=== PATIENT | female | born 1975 | race Caucasian/White ===

== ENCOUNTER 2021-04-03 16:03 | Inpatient (IN) | payer SELFPAY ==
[~2021-04-03] VITALS: Ht 170.2 cm; Wt 95.0 kg
[2021-04-03] MEDS ORDERED: ONDANSETRON PF 4 MG/2 ML VIAL. IVP ONE (16:30)
[2021-04-03] MEDS ORDERED: IV NORMAL SALINE 1000ML BAG 1,000 ML IV ONE ×2 (16:30→17:30)
[2021-04-03 16:41] LABS: BILIRUBIN,URINE NEGATIVE (NEG); CLARITY,URINE CLOUDY; COLOR,URINE YELLOW; NITRITE,URINE NEGATIVE (NEG); PH,URINE 5.5 (<5.0-8.0); PROTEIN,URINE >=300 mg/dL (NEG-TRACE); UROBILINOGEN,URINE 0.2 mg/dL (0.2 mg/dL)
[2021-04-03 16:46] LABS: BARBITURATES NEG (NEG); BENZODIAZEPINES NEG (NEG); CANNABINOIDS POS (NEG); COCAINE NEG (NEG); METHADONE NEG (NEG); OPIATES NEG (NEG); PHENCYCLIDINE NEG (NEG)
[2021-04-03 16:48] LABS: AMPHETAMINE/METHAMPHETAMINE NEG (NEG)
[2021-04-03 16:50] LABS: HYALINE CASTS, URINE MODERATE /HPF; RBC,URINE TNTC /HPF (0-2); WBC,URINE 20-40 /HPF (0-4)
[2021-04-03 16:51] LABS: BACTERIA,URINE MODERATE /HPF (0-FEW)
[2021-04-03 17:01] LABS: BASO # 0.3 x10^3/uL (0.0-0.2); BASO % 1 % (0-3); EOS % 0 % (0-3); HEMATOCRIT 48.4 % (36.0-47.0); HEMOGLOBIN 15.7 g/dL (12.0-15.5); LYMPH # 1.4 x10^3/uL (1.0-4.8); LYMPH % 5 % (24-48); MEAN CORPUSCULAR HEMOGLOBIN 30 pg (25-35); MEAN CORPUSCULAR HGB CONC 33 g/dL (31-37); MEAN CORPUSCULAR VOLUME 93 fL (79-100); MONO # 2.7 x10^3/uL (0.0-1.1); MONO % 10 % (0-9); NEUT # 22.9 x10^3/uL (1.8-7.7); NEUT % 84 % (31-73); PLATELET COUNT 456 x10^3/uL (140-400); RED BLOOD COUNT 5.22 x10^6/uL (3.50-5.40); RED CELL DISTRIBUTION WIDTH 13.2 % (11.5-14.5); WHITE BLOOD COUNT 27.3 x10^3/uL (4.0-11.0)
[2021-04-03] MEDS: MORPHINE SULFATE 4 MG/ML INJ. IV/SQ PRN ×2 (17:01→19:22)
[2021-04-03 17:17] LABS: ALBUMIN 3.6 g/dL (3.4-5.0); ALBUMIN/GLOBULIN RATIO 0.7 (1.0-1.7); CALCIUM 9.9 mg/dL (8.5-10.1); CREATININE 1.5 mg/dL (0.6-1.0); GFR 37.6; POTASSIUM 5.2 mmol/L (3.5-5.1); TOTAL BILIRUBIN 0.4 mg/dL (0.2-1.0); TOTAL PROTEIN 8.8 g/dL (6.4-8.2)
--- NOTE | 2021-04-03 17:42 | RAD ---
INDICATION: Reason: flank pain hx of kidney stones / Spl. Instructions: / History: . COMPARISON: None. TECHNIQUE: Axial CT images obtained through the abdomen and pelvis without contrast. One or more of the following individualized dose reduction techniques were utilized for this examinat ion: 1. Automated exposure control; 2. Adjustment of the mA and/or kV according to patient size; 3 . Use of iterative reconstruction technique. FINDINGS: Mild prominence of the wall the distal esophagus which is not very distended. Abdominal aorta is not aneurysmal. Suspected small fat-containing inguinal hernia. Low-density within the liver at the falciform ligament commonly from focal fat. No peripancreatic fluid collection. The gallbladder is distended at time of exam. Splenic calcified granuloma. Left-sided moderate hydronephrosis and hydroureter with perinephric edema. There is a suspected 3 mm high density focus within the urinary bladder. Urinary bladder is decompressed with prominence the wall and some haziness of the adjacent fat. Nonobstructive right renal stone without right-sided hydronephrosis. No periappendiceal inflammatory changes. No dilated loops of bowel to suggest obstruction. Tiny fat-containing umbilical hernia. Degenerative changes the spine. Sclerosis at sacroiliac joints which can be seen with chronic sacroiliitis or degenerative changes. There is a similar appearance at the pubic symphysis. IMPRESSION: * Left-sided perinephric and periureteral edema with hydronephrosis and hydroureter. This could be e ither from a recently passed ureter stone or infectious in nature from urinary tract infection. * Wall thickening of the urinary bladder with adjacent edema to the fat. Causes such as cystitis are within the differential. * Nonobstructive right renal stone. * Mild prominence the wall the distal esophagus which could be from lack of distention but would cor relate with symptoms given that a pathologic cause such as esophagitis is not excluded. Esophageal ma ss would be less likely in a patient of this age unless they have risk factors. Electronically signed by: Elder Dias MD (04/03/2021 5:40 PM) [id number]
[2021-04-03 18:17] LABS: % LYMPHS 7 % (24-48); % SEGS 78 % (35-66)
[2021-04-03 18:18] LABS: % BANDS 9 % (0-9); % MONOS 6 % (0-10); PLT ESTIMATE INCREASED (ADEQUATE)
[2021-04-03] MEDS ORDERED: INSULIN REGULAR VIAL 100 UNIT in IV NORMAL SALINE 100ML 100 ML IV PRN (19:00)
[2021-04-03] MEDS ORDERED: IV 1/2 NORMAL SALINE 1,000 ML IV SCH (19:00)
[2021-04-03] MEDS ORDERED: POTASSIUM CHLORIDE 10MEQ 100 ML IV PRN ×3 (19:00)
--- NOTE | 2021-04-03 19:12 | PDOC1 ---
History and Physical Date of Admission Date of Admission DATE: 04/03/21 TIME: 18:58 Identification/Chief Complaint Chief Complaint Abdominal pain Source Source: Caregiver, Chart review, Patient History of Present Illness History of Present Illness Ms Bryan is a 45yo female with PMHx DM2, nephrolithiasis, neuropathy who presents to the ED today complaining of dysuria for 1 week and severe bilateral flank pain, symptoms began 3 days ago. She is also complaining of nausea, vomiting which began today, 04/03/2021. Denies any fever, but does have chills. Significant other bedside notes that she has had episodic confusion prior to moving from [place] and has been to neurology initially though very early onset dementia. Of note her hemoglobin A1c has never been less than 14. Since we will continue this for years ago she was treated with nausea and vomiting that started 1 month woman as well as Trulicity. Struggled with follow-up and was going to the "[facility]" clinic and stopped since the COVID-19 pandemic and has not seen a physician in the past year and half. She has never been hospitalized previously but has had outpatient treatment for nephrolithiasis with ESWL. WBC 27.3, Hb 15.7, platelets 156, NA 130, K4.3, chloride 94 HCO3 5 BUN 31, CR 1.5, BUN 13, glucose 467, magnesium 1.9, calcium 9.9, lactic acid 2.7, AST 9, bilirubin 0.4, ALT 10, alkaline phos is 140, albumin 3.6. UDS positive for cannabinoids. UA with large protein large glucose positive ketones positive blood positive leukocyte esterase moderate bacteria negative urine hCG. CT abdomen pelvis with left-sided perinephric and periureteral edema with hydronephrosis and hydroureter, wall thickening of the urinary bladder with adjacent edema to the fat and nonobstructive right renal stone. Given IVF, IV levofloxacin, IV insulin and admitted for further care Past Medical History Cardiovascular: HTN CENTRAL NERVOUS SYSTEM: Periperal neuropathy Renal/: Other (Nephrolithiasis) Endocrine: Diabetes Past Surgical History Past Surgical History: Other (D&C, ESWL) Family History Family History: Diabetes, High Cholestrol, Hypertension Social History Smoke: No ALCOHOL: none Drugs: Marijuana Current Medications Current Medications Current Medications Sodium Chloride 1,000 ml @ 1,000 mls/hr 1X ONCE IV Last administered on 04/03/21at 17:01; Start 04/03/21 at 16:30; Stop 04/03/21 at 17:29; Status DC Morphine Sulfate (Morphine Sulfate) 4 mg PRN Q15MIN PRN IV/SQ PAIN GREATER THAN 3/10 Last administered on 04/03/21at 17:01; Start 04/03/21 at 16:30; Stop 04/04/21 at 16:29 Ondansetron HCl (Zofran) 4 mg 1X ONCE IVP Last administered on 04/03/21at 17:00; Start 04/03/21 at 16:30; Stop 04/03/21 at 16:37; Status DC Sodium Chloride 1,000 ml @ 1,000 mls/hr 1X ONCE IV ; Start 04/03/21 at 17:30; Stop 04/03/21 at 18:29; Status DC Levofloxacin/ Dextrose 100 ml @ 100 mls/hr 1X ONCE IV ; Start 04/03/21 at 18:00; Stop 04/03/21 at 18:59 Allergies Allergies: Coded Allergies: naproxen (Verified Allergy, Intermediate, 04/03/21) GIB Penicillins (Verified Allergy, Unknown, 04/03/21) ROS General: YES: Chills, Night Sweats, Fatigue, Malaise; No: Appetite, Other PSYCHOLOGICAL ROS: YES: Anxiety, Disorientation, Irritablity, Memory difficulties, Mood Swings, Obsessive thoughts; No: Behavioral Disorder, Concentration difficultie, Decreased libido, Depression, Hallucinations, Hostility, Physical abuse, Sexual abuse, Sleep disturbances, Suicidal ideation, Other Eyes: Yes Blurry vision; No Decreased vision, No Double vision, No Dry eyes, No Excessive tearing, No Eye Pain, No Itchy Eyes, No Loss of vision, No Photophobia, No Scotomata, No Uses contacts, No Uses glasses, No Other HEENT: No: Heacaches, Visual Changes, Hearing change, Nasal congestion, Nasal discharge, Oral lesions, Sinus pain, Sore Throat, Epistaxis, Sneezing, Snoring, Tinnitus, Vertigo, Vocal changes, Other ALLERGY AND IMMUNOLOGY: No: Hives, Insect Bite Sensitivity, Itchy/Watery Eyes, Nasal Congestion, Post Nasal Drip, Seasonal Allergies, Other Hematological and Lymphatic: No: Bleeding Problems, Blood Clots, Blood Transfusions, Brusing, Night Sweats, Pallor, Swollen Lymph Nodes, Other ENDOCRINE: No: Breast Changes, Galactorrhea, Hair Pattern Changes, Hot Flashes, Malaise/lethargy, Mood Swings, Palpitations, Polydipsia/polyuria, Skin Changes, Temperature Intolerance, Unexpected Weight Changes, Other Breast: No New/Changing Breast Lumps, No Nipple changes, No Nipple discharge, No Other Respiratory: No: Cough, Hemoptysis, Orthopnea, Pleuritic Pain, Shortness of breath, SOB with excertion, Sputum Changes, Stridor, Tachypnea, Wheezing, Other Cardiovascular: No Chest Pain, No Palpitations, No Orthopnea, No Paroxysmal Noc. Dyspnea, No Edema, No Lt Headedness, No Other Gastrointestinal: Yes Nausea, Yes Abdominal Pain; No Vomiting, No Diarrhea, No Constipation, No Melena, No Hematochezia, No Other Genitourinary: YES Dysuria, YES Frequency, YES Retention, YES Urgency, YES Pain , YES Flank Pain; No Incontinence, No Hematuria, No Discharge, No Other, No , No , No , No , No , No , No Musculoskeletal: No Gait Disturbance, No Joint Pain, No Joint Stiffness, No Joint Swelling, No Muscle Pain, No Muscular Weakness, No Pain In:, No Swelling In:, No Other Neurological: Yes Memory Loss, Yes Numbness/Tingling; No Behavorial Changes, No Bowel/Bladder ControlChng, No Confusion, No Dizziness, No Gait Disturbance, No Headaches, No Impaired Coord/balance, No Seizures, No Speech Problems, No Tremors, No Visual Changes, No Weakness, No Other Skin: No Dry Skin, No Eczema, No Hair Changes, No Lumps, No Mole Changes, No Mottling, No Nail Changes, No Pruritus, No Rash, No Skin Lesion Changes, No Other, No Acne Vitals Vitals Vital Signs Date Time Temp Pulse Resp B/P (MAP) Pulse Ox O2 Delivery O2 Flow Rate FiO2 04/03/21 17:01 24 100 Room Air 04/03/21 16:35 97.9 110 144/82 97.9 Labs Labs Laboratory Tests Test 04/03/21 16:15 04/03/21 16:27 04/03/21 16:54 Urine Collection Type Unknown Urine Color Yellow Urine Clarity Cloudy Urine pH 5.5 (<5.0-8.0) Urine Specific [place] 1.025 (1.000-1.030) Urine Protein >=300 mg/dL (NEG-TRACE) Urine Glucose (UA) >=1000 mg/dL (NEG) Urine Ketones (Stick) >=80 mg/dL (NEG) Urine Blood Large (NEG) Urine Nitrite Negative (NEG) Urine Bilirubin Negative (NEG) Urine Urobilinogen Dipstick 0.2 mg/dL (0.2 mg/dL) Urine Leukocyte Esterase Small (NEG) Urine RBC Tntc /HPF (0-2) Urine WBC 20-40 /HPF (0-4) Urine Squamous Epithelial Cells Mod /LPF Urine Bacteria Moderate /HPF (0-FEW) Urine Hyaline Casts Moderate /HPF Urine Mucus Mod /LPF Urine Opiates Screen Neg (NEG) Urine Methadone Screen Neg (NEG) Urine Barbiturates Neg (NEG) Urine Phencyclidine Screen Neg (NEG) Urine Amphetamine/Methamphetamine Neg (NEG) Urine Benzodiazepines Screen Neg (NEG) Urine Cocaine Screen Neg (NEG) Urine Cannabinoids Screen Pos (NEG) Urine Ethyl Alcohol Neg (NEG) Bedside Urine HCG, Qualitative Hcg negative (Negative) White Blood Count 27.3 x10^3/uL (4.0-11.0) Red Blood Count 5.22 x10^6/uL (3.50-5.40) Hemoglobin 15.7 g/dL (12.0-15.5) Hematocrit 48.4 % (36.0-47.0) Mean Corpuscular Volume 93 fL (79-100) Mean Corpuscular Hemoglobin 30 pg (25-35) Mean Corpuscular Hemoglobin Concent 33 g/dL (31-37) Red Cell Distribution Width 13.2 % (11.5-14.5) Platelet Count 456 x10^3/uL (140-400) Neutrophils (%) (Auto) 84 % (31-73) Lymphocytes (%) (Auto) 5 % (24-48) Monocytes (%) (Auto) 10 % (0-9) Eosinophils (%) (Auto) 0 % (0-3) Basophils (%) (Auto) 1 % (0-3) Neutrophils # (Auto) 22.9 x10^3/uL (1.8-7.7) Lymphocytes # (Auto) 1.4 x10^3/uL (1.0-4.8) Monocytes # (Auto) 2.7 x10^3/uL (0.0-1.1) Eosinophils # (Auto) 0.0 x10^3/uL (0.0-0.7) Basophils # (Auto) 0.3 x10^3/uL (0.0-0.2) Segmented Neutrophils % 78 % (35-66) Band Neutrophils % 9 % (0-9) Lymphocytes % 7 % (24-48) Monocytes % 6 % (0-10) Platelet Estimate Increased (ADEQUATE) Sodium Level 130 mmol/L (136-145) Potassium Level 5.2 mmol/L (3.5-5.1) Chloride Level 94 mmol/L (98-107) Carbon Dioxide Level 5 mmol/L (21-32) Anion Gap 31 (6-14) Blood Urea Nitrogen 13 mg/dL (7-20) Creatinine 1.5 mg/dL (0.6-1.0) Estimated GFR (Cockcroft-Gault) 37.6 BUN/Creatinine Ratio 9 (6-20) Glucose Level 467 mg/dL (70-99) Calcium Level 9.9 mg/dL (8.5-10.1) Total Bilirubin 0.4 mg/dL (0.2-1.0) Aspartate Amino Transf (AST/SGOT) 9 U/L (15-37) Alanine Aminotransferase (ALT/SGPT) 10 U/L (14-59) Alkaline Phosphatase 140 U/L (46-116) Total Protein 8.8 g/dL (6.4-8.2) Albumin 3.6 g/dL (3.4-5.0) Albumin/Globulin Ratio 0.7 (1.0-1.7) Lipase 64 U/L (73-393) Ethyl Alcohol Level < 10 mg/dL (0-10) Laboratory Tests Test 04/03/21 16:15 04/03/21 16:27 04/03/21 16:54 Urine Collection Type Unknown Urine Color Yellow Urine Clarity Cloudy Urine pH 5.5 (<5.0-8.0) Urine Specific [place] 1.025 (1.000-1.030) Urine Protein >=300 mg/dL (NEG-TRACE) Urine Glucose (UA) >=1000 mg/dL (NEG) Urine Ketones (Stick) >=80 mg/dL (NEG) Urine Blood Large (NEG) Urine Nitrite Negative (NEG) Urine Bilirubin Negative (NEG) Urine Urobilinogen Dipstick 0.2 mg/dL (0.2 mg/dL) Urine Leukocyte Esterase Small (NEG) Urine RBC Tntc /HPF (0-2) Urine WBC 20-40 /HPF (0-4) Urine Squamous Epithelial Cells Mod /LPF Urine Bacteria Moderate /HPF (0-FEW) Urine Hyaline Casts Moderate /HPF Urine Mucus Mod /LPF Urine Opiates Screen Neg (NEG) Urine Methadone Screen Neg (NEG) Urine Barbiturates Neg (NEG) Urine Phencyclidine Screen Neg (NEG) Urine Amphetamine/Methamphetamine Neg (NEG) Urine Benzodiazepines Screen Neg (NEG) Urine Cocaine Screen Neg (NEG) Urine Cannabinoids Screen Pos (NEG) Urine Ethyl Alcohol Neg (NEG) Bedside Urine HCG, Qualitative Hcg negative (Negative) White Blood Count 27.3 x10^3/uL (4.0-11.0) Red Blood Count 5.22 x10^6/uL (3.50-5.40) Hemoglobin 15.7 g/dL (12.0-15.5) Hematocrit 48.4 % (36.0-47.0) Mean Corpuscular Volume 93 fL (79-100) Mean Corpuscular Hemoglobin 30 pg (25-35) Mean Corpuscular Hemoglobin Concent 33 g/dL (31-37) Red Cell Distribution Width 13.2 % (11.5-14.5) Platelet Count 456 x10^3/uL (140-400) Neutrophils (%) (Auto) 84 % (31-73) Lymphocytes (%) (Auto) 5 % (24-48) Monocytes (%) (Auto) 10 % (0-9) Eosinophils (%) (Auto) 0 % (0-3) Basophils (%) (Auto) 1 % (0-3) Neutrophils # (Auto) 22.9 x10^3/uL (1.8-7.7) Lymphocytes # (Auto) 1.4 x10^3/uL (1.0-4.8) Monocytes # (Auto) 2.7 x10^3/uL (0.0-1.1) Eosinophils # (Auto) 0.0 x10^3/uL (0.0-0.7) Basophils # (Auto) 0.3 x10^3/uL (0.0-0.2) Segmented Neutrophils % 78 % (35-66) Band Neutrophils % 9 % (0-9) Lymphocytes % 7 % (24-48) Monocytes % 6 % (0-10) Platelet Estimate Increased (ADEQUATE) Sodium Level 130 mmol/L (136-145) Potassium Level 5.2 mmol/L (3.5-5.1) Chloride Level 94 mmol/L (98-107) Carbon Dioxide Level 5 mmol/L (21-32) Anion Gap 31 (6-14) Blood Urea Nitrogen 13 mg/dL (7-20) Creatinine 1.5 mg/dL (0.6-1.0) Estimated GFR (Cockcroft-Gault) 37.6 BUN/Creatinine Ratio 9 (6-20) Glucose Level 467 mg/dL (70-99) Calcium Level 9.9 mg/dL (8.5-10.1) Total Bilirubin 0.4 mg/dL (0.2-1.0) Aspartate Amino Transf (AST/SGOT) 9 U/L (15-37) Alanine Aminotransferase (ALT/SGPT) 10 U/L (14-59) Alkaline Phosphatase 140 U/L (46-116) Total Protein 8.8 g/dL (6.4-8.2) Albumin 3.6 g/dL (3.4-5.0) Albumin/Globulin Ratio 0.7 (1.0-1.7) Lipase 64 U/L (73-393) Ethyl Alcohol Level < 10 mg/dL (0-10) Images Images CT ABDOMEN PELVIS WO CONTRAST Mild prominence of the wall the distal esophagus which is not very distended. Abdominal aorta is not aneurysmal. Suspected small fat-containing inguinal hernia. Low-density within the liver at the falciform ligament commonly from focal fat. No peripancreatic fluid collection. The gallbladder is distended at time of exam. Splenic calcified granuloma. Left-sided moderate hydronephrosis and hydroureter with perinephric edema. There is a suspected 3 mm high density focus within the urinary bladder. Urinary bladder is decompressed with prominence the wall and some haziness of the adjacent fat. Nonobstructive right renal stone without right-sided hydronephrosis. No periappendiceal inflammatory changes. No dilated loops of bowel to suggest obstruction. Tiny fat-containing umbilical hernia. Degenerative changes the spine. Sclerosis at sacroiliac joints which can be seen with chronic sacroiliitis or degenerative changes. There is a similar appearance at the pubic symphysis. IMPRESSION: * Left-sided perinephric and periureteral edema with hydronephrosis and hydroureter. This could be either from a recently passed ureter stone or infectious in nature from urinary tract infection. * Wall thickening of the urinary bladder with adjacent edema to the fat. Causes such as cystitis are within the differential. * Nonobstructive right renal stone. * Mild prominence the wall the distal esophagus which could be from lack of distention but would correlate with symptoms given that a pathologic cause such as esophagitis is not excluded. Esophageal mass would be less likely in a patient of this age unless they have risk factors. VTE Prophylaxis Ordered VTE Prophylaxis Devices: No VTE Pharmacological Prophylaxi: Yes Assessment/Plan Assessment/Plan A/P: Left pyelonephritis - likely due to passed kidney stone. IV levaquin given PCN allergy with little likelihood of cephalosporin cross allergy will change to rocephin. IVF as well Sepsis - given empiric IVF, f/u urine and blood cultures, empiric levaquin for pyelo DKA - IVF insulin and fluids, npo except for water, nausea control. Can take PO and lantus when gap closes ALISHA - multifactorial, vasomotor nephropathy from dehydration 2/2 DKA and possibly some mild obstruction cleared on left Neuropathy - likely diabetic in nature given history of extremely poor control Cannabinoid positive - counseled on the safety and legality Hyponatremia - nutritional and DKA related, will monitor FEN - NPO PPX - heparin FULL CODE Dispo - inpatient Justifications for Admission Other Justification LAZARA AVINA MD Apr 03, 2021 19:12
[2021-04-03] MEDS ORDERED: INSULIN,REGULAR 100 UNIT DRIP 100 ML IV ONE (20:15)
[2021-04-03] MEDS ORDERED: ONDANSETRON PF 4 MG/2 ML VIAL. IVP PRN (21:30)
--- NOTE | 2021-04-03 21:34 | PHYS DOC ---
Past Medical History Past Medical History: Diabetes-Type II Past Surgical History: Other Additional Past Surgical Histo: MULTIPLE D AND C'S Smoking Status: Former Smoker Alcohol Use: Rarely General Adult EDM: Chief Complaint: FLANK PAIN HPI: HPI: Patient is a 45 year old female with a history of diabetes type 2, kidney stones who presents to the ED today complaining of dysuria for 1 week and mo derate bilateral flank pain, symptoms began 3 days ago. She is also complaining of nausea, vomiting, symptoms began today. Denies any fever. Review of Systems: Review of Systems: Constitutional: Denies fever or chills. [] Eyes: Denies change in visual acuity. [] HENT: Denies nasal congestion or sore throat. [] Respiratory: Denies cough or shortness of breath. [] Cardiovascular: Denies chest pain or edema. [] GI: Reports nausea and vomiting. Denies abdominal pain, nausea, diarrhea. [] : Reports dysuria, bilateral flank pain Musculoskeletal: Denies back pain or joint pain. [] Integument: Denies rash. [] Neurologic: Denies headache, focal weakness or sensory changes. [] Psychiatric: Denies depression or anxiety. [] Heart Score: C/O Chest Pain: N/A Risk Factors: Risk Factors: DM, Current or recent (<one month) smoker, HTN, HLP, family history of CAD, obesity. Risk Scores: Score 0 - 3: 2.5% MACE over next 6 weeks - Discharge Home Score 4 - 6: 20.3% MACE over next 6 weeks - Admit for Clinical Observation Score 7 - 10: 72.7% MACE over next 6 weeks - Early Invasive Strategies Current Medications: Current Medications Medications (Trade) Dose Ordered Sig/Yajaira Start Time Stop Time Status Last Admin Dose Admin Insulin Human Regular 100 ml @ 9.77 mls/hr 1X ONCE 04/03/21 20:15 04/03/21 20:16 DC 04/03/21 21:11 7.5 MLS/HR Insulin Human Regular 100 unit/ Sodium Chloride 101 ml @ 0 mls/hr CONT PRN PRN 04/03/21 19:00 Levofloxacin/ Dextrose 100 ml @ 100 mls/hr 1X ONCE 04/03/21 18:00 04/03/21 18:59 DC 04/03/21 19:22 100 MLS/HR Morphine Sulfate (Morphine Sulfate) 4 mg PRN Q2HR PRN 04/03/21 21:30 04/04/21 21:29 Ondansetron HCl (Zofran) 4 mg PRN Q8HRS PRN 04/03/21 21:30 04/04/21 21:29 Potassium Chloride/Water 100 ml @ 100 mls/hr PRN Q1HR PRN 04/03/21 19:00 Sodium Chloride 1,000 ml @ 500 mls/hr Q2H 04/03/21 19:00 04/03/21 20:59 DC 04/03/21 21:13 500 MLS/HR Allergies: Allergies: Allergies Coded Allergies Type Severity Reaction Last Updated Verified naproxen Allergy Intermediate 04/03/21 Yes Penicillins Allergy Unknown 04/03/21 Yes Physical Exam: PE: Constitutional: Well developed, well nourished, no acute distress, non-toxic appearance. [] HENT: Normocephalic, atraumatic, bilateral external ears normal, oropharynx moist, no oral exudates, nose normal. [] Eyes: PERRLA, EOMI, conjunctiva normal, no discharge. [] Neck: Normal range of motion, no tenderness, supple, no stridor. [] Cardiovascular:Heart rate regular rhythm, no murmur [] Lungs & Thorax: Bilateral breath sounds clear to auscultation [] Abdomen: Bowel sounds normal, soft, no tenderness, no masses, no pulsatile masses. [] Skin: Warm, dry, no erythema, no rash. [] Back: No tenderness, moderate bilateral CVA tenderness. [] Extremities: No tenderness, no cyanosis, no clubbing, ROM intact, no edema. [] Neurologic: Alert and oriented X 3, normal motor function, normal sensory function, no focal deficits noted. [] Psychologic: Flat affect, tearful, restless Current Patient Data: Labs: Laboratory Tests Test 04/03/21 16:15 04/03/21 16:27 04/03/21 16:54 04/03/21 18:55 Urine Collection Type Unknown Urine Color Yellow Urine Clarity Cloudy Urine pH 5.5 (<5.0-8.0) Urine Specific [place] 1.025 (1.000-1.030) Urine Protein >=300 mg/dL (NEG-TRACE) Urine Glucose (UA) >=1000 mg/dL (NEG) Urine Ketones (Stick) >=80 mg/dL (NEG) Urine Blood Large (NEG) Urine Nitrite Negative (NEG) Urine Bilirubin Negative (NEG) Urine Urobilinogen Dipstick 0.2 mg/dL (0.2 mg/dL) Urine Leukocyte Esterase Small (NEG) Urine RBC Tntc /HPF (0-2) Urine WBC 20-40 /HPF (0-4) Urine Squamous Epithelial Cells Mod /LPF Urine Bacteria Moderate /HPF (0-FEW) Urine Hyaline Casts Moderate /HPF Urine Mucus Mod /LPF Urine Opiates Screen Neg (NEG) Urine Methadone Screen Neg (NEG) Urine Barbiturates Neg (NEG) Urine Phencyclidine Screen Neg (NEG) Urine Amphetamine/Methamphetamine Neg (NEG) Urine Benzodiazepines Screen Neg (NEG) Urine Cocaine Screen Neg (NEG) Urine Cannabinoids Screen Pos (NEG) Urine Ethyl Alcohol Neg (NEG) POC Urine HCG, Qualitative Hcg negative (Negative) White Blood Count 27.3 x10^3/uL (4.0-11.0) H Red Blood Count 5.22 x10^6/uL (3.50-5.40) Hemoglobin 15.7 g/dL (12.0-15.5) H Hematocrit 48.4 % (36.0-47.0) H Mean Corpuscular Volume 93 fL (79-100) Mean Corpuscular Hemoglobin 30 pg (25-35) Mean Corpuscular Hemoglobin Concent 33 g/dL (31-37) Red Cell Distribution Width 13.2 % (11.5-14.5) Platelet Count 456 x10^3/uL (140-400) H Neutrophils (%) (Auto) 84 % (31-73) H Lymphocytes (%) (Auto) 5 % (24-48) L Monocytes (%) (Auto) 10 % (0-9) H Eosinophils (%) (Auto) 0 % (0-3) Basophils (%) (Auto) 1 % (0-3) Neutrophils # (Auto) 22.9 x10^3/uL (1.8-7.7) H Lymphocytes # (Auto) 1.4 x10^3/uL (1.0-4.8) Monocytes # (Auto) 2.7 x10^3/uL (0.0-1.1) H Eosinophils # (Auto) 0.0 x10^3/uL (0.0-0.7) Basophils # (Auto) 0.3 x10^3/uL (0.0-0.2) H Segmented Neutrophils % 78 % (35-66) H Band Neutrophils % 9 % (0-9) Lymphocytes % 7 % (24-48) L Monocytes % 6 % (0-10) Platelet Estimate Increased (ADEQUATE) Sodium Level 130 mmol/L (136-145) L Potassium Level 5.2 mmol/L (3.5-5.1) H Chloride Level 94 mmol/L (98-107) L Carbon Dioxide Level 5 mmol/L (21-32) *L Anion Gap 31 (6-14) H Blood Urea Nitrogen 13 mg/dL (7-20) Creatinine 1.5 mg/dL (0.6-1.0) H Estimated GFR (Cockcroft-Gault) 37.6 BUN/Creatinine Ratio 9 (6-20) Glucose Level 467 mg/dL (70-99) H Calcium Level 9.9 mg/dL (8.5-10.1) Magnesium Level 1.9 mg/dL (1.8-2.4) Total Bilirubin 0.4 mg/dL (0.2-1.0) Aspartate Amino Transferase (AST) 9 U/L (15-37) L Alanine Aminotransferase (ALT) 10 U/L (14-59) L Alkaline Phosphatase 140 U/L (46-116) H Total Protein 8.8 g/dL (6.4-8.2) H Albumin 3.6 g/dL (3.4-5.0) Albumin/Globulin Ratio 0.7 (1.0-1.7) L Lipase 64 U/L (73-393) L Ethyl Alcohol Level < 10 mg/dL (0-10) Lactic Acid Level 2.7 mmol/L (0.4-2.0) H Test 04/03/21 20:50 Glucose (Fingerstick) 437 mg/dL (70-99) H Laboratory Tests 04/03/21 16:54 Laboratory Tests 04/03/21 16:54 Vital Signs: Vital Signs Date Time Temp Pulse Resp B/P (MAP) Pulse Ox O2 Delivery O2 Flow Rate FiO2 04/03/21 20:15 104 20 149/78 (101) 99 Room Air 04/03/21 16:35 97.9 97.9 EKG: EKG: [] Radiology/Procedures: Radiology/Procedures: []PROCEDURE: CT ABDOMEN PELVIS WO CONTRAST INDICATION: Reason: flank pain hx of kidney stones / Spl. Instructions: / History: . COMPARISON: None. TECHNIQUE: Axial CT images obtained through the abdomen and pelvis without contrast. One or more of the following individualized dose reduction techniques were utilized for this examination: 1. Automated exposure control; 2. Adjustment of the mA and/or kV according to patient size; 3. Use of iterative reconstruction technique. FINDINGS: Mild prominence of the wall the distal esophagus which is not very distended. Abdominal aorta is not aneurysmal. Suspected small fat-containing inguinal hernia. Low-density within the liver at the falciform ligament commonly from focal fat. No peripancreatic fluid collection. The gallbladder is distended at time of exam. Splenic calcified granuloma. Left-sided moderate hydronephrosis and hydroureter with perinephric edema. There is a suspected 3 mm high density focus within the urinary bladder. Urinary bladder is decompressed with prominence the wall and some haziness of the adjacent fat. Nonobstructive right renal stone without right-sided hydronephrosis. No periappendiceal inflammatory changes. No dilated loops of bowel to suggest obstruction. Tiny fat-containing umbilical hernia. Degenerative changes the spine. Sclerosis at sacroiliac joints which can be seen with chronic sacroiliitis or degenerative changes. There is a similar appearance at the pubic symphysis. IMPRESSION: * Left-sided perinephric and periureteral edema with hydronephrosis and hydroureter. This could be either from a recently passed ureter stone or infectious in nature from urinary tract infection. * Wall thickening of the urinary bladder with adjacent edema to the fat. Causes such as cystitis are within the differential. * Nonobstructive right renal stone. * Mild prominence the wall the distal esophagus which could be from lack of distention but would correlate with symptoms given that a pathologic cause such as esophagitis is not excluded. Esophageal mass would be less likely in a patient of this age unless they have risk factors. Electronically signed by: Basia Dias MD (04/03/2021 5:40 PM) [id number] DICTATED and SIGNED BY: BASIA DIAS MD DATE: 04/03/21 [id number] 0 Course & Med Decision Making: Course & Med Decision Making Pertinent Labs and Imaging studies reviewed. (See chart for details) This is a 45-year-old female patient presented to the ED today complaining of bilateral flank pain for 3 days and dysuria for 1 week. Currently vomiting in the ED. Vitals on arrival to the ED temperature 97.9, heart rate 110, respiration 26, patient is hyperventilating right on arrival, O2 sats 100% on room air, blood pressure 144/82. CBC with a WBC of 27.3 with a significant left shift. CMP with potassium of 5 .2, CO2 is 5.patient was hyperventilating when labs were done. Arterial blood puncture ordered. Creatinine 1.5. Glucose 467 with an anion gap of 31. Dr. Nova ordered insulin drip. Patient has been given 2 L of IV fluids and Levaquin. Dragon Disclaimer: Dragon Disclaimer: This electronic medical record was generated, in whole or in part, using a voice recognition dictation system. Date and Time of Reassessment Date: Apr 03, 2021 Time: 17:30 Fluid Challenge Is the fluid challenge complet: No IBW Target Volume Used: Yes BMI > 30: Yes Vital Signs Vital Signs: Vital Signs Date Time Temp Pulse Resp B/P (MAP) Pulse Ox O2 Delivery O2 Flow Rate FiO2 04/03/21 20:15 104 20 149/78 (101) 99 Room Air 04/03/21 16:35 97.9 97.9 Temperature Source: Oral Respirations Respiratory Effort: Normal Respiratory Pattern: Normal Cardiovascular Pulse Rhythm: Regular Heart: Nml rate, reg. rhythm Lung Sounds Breath Sounds: Clear Capillary Refil Capillary Refill: Rt Hand > 3 seconds Peripheral Pulse Pulse Location: Monitor Pulse Strength: Normal (2+) Pulse Assessment Method: NIBP Integumentary Skin: Warm Skin Moisture: Moist Skin Turgor: Normal Skin Color: warm Fingernail Color: WNL Departure Departure Impression: Primary Impression: Acute pyelonephritis Additional Impressions: Sepsis Qualified Codes: A41.9 - Sepsis, unspecified organism DKA (diabetic ketoacidosis) Qualified Codes: E11.10 - Type 2 diabetes mellitus with ketoacidosis without coma Acute kidney injury Disposition: 09 ADMITTED INPATIENT Condition: STABLE Referrals: NO PCP (PCP) GABRIELA SANTOYO [employer] Apr 03, 2021 21:34
[2021-04-03 23:00] VITALS: BP 125/77
[2021-04-03] MEDS ORDERED: hydrALAZINE 20 MG/ML VIAL. IVP PRN (23:00)
[2021-04-04] MEDS: MORPHINE SULFATE 4 MG/ML INJ. IVP PRN ×2 (00:12→02:10)
[2021-04-04] MEDS: IV NORMAL SALINE 1000ML BAG 1,000 ML IV PRN ×3 (00:13→17:48)
[2021-04-04] MEDS: cefTRIAXone IV Push 2 GM VIAL. IVP SCH (00:18)
[2021-04-04] MEDS ORDERED: CBD (00:49)
[2021-04-04] MEDS ORDERED: DELTA 8 (00:49)
[2021-04-04 03:12] VITALS: BP 109/70
--- NOTE | 2021-04-04 05:25 | NUR ---
lAB HERE TO DRAW ORDERED LAB WORK, were informed of the need to have results soon, as the need to adjust her insulin, lantus administration, etc, is pending on the results.
[2021-04-04 07:00] VITALS: BP 117/65
--- NOTE | 2021-04-04 07:30 | NUR ---
Report given to Yelena, informed of lab info pending, and orders based on these results.
[2021-04-04 07:52] LABS: BASO # 0.1 x10^3/uL (0.0-0.2); BASO % 0 % (0-3); EOS % 0 % (0-3); HEMATOCRIT 42.7 % (36.0-47.0); HEMOGLOBIN 14.7 g/dL (12.0-15.5); LYMPH # 1.3 x10^3/uL (1.0-4.8); LYMPH % 6 % (24-48); MEAN CORPUSCULAR HEMOGLOBIN 31 pg (25-35); MEAN CORPUSCULAR HGB CONC 34 g/dL (31-37); MEAN CORPUSCULAR VOLUME 90 fL (79-100); MONO # 2.6 x10^3/uL (0.0-1.1); MONO % 12 % (0-9); NEUT # 17.2 x10^3/uL (1.8-7.7); NEUT % 81 % (31-73); PLATELET COUNT 359 x10^3/uL (140-400); RED BLOOD COUNT 4.75 x10^6/uL (3.50-5.40); RED CELL DISTRIBUTION WIDTH 12.8 % (11.5-14.5); WHITE BLOOD COUNT 21.2 x10^3/uL (4.0-11.0)
[2021-04-04 08:04] LABS: CALCIUM 9.3 mg/dL (8.5-10.1); CREATININE 1.2 mg/dL (0.6-1.0); GFR 48.6; POTASSIUM 3.7 mmol/L (3.5-5.1)
[2021-04-04] MEDS: MORPHINE SULFATE 4 MG/ML INJ. IV/SQ PRN (08:24)
--- NOTE | 2021-04-04 09:51 | PDOC ---
PROGRESS NOTES Date of Service: DATE: 04/04/21 TIME: 09:51 Chief Complaint Chief Complaint Images Images CT ABDOMEN PELVIS WO CONTRAST Mild prominence of the wall the distal esophagus which is not very distended. Abdominal aorta is not aneurysmal. Suspected small fat-containing inguinal hernia. Low-density within the liver at the falciform ligament commonly from focal fat. No peripancreatic fluid collection. The gallbladder is distended at time of exam. Splenic calcified granuloma. Left-sided moderate hydronephrosis and hydroureter with perinephric edema. There is a suspected 3 mm high density focus within the urinary bladder. Urinary bladder is decompressed with prominence the wall and some haziness of the adjacent fat. Nonobstructive right renal stone without right-sided hydronephrosis. No periappendiceal inflammatory changes. No dilated loops of bowel to suggest obstruction. Tiny fat-containing umbilical hernia. Degenerative changes the spine. Sclerosis at sacroiliac joints which can be seen with chronic sacroiliitis or degenerative changes. There is a similar appearance at the pubic symphysis. IMPRESSION: * Left-sided perinephric and periureteral edema with hydronephrosis and hydroureter. This could be either from a recently passed ureter stone or infectious in nature from urinary tract infection. * Wall thickening of the urinary bladder with adjacent edema to the fat. Causes such as cystitis are within the differential. * Nonobstructive right renal stone. * Mild prominence the wall the distal esophagus which could be from lack of distention but would correlate with symptoms given that a pathologic cause such as esophagitis is not excluded. Esophageal mass would be less likely in a patient of this age unless they have risk factors. VTE Prophylaxis Ordered VTE Prophylaxis Devices: No VTE Pharmacological Prophylaxi: Yes Assessment/Plan Assessment/Plan A/P: Left pyelonephritis - likely due to passed kidney stone. IV levaquin given PCN allergy with little likelihood of cephalosporin cross allergy will change to rocephin. IVF as well Sepsis - given empiric IVF, f/u urine and blood cultures, empiric levaquin for pyelo DKA - IVF insulin and fluids, npo except for water, nausea control. Can take PO and lantus when gap closes ALISHA - multifactorial, vasomotor nephropathy from dehydration 2/2 DKA and possibly some mild obstruction cleared on left Neuropathy - likely diabetic in nature given history of extremely poor control Cannabinoid positive - counseled on the safety and legality Hyponatremia - nutritional and DKA related, will monitor FEN - NPO PPX - heparin FULL CODE Dispo - inpatient Justifications for Admission Justifications for Admission Other Justification History of Present Illness History of Present Illness dentification/Chief Complaint Chief Complaint Abdominal pain Source Source: Caregiver, Chart review, Patient History of Present Illness History of Present Illness Ms Bryan is a 45yo female with PMHx DM2, nephrolithiasis, neuropathy who presents to the ED today complaining of dysuria for 1 week and severe bilateral flank pain, symptoms began 3 days ago. She is also complaining of nausea, vomiting which began today, 04/03/2021. Denies any fever, but does have chills. Significant other bedside notes that she has had episodic confusion prior to moving from [place] and has been to neurology initially though very early onset dementia. Of note her hemoglobin A1c has never been less than 14. Since we will continue this for years ago she was treated with nausea and vomiting that started 1 month woman as well as Trulicity. Struggled with follow-up and was going to the [facility] and stopped since the COVID-19 pandemic and has not seen a physician in the past year and half. She has never been hospitalized previously but has had outpatient treatment for nephrolithiasis with ESWL. WBC 27.3, Hb 15.7, platelets 156, NA 130, K4.3, chloride 94 HCO3 5 BUN 31, CR 1.5, BUN 13, glucose 467, magnesium 1.9, calcium 9.9, lactic acid 2.7, AST 9, bi lirubin 0.4, ALT 10, alkaline phos is 140, albumin 3.6. UDS positive for cannabinoids. UA with large protein large glucose positive ketones positive blood positive leukocyte esterase moderate bacteria negative urine hCG. CT abdomen pelvis with left-sided perinephric and periureteral edema with hydronephrosis and hydroureter, wall thickening of the urinary bladder with adjacent edema to the fat and nonobstructive right renal stone. Given IVF, IV levofloxacin, IV insulin and admitted for further care Past Medical History Cardiovascular: HTN CENTRAL NERVOUS SYSTEM: Periperal neuropathy Renal/: Other (Nephrolithiasis) Endocrine: Diabetes Past Surgical History Past Surgical History: Other (D&C, ESWL) Family History Family History: Diabetes, High Cholestrol, Hypertension Social History Smoke: No ALCOHOL: none Drugs: Marijuana Current Medications Current Medications Current Medications Sodium Chloride 1,000 ml @ 1,000 mls/hr 1X ONCE IV Last administered on 04/03/21at 17:01; Start 04/03/21 at 16:30; Stop 04/03/21 at 17:29; Status DC Morphine Sulfate (Morphine Sulfate) 4 mg PRN Q15MIN PRN IV/SQ PAIN GREATER THAN 3/10 Last administered on 04/03/21at 17:01; Start 04/03/21 at 16:30; Stop 04/04/21 at 16:29 Ondansetron HCl (Zofran) 4 mg 1X ONCE IVP Last administered on 04/03/21at 17:00; Start 04/03/21 at 16:30; Stop 04/03/21 at 16:37; Status DC Sodium Chloride 1,000 ml @ 1,000 mls/hr 1X ONCE IV ; Start 04/03/21 at 17:30; Stop 04/03/21 at 18:29; Status DC Levofloxacin/ Dextrose 100 ml @ 100 mls/hr 1X ONCE IV ; Start 04/03/21 at 18:00; Stop 04/03/21 at 18:59 Allergies Allergies: Coded Allergies: naproxen (Verified Allergy, Intermediate, 04/03/21) GIB Penicillins (Verified Allergy, Unknown, 04/03/21) ROS General: YES: Chills, Night Sweats, Fatigue, Malaise; No: Appetite, Other PSYCHOLOGICAL ROS: YES: Anxiety, Disorientation, Irritablity, Memory difficul ties, Mood Swings, Obsessive thoughts; No: Behavioral Disorder, Concentration difficultie, Decreased libido, Depression, Hallucinations, Hostility, Physical abuse, Sexual abuse, Sleep disturbances, Suicidal ideation, Other Eyes: Yes Blurry vision; No Decreased vision, No Double vision, No Dry eyes, No Excessive tearing, No Eye Pain, No Itchy Eyes, No Loss of vision, No Photophobia, No Scotomata, No Uses contacts, No Uses glasses, No Other HEENT: No: Heacaches, Visual Changes, Hearing change, Nasal congestion, Nasal discharge, Oral lesions, Sinus pain, Sore Throat, Epistaxis, Sneezing, Snoring, Tinnitus, Vertigo, Vocal changes, Other ALLERGY AND IMMUNOLOGY: No: Hives, Insect Bite Sensitivity, Itchy/Watery Eyes, Nasal Congestion, Post Nasal Drip, Seasonal Allergies, Other Hematological and Lymphatic: No: Bleeding Problems, Blood Clots, Blood Transfu sions, Brusing, Night Sweats, Pallor, Swollen Lymph Nodes, Other ENDOCRINE: No: Breast Changes, Galactorrhea, Hair Pattern Changes, Hot Flashes, Malaise/lethargy, Mood Swings, Palpitations, Polydipsia/polyuria, Skin Changes, Temperature Intolerance, Unexpected Weight Changes, Other Breast: No New/Changing Breast Lumps, No Nipple changes, No Nipple discharge, No Other Respiratory: No: Cough, Hemoptysis, Orthopnea, Pleuritic Pain, Shortness of breath, SOB with excertion, Sputum Changes, Stridor, Tachypnea, Wheezing, Other Cardiovascular: No Chest Pain, No Palpitations, No Orthopnea, No Paroxysmal Noc. Dyspnea, No Edema, No Lt Headedness, No Other Gastrointestinal: Yes Nausea, Yes Abdominal Pain; No Vomiting, No Diarrhea, No Constipation, No Melena, No Hematochezia, No Other Genitourinary: YES Dysuria, YES Frequency, YES Retention, YES Urgency, YES Pain , YES Flank Pain; No Incontinence, No Hematuria, No Discharge, No Other, No , No , No , No , No , No , No Musculoskeletal: No Gait Disturbance, No Joint Pain, No Joint Stiffness, No Joint Swelling, No Muscle Pain, No Muscular Weakness, No Pain In:, No Swelling In:, No Other Neurological: Yes Memory Loss, Yes Numbness/Tingling; No Behavorial Changes, No Bowel/Bladder ControlChng, No Confusion, No Dizziness, No Gait Disturbance, No Headaches, No Impaired Coord/balance, No Seizures, No Speech Problems, No Tremors, No Visual Changes, No Weakness, No Other Skin: No Dry Skin, No Eczema, No Hair Changes, No Lumps, No Mole Changes, No Mottling, No Nail Changes, No Pruritus, No Rash, No Skin Lesion Changes, No Other, No Acne 04-04 Left pyelonephritis - passed kidney stone. IV levaquin given PCN allergy with little likelihood of cephalosporin cross allergy will change to rocephin. IVF as well Left-sided moderate hydronephrosis and hydroureter with perinephric edema. There is a suspected 3 mm high density focus within the urinary bladder. Urinary bladder is decompressed with prominence the wall and some haziness of the adjacent fat. Nonobstructive right renal stone without right-sided hydronephrosis. Sepsis - given empiric IVF, f/u urine and blood cultures, empiric levaquin for pyelo DKA - IVF insulin and fluids, npo except for water, nausea control. Can take PO and lantus when gap closes ALISHA - multifactorial, vasomotor nephropathy from dehydration 2/2 DKA and possibly some mild obstruction cleared on left Neuropathy - likely diabetic in nature given history of extremely poor control Cannabinoid positive - counseled on the safety and legality Hyponatremia - nutritional and DKA related D/W RN ID CONSULT 37 min pt exam, chart review, > 50% of time spent with exam, chart review, pt care coordination Vitals Vitals Vital Signs Date Time Temp Pulse Resp B/P (MAP) Pulse Ox O2 Delivery O2 Flow Rate FiO2 04/04/21 08:24 19 93 Room Air 04/04/21 07:00 98.9 99 117/65 (82) 98.9 Physical Exam Physical Exam Constitutional: Well developed, well nourished, no acute distress, non-toxic appearance. [] HENT: Normocephalic, atraumatic, bilateral external ears normal, oropharynx moist, no oral exudates, nose normal. [] Eyes: PERRLA, EOMI, conjunctiva normal, no discharge. [] Neck: Normal range of motion, no tenderness, supple, no stridor. [] Cardiovascular:Heart rate regular rhythm, no murmur [] Lungs & Thorax: Bilateral breath sounds clear to auscultation [] Abdomen: Bowel sounds normal, soft, no tenderness, no masses, no pulsatile m asses. [] Skin: Warm, dry, no erythema, no rash. [] Back: No tenderness, moderate bilateral CVA tenderness. [] Extremities: No tenderness, no cyanosis, no clubbing, ROM intact, no edema. [] Neurologic: Alert and oriented X 3, normal motor function, normal sensory function, no focal deficits noted. [] Psychologic: Flat affec General: Alert, Oriented X3, Cooperative, No acute distress Abdomen: Normal bowel sounds Extremities: No cyanosis, No edema Labs LABS TECHNIQUE: Axial CT images obtained through the abdomen and pelvis without contrast. One or more of the following individualized dose reduction techniques were utilized for this examination: 1. Automated exposure control; 2. Adjustment of the mA and/or kV according to patient size; 3. Use of iterative reconstruction technique. FINDINGS: Mild prominence of the wall the distal esophagus which is not very distended. Abdominal aorta is not aneurysmal. Suspected small fat-containing inguinal hernia. Low-density within the liver at the falciform ligament commonly from focal fat. No peripancreatic fluid collection. The gallbladder is distended at time of exam. Splenic calcified granuloma. Left-sided moderate hydronephrosis and hydroureter with perinephric edema. There is a suspected 3 mm high density focus within the urinary bladder. Urinary bladder is decompressed with prominence the wall and some haziness of the adjacent fat. Nonobstructive right renal stone without right-sided hydronephrosis. No periappendiceal inflammatory changes. No dilated loops of bowel to suggest obstruction. Tiny fat-containing umbilical hernia. Degenerative changes the spine. Sclerosis at sacroiliac joints which can be seen with chronic sacroiliitis or de generative changes. There is a similar appearance at the pubic symphysis. IMPRESSION: * Left-sided perinephric and periureteral edema with hydronephrosis and hydroureter. This could be either from a recently passed ureter stone or infectious in nature from urinary tract infection. * Wall thickening of the urinary bladder with adjacent edema to the fat. Causes such as cystitis are within the differential. * Nonobstructive right renal stone. * Mild prominence the wall the distal esophagus which could be from lack of distention but would correlate with symptoms given that a pathologic cause such as esophagitis is not excluded. Esophageal mass would be less likely in a patient of this age unless they have risk factors. Electronically signed by: Elder Dias MD (04/03/2021 5:40 PM) [id number] Laboratory Tests Test 04/03/21 16:15 04/03/21 16:27 04/03/21 16:54 04/03/21 18:55 Urine Collection Type Unknown Urine Color Yellow Urine Clarity Cloudy Urine pH 5.5 (<5.0-8.0) Urine Specific [place] 1.025 (1.000-1.030) Urine Protein >=300 mg/dL (NEG-TRACE) Urine Glucose (UA) >=1000 mg/dL (NEG) Urine Ketones (Stick) >=80 mg/dL (NEG) Urine Blood Large (NEG) Urine Nitrite Negative (NEG) Urine Bilirubin Negative (NEG) Urine Urobilinogen Dipstick 0.2 mg/dL (0.2 mg/dL) Urine Leukocyte Esterase Small (NEG) Urine RBC Tntc /HPF (0-2) Urine WBC 20-40 /HPF (0-4) Urine Squamous Epithelial Cells Mod /LPF Urine Bacteria Moderate /HPF (0-FEW) Urine Hyaline Casts Moderate /HPF Urine Mucus Mod /LPF Urine Opiates Screen Neg (NEG) Urine Methadone Screen Neg (NEG) Urine Barbiturates Neg (NEG) Urine Phencyclidine Screen Neg (NEG) Urine Amphetamine/Methamphetamine Neg (NEG) Urine Benzodiazepines Screen Neg (NEG) Urine Cocaine Screen Neg (NEG) Urine Cannabinoids Screen Pos (NEG) Urine Ethyl Alcohol Neg (NEG) Bedside Urine HCG, Qualitative Hcg negative (Negative) White Blood Count 27.3 x10^3/uL (4.0-11.0) Red Blood Count 5.22 x10^6/uL (3.50-5.40) Hemoglobin 15.7 g/dL (12.0-15.5) Hematocrit 48.4 % (36.0-47.0) Mean Corpuscular Volume 93 fL (79-100) Mean Corpuscular Hemoglobin 30 pg (25-35) Mean Corpuscular Hemoglobin Concent 33 g/dL (31-37) Red Cell Distribution Width 13.2 % (11.5-14.5) Platelet Count 456 x10^3/uL (140-400) Neutrophils (%) (Auto) 84 % (31-73) Lymphocytes (%) (Auto) 5 % (24-48) Monocytes (%) (Auto) 10 % (0-9) Eosinophils (%) (Auto) 0 % (0-3) Basophils (%) (Auto) 1 % (0-3) Neutrophils # (Auto) 22.9 x10^3/uL (1.8-7.7) Lymphocytes # (Auto) 1.4 x10^3/uL (1.0-4.8) Monocytes # (Auto) 2.7 x10^3/uL (0.0-1.1) Eosinophils # (Auto) 0.0 x10^3/uL (0.0-0.7) Basophils # (Auto) 0.3 x10^3/uL (0.0-0.2) Segmented Neutrophils % 78 % (35-66) Band Neutrophils % 9 % (0-9) Lymphocytes % 7 % (24-48) Monocytes % 6 % (0-10) Platelet Estimate Increased (ADEQUATE) Sodium Level 130 mmol/L (136-145) Potassium Level 5.2 mmol/L (3.5-5.1) Chloride Level 94 mmol/L (98-107) Carbon Dioxide Level 5 mmol/L (21-32) Anion Gap 31 (6-14) Blood Urea Nitrogen 13 mg/dL (7-20) Creatinine 1.5 mg/dL (0.6-1.0) Estimated GFR (Cockcroft-Gault) 37.6 BUN/Creatinine Ratio 9 (6-20) Glucose Level 467 mg/dL (70-99) Calcium Level 9.9 mg/dL (8.5-10.1) Magnesium Level 1.9 mg/dL (1.8-2.4) Total Bilirubin 0.4 mg/dL (0.2-1.0) Aspartate Amino Transf (AST/SGOT) 9 U/L (15-37) Alanine Aminotransferase (ALT/SGPT) 10 U/L (14-59) Alkaline Phosphatase 140 U/L (46-116) Total Protein 8.8 g/dL (6.4-8.2) Albumin 3.6 g/dL (3.4-5.0) Albumin/Globulin Ratio 0.7 (1.0-1.7) Lipase 64 U/L (73-393) Ethyl Alcohol Level < 10 mg/dL (0-10) Lactic Acid Level 2.7 mmol/L (0.4-2.0) Test 04/03/21 20:50 04/03/21 21:55 04/03/21 22:30 04/03/21 23:42 Glucose (Fingerstick) 437 mg/dL (70-99) 404 mg/dL (70-99) 330 mg/dL (70-99) Lactic Acid Level 3.5 mmol/L (0.4-2.0) SARS-CoV-2 Antigen (Rapid) Negative (NEGATIVE) Test 04/04/21 01:04 04/04/21 02:14 04/04/21 03:24 04/04/21 04:41 Glucose (Fingerstick) 267 mg/dL (70-99) 186 mg/dL (70-99) 154 mg/dL (70-99) 151 mg/dL (70-99) Test 04/04/21 05:35 04/04/21 05:50 04/04/21 07:38 04/04/21 09:34 Glucose (Fingerstick) 152 mg/dL (70-99) 158 mg/dL (70-99) 155 mg/dL (70-99) White Blood Count 21.2 x10^3/uL (4.0-11.0) Red Blood Count 4.75 x10^6/uL (3.50-5.40) Hemoglobin 14.7 g/dL (12.0-15.5) Hematocrit 42.7 % (36.0-47.0) Mean Corpuscular Volume 90 fL (79-100) Mean Corpuscular Hemoglobin 31 pg (25-35) Mean Corpuscular Hemoglobin Concent 34 g/dL (31-37) Red Cell Distribution Width 12.8 % (11.5-14.5) Platelet Count 359 x10^3/uL (140-400) Neutrophils (%) (Auto) 81 % (31-73) Lymphocytes (%) (Auto) 6 % (24-48) Monocytes (%) (Auto) 12 % (0-9) Eosinophils (%) (Auto) 0 % (0-3) Basophils (%) (Auto) 0 % (0-3) Neutrophils # (Auto) 17.2 x10^3/uL (1.8-7.7) Lymphocytes # (Auto) 1.3 x10^3/uL (1.0-4.8) Monocytes # (Auto) 2.6 x10^3/uL (0.0-1.1) Eosinophils # (Auto) 0.0 x10^3/uL (0.0-0.7) Basophils # (Auto) 0.1 x10^3/uL (0.0-0.2) Sodium Level 138 mmol/L (136-145) Potassium Level 3.7 mmol/L (3.5-5.1) Chloride Level 107 mmol/L (98-107) Carbon Dioxide Level 14 mmol/L (21-32) Anion Gap 17 (6-14) Blood Urea Nitrogen 17 mg/dL (7-20) Creatinine 1.2 mg/dL (0.6-1.0) Estimated GFR (Cockcroft-Gault) 48.6 Glucose Level 133 mg/dL (70-99) Lactic Acid Level 1.4 mmol/L (0.4-2.0) Calcium Level 9.3 mg/dL (8.5-10.1) Phosphorus Level 1.8 mg/dL (2.6-4.7) Assessment and Plan Assessmemt and Plan Problems Medical Problems: (1) Acute kidney injury Status: Acute (2) Acute pyelonephritis Status: Acute (3) DKA (diabetic ketoacidosis) Status: Acute (4) Sepsis Status: Acute Comment Review of Relevant I have reviewed the following items hayde (where applicable) has been applied. Labs Laboratory Tests Test 04/03/21 16:15 04/03/21 16:27 04/03/21 16:54 04/03/21 18:55 Urine Collection Type Unknown Urine Color Yellow Urine Clarity Cloudy Urine pH 5.5 (<5.0-8.0) Urine Specific [place] 1.025 (1.000-1.030) Urine Protein >=300 mg/dL (NEG-TRACE) Urine Glucose (UA) >=1000 mg/dL (NEG) Urine Ketones (Stick) >=80 mg/dL (NEG) Urine Blood Large (NEG) Urine Nitrite Negative (NEG) Urine Bilirubin Negative (NEG) Urine Urobilinogen Dipstick 0.2 mg/dL (0.2 mg/dL) Urine Leukocyte Esterase Small (NEG) Urine RBC Tntc /HPF (0-2) Urine WBC 20-40 /HPF (0-4) Urine Squamous Epithelial Cells Mod /LPF Urine Bacteria Moderate /HPF (0-FEW) Urine Hyaline Casts Moderate /HPF Urine Mucus Mod /LPF Urine Opiates Screen Neg (NEG) Urine Methadone Screen Neg (NEG) Urine Barbiturates Neg (NEG) Urine Phencyclidine Screen Neg (NEG) Urine Amphetamine/Methamphetamine Neg (NEG) Urine Benzodiazepines Screen Neg (NEG) Urine Cocaine Screen Neg (NEG) Urine Cannabinoids Screen Pos (NEG) Urine Ethyl Alcohol Neg (NEG) Bedside Urine HCG, Qualitative Hcg negative (Negative) White Blood Count 27.3 x10^3/uL (4.0-11.0) Red Blood Count 5.22 x10^6/uL (3.50-5.40) Hemoglobin 15.7 g/dL (12.0-15.5) Hematocrit 48.4 % (36.0-47.0) Mean Corpuscular Volume 93 fL (79-100) Mean Corpuscular Hemoglobin 30 pg (25-35) Mean Corpuscular Hemoglobin Concent 33 g/dL (31-37) Red Cell Distribution Width 13.2 % (11.5-14.5) Platelet Count 456 x10^3/uL (140-400) Neutrophils (%) (Auto) 84 % (31-73) Lymphocytes (%) (Auto) 5 % (24-48) Monocytes (%) (Auto) 10 % (0-9) Eosinophils (%) (Auto) 0 % (0-3) Basophils (%) (Auto) 1 % (0-3) Neutrophils # (Auto) 22.9 x10^3/uL (1.8-7.7) Lymphocytes # (Auto) 1.4 x10^3/uL (1.0-4.8) Monocytes # (Auto) 2.7 x10^3/uL (0.0-1.1) Eosinophils # (Auto) 0.0 x10^3/uL (0.0-0.7) Basophils # (Auto) 0.3 x10^3/uL (0.0-0.2) Segmented Neutrophils % 78 % (35-66) Band Neutrophils % 9 % (0-9) Lymphocytes % 7 % (24-48) Monocytes % 6 % (0-10) Platelet Estimate Increased (ADEQUATE) Sodium Level 130 mmol/L (136-145) Potassium Level 5.2 mmol/L (3.5-5.1) Chloride Level 94 mmol/L (98-107) Carbon Dioxide Level 5 mmol/L (21-32) Anion Gap 31 (6-14) Blood Urea Nitrogen 13 mg/dL (7-20) Creatinine 1.5 mg/dL (0.6-1.0) Estimated GFR (Cockcroft-Gault) 37.6 BUN/Creatinine Ratio 9 (6-20) Glucose Level 467 mg/dL (70-99) Calcium Level 9.9 mg/dL (8.5-10.1) Magnesium Level 1.9 mg/dL (1.8-2.4) Total Bilirubin 0.4 mg/dL (0.2-1.0) Aspartate Amino Transf (AST/SGOT) 9 U/L (15-37) Alanine Aminotransferase (ALT/SGPT) 10 U/L (14-59) Alkaline Phosphatase 140 U/L (46-116) Total Protein 8.8 g/dL (6.4-8.2) Albumin 3.6 g/dL (3.4-5.0) Albumin/Globulin Ratio 0.7 (1.0-1.7) Lipase 64 U/L (73-393) Ethyl Alcohol Level < 10 mg/dL (0-10) Lactic Acid Level 2.7 mmol/L (0.4-2.0) Test 04/03/21 20:50 04/03/21 21:55 04/03/21 22:30 04/03/21 23:42 Glucose (Fingerstick) 437 mg/dL (70-99) 404 mg/dL (70-99) 330 mg/dL (70-99) Lactic Acid Level 3.5 mmol/L (0.4-2.0) SARS-CoV-2 Antigen (Rapid) Negative (NEGATIVE) Test 04/04/21 01:04 04/04/21 02:14 04/04/21 03:24 04/04/21 04:41 Glucose (Fingerstick) 267 mg/dL (70-99) 186 mg/dL (70-99) 154 mg/dL (70-99) 151 mg/dL (70-99) Test 04/04/21 05:35 04/04/21 05:50 04/04/21 07:38 04/04/21 09:34 Glucose (Fingerstick) 152 mg/dL (70-99) 158 mg/dL (70-99) 155 mg/dL (70-99) White Blood Count 21.2 x10^3/uL (4.0-11.0) Red Blood Count 4.75 x10^6/uL (3.50-5.40) Hemoglobin 14.7 g/dL (12.0-15.5) Hematocrit 42.7 % (36.0-47.0) Mean Corpuscular Volume 90 fL (79-100) Mean Corpuscular Hemoglobin 31 pg (25-35) Mean Corpuscular Hemoglobin Concent 34 g/dL (31-37) Red Cell Distribution Width 12.8 % (11.5-14.5) Platelet Count 359 x10^3/uL (140-400) Neutrophils (%) (Auto) 81 % (31-73) Lymphocytes (%) (Auto) 6 % (24-48) Monocytes (%) (Auto) 12 % (0-9) Eosinophils (%) (Auto) 0 % (0-3) Basophils (%) (Auto) 0 % (0-3) Neutrophils # (Auto) 17.2 x10^3/uL (1.8-7.7) Lymphocytes # (Auto) 1.3 x10^3/uL (1.0-4.8) Monocytes # (Auto) 2.6 x10^3/uL (0.0-1.1) Eosinophils # (Auto) 0.0 x10^3/uL (0.0-0.7) Basophils # (Auto) 0.1 x10^3/uL (0.0-0.2) Sodium Level 138 mmol/L (136-145) Potassium Level 3.7 mmol/L (3.5-5.1) Chloride Level 107 mmol/L (98-107) Carbon Dioxide Level 14 mmol/L (21-32) Anion Gap 17 (6-14) Blood Urea Nitrogen 17 mg/dL (7-20) Creatinine 1.2 mg/dL (0.6-1.0) Estimated GFR (Cockcroft-Gault) 48.6 Glucose Level 133 mg/dL (70-99) Lactic Acid Level 1.4 mmol/L (0.4-2.0) Calcium Level 9.3 mg/dL (8.5-10.1) Phosphorus Level 1.8 mg/dL (2.6-4.7) Laboratory Tests Test 04/03/21 16:15 04/03/21 16:27 04/03/21 16:54 04/03/21 18:55 Urine Collection Type Unknown Urine Color Yellow Urine Clarity Cloudy Urine pH 5.5 (<5.0-8.0) Urine Specific [place] 1.025 (1.000-1.030) Urine Protein >=300 mg/dL (NEG-TRACE) Urine Glucose (UA) >=1000 mg/dL (NEG) Urine Ketones (Stick) >=80 mg/dL (NEG) Urine Blood Large (NEG) Urine Nitrite Negative (NEG) Urine Bilirubin Negative (NEG) Urine Urobilinogen Dipstick 0.2 mg/dL (0.2 mg/dL) Urine Leukocyte Esterase Small (NEG) Urine RBC Tntc /HPF (0-2) Urine WBC 20-40 /HPF (0-4) Urine Squamous Epithelial Cells Mod /LPF Urine Bacteria Moderate /HPF (0-FEW) Urine Hyaline Casts Moderate /HPF Urine Mucus Mod /LPF Urine Opiates Screen Neg (NEG) Urine Methadone Screen Neg (NEG) Urine Barbiturates Neg (NEG) Urine Phencyclidine Screen Neg (NEG) Urine Amphetamine/Methamphetamine Neg (NEG) Urine Benzodiazepines Screen Neg (NEG) Urine Cocaine Screen Neg (NEG) Urine Cannabinoids Screen Pos (NEG) Urine Ethyl Alcohol Neg (NEG) Bedside Urine HCG, Qualitative Hcg negative (Negative) White Blood Count 27.3 x10^3/uL (4.0-11.0) Red Blood Count 5.22 x10^6/uL (3.50-5.40) Hemoglobin 15.7 g/dL (12.0-15.5) Hematocrit 48.4 % (36.0-47.0) Mean Corpuscular Volume 93 fL (79-100) Mean Corpuscular Hemoglobin 30 pg (25-35) Mean Corpuscular Hemoglobin Concent 33 g/dL (31-37) Red Cell Distribution Width 13.2 % (11.5-14.5) Platelet Count 456 x10^3/uL (140-400) Neutrophils (%) (Auto) 84 % (31-73) Lymphocytes (%) (Auto) 5 % (24-48) Monocytes (%) (Auto) 10 % (0-9) Eosinophils (%) (Auto) 0 % (0-3) Basophils (%) (Auto) 1 % (0-3) Neutrophils # (Auto) 22.9 x10^3/uL (1.8-7.7) Lymphocytes # (Auto) 1.4 x10^3/uL (1.0-4.8) Monocytes # (Auto) 2.7 x10^3/uL (0.0-1.1) Eosinophils # (Auto) 0.0 x10^3/uL (0.0-0.7) Basophils # (Auto) 0.3 x10^3/uL (0.0-0.2) Segmented Neutrophils % 78 % (35-66) Band Neutrophils % 9 % (0-9) Lymphocytes % 7 % (24-48) Monocytes % 6 % (0-10) Platelet Estimate Increased (ADEQUATE) Sodium Level 130 mmol/L (136-145) Potassium Level 5.2 mmol/L (3.5-5.1) Chloride Level 94 mmol/L (98-107) Carbon Dioxide Level 5 mmol/L (21-32) Anion Gap 31 (6-14) Blood Urea Nitrogen 13 mg/dL (7-20) Creatinine 1.5 mg/dL (0.6-1.0) Estimated GFR (Cockcroft-Gault) 37.6 BUN/Creatinine Ratio 9 (6-20) Glucose Level 467 mg/dL (70-99) Calcium Level 9.9 mg/dL (8.5-10.1) Magnesium Level 1.9 mg/dL (1.8-2.4) Total Bilirubin 0.4 mg/dL (0.2-1.0) Aspartate Amino Transf (AST/SGOT) 9 U/L (15-37) Alanine Aminotransferase (ALT/SGPT) 10 U/L (14-59) Alkaline Phosphatase 140 U/L (46-116) Total Protein 8.8 g/dL (6.4-8.2) Albumin 3.6 g/dL (3.4-5.0) Albumin/Globulin Ratio 0.7 (1.0-1.7) Lipase 64 U/L (73-393) Ethyl Alcohol Level < 10 mg/dL (0-10) Lactic Acid Level 2.7 mmol/L (0.4-2.0) Test 04/03/21 20:50 04/03/21 21:55 04/03/21 22:30 04/03/21 23:42 Glucose (Fingerstick) 437 mg/dL (70-99) 404 mg/dL (70-99) 330 mg/dL (70-99) Lactic Acid Level 3.5 mmol/L (0.4-2.0) SARS-CoV-2 Antigen (Rapid) Negative (NEGATIVE) Test 04/04/21 01:04 04/04/21 02:14 04/04/21 03:24 04/04/21 04:41 Glucose (Fingerstick) 267 mg/dL (70-99) 186 mg/dL (70-99) 154 mg/dL (70-99) 151 mg/dL (70-99) Test 04/04/21 05:35 04/04/21 05:50 04/04/21 07:38 04/04/21 09:34 Glucose (Fingerstick) 152 mg/dL (70-99) 158 mg/dL (70-99) 155 mg/dL (70-99) White Blood Count 21.2 x10^3/uL (4.0-11.0) Red Blood Count 4.75 x10^6/uL (3.50-5.40) Hemoglobin 14.7 g/dL (12.0-15.5) Hematocrit 42.7 % (36.0-47.0) Mean Corpuscular Volume 90 fL (79-100) Mean Corpuscular Hemoglobin 31 pg (25-35) Mean Corpuscular Hemoglobin Concent 34 g/dL (31-37) Red Cell Distribution Width 12.8 % (11.5-14.5) Platelet Count 359 x10^3/uL (140-400) Neutrophils (%) (Auto) 81 % (31-73) Lymphocytes (%) (Auto) 6 % (24-48) Monocytes (%) (Auto) 12 % (0-9) Eosinophils (%) (Auto) 0 % (0-3) Basophils (%) (Auto) 0 % (0-3) Neutrophils # (Auto) 17.2 x10^3/uL (1.8-7.7) Lymphocytes # (Auto) 1.3 x10^3/uL (1.0-4.8) Monocytes # (Auto) 2.6 x10^3/uL (0.0-1.1) Eosinophils # (Auto) 0.0 x10^3/uL (0.0-0.7) Basophils # (Auto) 0.1 x10^3/uL (0.0-0.2) Sodium Level 138 mmol/L (136-145) Potassium Level 3.7 mmol/L (3.5-5.1) Chloride Level 107 mmol/L (98-107) Carbon Dioxide Level 14 mmol/L (21-32) Anion Gap 17 (6-14) Blood Urea Nitrogen 17 mg/dL (7-20) Creatinine 1.2 mg/dL (0.6-1.0) Estimated GFR (Cockcroft-Gault) 48.6 Glucose Level 133 mg/dL (70-99) Lactic Acid Level 1.4 mmol/L (0.4-2.0) Calcium Level 9.3 mg/dL (8.5-10.1) Phosphorus Level 1.8 mg/dL (2.6-4.7) Medications Current Medications Sodium Chloride 1,000 ml @ 1,000 mls/hr 1X ONCE IV Last administered on 04/03/21at 17:01; Start 04/03/21 at 16:30; Stop 04/03/21 at 17:29; Status DC Morphine Sulfate (Morphine Sulfate) 4 mg PRN Q15MIN PRN IV/SQ PAIN GREATER THAN 3/10 Last administered on 04/04/21at 08:24; Start 04/03/21 at 16:30; Stop 04/04/21 at 16:29 Ondansetron HCl (Zofran) 4 mg 1X ONCE IVP Last administered on 04/03/21at 17:00; Start 04/03/21 at 16:30; Stop 04/03/21 at 16:37; Status DC Sodium Chloride 1,000 ml @ 1,000 mls/hr 1X ONCE IV Last administered on 04/03/21at 19:37; Start 04/03/21 at 17:30; Stop 04/03/21 at 18:29; Status DC Levofloxacin/ Dextrose 100 ml @ 100 mls/hr 1X ONCE IV Last administered on 04/03/21at 19:22; Start 04/03/21 at 18:00; Stop 04/03/21 at 18:59; Status DC Sodium Chloride 1,000 ml @ 150 mls/hr CONT PRN IV SEE I/O RECORD Last administered on 04/04/21at 05:44; Start 04/03/21 at 19:00 Sodium Chloride 1,000 ml @ 500 mls/hr Q2H IV Last administered on 04/03/21at 21:13; Start 04/03/21 at 19:00; Stop 04/03/21 at 20:59; Status DC Insulin Human Regular 100 unit/ Sodium Chloride 101 ml @ 0 mls/hr CONT PRN PRN IV PER PROTOCOL Last administered on 04/04/21at 09:42; Start 04/03/21 at 19:00 Potassium Chloride/Water 100 ml @ 100 mls/hr PRN Q1HR PRN IV SEE COMMENTS; Start 04/03/21 at 19:00 Potassium Chloride/Water 100 ml @ 100 mls/hr PRN Q1HR PRN IV SEE COMMENTS; Start 04/03/21 at 19:00 Potassium Chloride/Water 100 ml @ 100 mls/hr PRN Q1HR PRN IV SEE COMMENTS; Start 04/03/21 at 19:00 Insulin Human Regular 100 ml @ 9.77 mls/hr 1X ONCE IV Last administered on 04/03/21at 21:11; Start 04/03/21 at 20:15; Stop 04/03/21 at 20:16; Status DC Ondansetron HCl (Zofran) 4 mg PRN Q8HRS PRN IVP NAUSEA/VOMITING; Start 04/03/21 at 21:30; Stop 04/04/21 at 21:29 Morphine Sulfate (Morphine Sulfate) 4 mg PRN Q2HR PRN IVP PAIN Last administered on 04/04/21at 02:10; Start 04/03/21 at 21:30; Stop 04/04/21 at 21:29 Tamsulosin HCl (Flomax) 0.4 mg DAILY PO ; Start 04/04/21 at 09:00 Hydralazine HCl (Apresoline Inj) 10 mg PRN Q4HRS PRN IVP ELEVATED BP, SEE COMMENTS; Start 04/03/21 at 23:00 Fentanyl Citrate (Fentanyl 2ml Vial) 25 mcg PRN Q3HRS PRN IVP SEVERE PAIN 7-10; Start 04/03/21 at 23:00 Olanzapine (ZyPREXA ZYDIS) 5 mg PRN BID PRN PO ANXIETY / AGITATION; Start 04/03/21 at 23:00 Ceftriaxone Sodium (Rocephin) 2 gm Q24H IVP Last administered on 04/04/21at 00:18; Start 04/03/21 at 23:15 Active Scripts Active Reported [Delta 8] [Cbd] Vitals/I & O Vital Sign - Last 24 Hours 04/03/21 04/03/21 04/03/21 04/03/21 16:35 17:01 17:30 18:30 Temp 97.9 97.9 Pulse 110 104 106 Resp 24 22 20 B/P (MAP) 144/82 155/80 (105) 143/75 (97) Pulse Ox 100 100 99 100 O2 Delivery Room Air Room Air Room Air Room Air 04/03/21 04/03/21 04/03/21 04/03/21 19:14 19:22 20:15 23:00 Temp 98.1 98.1 Pulse 104 104 97 Resp 20 18 B/P (MAP) 146/79 (101) 149/78 (101) 125/77 (93) Pulse Ox 100 99 99 100 O2 Delivery Room Air Room Air Room Air Room Air 04/04/21 04/04/21 04/04/21 04/04/21 00:12 02:10 03:12 07:00 Temp 99.0 98.9 99.0 98.9 Pulse 101 99 Resp 17 18 B/P (MAP) 109/70 (83) 117/65 (82) Pulse Ox 100 99 O2 Delivery Room Air Room Air Room Air 04/04/21 08:24 Resp 19 Pulse Ox 93 O2 Delivery Room Air Intake and Output 04/03/21 04/03/21 04/04/21 15:00 23:00 07:00 Intake Total 1100 ml 1000 ml Output Total 75 ml Balance 1100 ml 925 ml Justicifation of Admission Dx: Justifications for Admission: Justification of Admission Dx: Yes Sepsis: Infection KO ARCHER MD Apr 04, 2021 09:51
[2021-04-04 11:00] VITALS: BP 110/66
--- NOTE | 2021-04-04 11:49 | NUR ---
SS following for discharge planning. SS reviewed pt chart and discussed with pt RN. Pt is from home with spouse and is currently on room air. COVID19 negative. Pt on IV Rocephin. ID consulted. Self pay. SS will continue to follow for discharge planning.
[2021-04-04] MEDS: TAMSULOSIN 0.4 MG CAP.ER.24H. PO SCH (13:01)
[2021-04-04 15:00] VITALS: BP 114/69
[2021-04-04] MEDS ORDERED: DEXTROSE 50% 25 GM / 50ML DISP.SYRIN. IV PRN (16:00)
[2021-04-04] MEDS: INSULIN LISPRO 300 UNITS/3 ML VIAL. SQ SCH (17:00)
[2021-04-04] MEDS: fentaNYL PF VIAL 100 MCG/2 ML VIAL IVP PRN (17:59)
[2021-04-04 19:00] VITALS: BP 106/62
[2021-04-04 22:42] VITALS: BP 109/68
[2021-04-05] MEDS: cefTRIAXone IV Push 2 GM VIAL. IVP SCH ×2 (01:00→23:57)
[2021-04-05] MEDS: fentaNYL PF VIAL 100 MCG/2 ML VIAL IVP PRN ×5 (01:23→22:16)
[2021-04-05 03:00] VITALS: BP 115/62
[2021-04-05 07:00] VITALS: BP 112/65
[2021-04-05 07:28] LABS: BASO # 0.1 x10^3/uL (0.0-0.2); BASO % 1 % (0-3); EOS % 0 % (0-3); HEMATOCRIT 42.2 % (36.0-47.0); HEMOGLOBIN 13.6 g/dL (12.0-15.5); LYMPH # 1.1 x10^3/uL (1.0-4.8); LYMPH % 5 % (24-48); MEAN CORPUSCULAR HEMOGLOBIN 30 pg (25-35); MEAN CORPUSCULAR HGB CONC 32 g/dL (31-37); MEAN CORPUSCULAR VOLUME 93 fL (79-100); MONO # 1.8 x10^3/uL (0.0-1.1); MONO % 9 % (0-9); NEUT # 18.1 x10^3/uL (1.8-7.7); NEUT % 85 % (31-73); PLATELET COUNT 354 x10^3/uL (140-400); RED BLOOD COUNT 4.54 x10^6/uL (3.50-5.40); RED CELL DISTRIBUTION WIDTH 13.8 % (11.5-14.5); WHITE BLOOD COUNT 21.2 x10^3/uL (4.0-11.0)
[2021-04-05 08:18] LABS: ALBUMIN 2.5 g/dL (3.4-5.0); ALBUMIN/GLOBULIN RATIO 0.6 (1.0-1.7); CALCIUM 9.2 mg/dL (8.5-10.1); POTASSIUM 4.2 mmol/L (3.5-5.1); TOTAL BILIRUBIN 0.2 mg/dL (0.2-1.0)
[2021-04-05] MEDS: INSULIN LISPRO 300 UNITS/3 ML VIAL. SQ SCH ×3 (09:24→17:00)
[2021-04-05] MEDS ORDERED: ONDANSETRON PF 4 MG/2 ML VIAL. IVP PRN (10:15)
[2021-04-05] MEDS ORDERED: INSULIN REGULAR VIAL 100 UNIT in IV NORMAL SALINE 100ML 100 ML IV PRN (10:30)
--- NOTE | 2021-04-05 10:38 | PDOC ---
PROGRESS NOTES Date of Service: DATE: 04/05/21 TIME: 10:37 Chief Complaint Chief Complaint Images Images CT ABDOMEN PELVIS WO CONTRAST Mild prominence of the wall the distal esophagus which is not very distended. Abdominal aorta is not aneurysmal. Suspected small fat-containing inguinal hernia. Low-density within the liver at the falciform ligament commonly from focal fat. No peripancreatic fluid collection. The gallbladder is distended at time of exam. Splenic calcified granuloma. Left-sided moderate hydronephrosis and hydroureter with perinephric edema. There is a suspected 3 mm high density focus within the urinary bladder. Urinary bladder is decompressed with prominence the wall and some haziness of the adjacent fat. Nonobstructive right renal stone without right-sided hydronephrosis. No periappendiceal inflammatory changes. No dilated loops of bowel to suggest obstruction. Tiny fat-containing umbilical hernia. Degenerative changes the spine. Sclerosis at sacroiliac joints which can be seen with chronic sacroiliitis or degenerative changes. There is a similar appearance at the pubic symphysis. IMPRESSION: * Left-sided perinephric and periureteral edema with hydronephrosis and hydroureter. This could be either from a recently passed ureter stone or infectious in nature from urinary tract infection. * Wall thickening of the urinary bladder with adjacent edema to the fat. Causes such as cystitis are within the differential. * Nonobstructive right renal stone. * Mild prominence the wall the distal esophagus which could be from lack of distention but would correlate with symptoms given that a pathologic cause such as esophagitis is not excluded. Esophageal mass would be less likely in a patient of this age unless they have risk factors. VTE Prophylaxis Ordered VTE Prophylaxis Devices: No VTE Pharmacological Prophylaxi: Yes Assessment/Plan Assessment/Plan A/P: Left pyelonephritis - likely due to passed kidney stone. IV levaquin given PCN allergy with little likelihood of cephalosporin cross allergy will change to rocephin. IVF as well Sepsis - given empiric IVF, f/u urine and blood cultures, empiric levaquin for pyelo DKA - IVF insulin and fluids, npo except for water, nausea control. Can take PO and lantus when gap closes ALISHA - multifactorial, vasomotor nephropathy from dehydration 2/2 DKA and possibly some mild obstruction cleared on left Neuropathy - likely diabetic in nature given history of extremely poor control Cannabinoid positive - counseled on the safety and legality Hyponatremia - nutritional and DKA related, will monitor FEN - NPO PPX - heparin FULL CODE Dispo - inpatient RESTART INSULIN DRIP PROTOCOL 04-05 33 MIN CC TIME Justifications for Admission Justifications for Admission Other Justification History of Present Illness History of Present Illness dentification/Chief Complaint Chief Complaint Abdominal pain Source Source: Caregiver, Chart review, Patient History of Present Illness History of Present Illness Ms Preciado is a 45yo female with PMHx DM2, nephrolithiasis, neuropathy who presents to the ED today complaining of dysuria for 1 week and severe bilateral flank pain, symptoms began 3 days ago. She is also complaining of nausea, vomiting which began today, 04/03/2021. Denies any fever, but does have chills. Significant other bedside notes that she has had episodic confusion prior to moving from [place] and has been to neurology initially though very early onset dementia. Of note her hemoglobin A1c has never been less than 14. Since we will continue this for years ago she was treated with nausea and vomiting that started 1 month woman as well as Trulicity. Struggled with follow-up and was going to the [facility] and stopped since the COVID-19 pandemic and has not seen a physician in the past year and half. She has never been hospitalized previously but has had outpatient treatment for n ephrolithiasis with ESWL. WBC 27.3, Hb 15.7, platelets 156, NA 130, K4.3, chloride 94 HCO3 5 BUN 31, CR 1.5, BUN 13, glucose 467, magnesium 1.9, calcium 9.9, lactic acid 2.7, AST 9, bilirubin 0.4, ALT 10, alkaline phos is 140, albumin 3.6. UDS positive for cannabinoids. UA with large protein large glucose positive ketones positive blood positive leukocyte esterase moderate bacteria negative urine hCG. CT abdomen pelvis with left-sided perinephric and periureteral edema with hydronephrosis and hydroureter, wall thickening of the urinary bladder with adjacent edema to the fat and nonobstructive right renal stone. Given IVF, IV levofloxacin, IV insulin and admitted for further care Past Medical History Cardiovascular: HTN CENTRAL NERVOUS SYSTEM: Periperal neuropathy Renal/: Other (Nephrolithiasis) Endocrine: Diabetes Past Surgical History Past Surgical History: Other (D&C, ESWL) Family History Family History: Diabetes, High Cholestrol, Hypertension Social History Smoke: No ALCOHOL: none Drugs: Marijuana Current Medications Current Medications Current Medications Sodium Chloride 1,000 ml @ 1,000 mls/hr 1X ONCE IV Last administered on 04/03/21at 17:01; Start 04/03/21 at 16:30; Stop 04/03/21 at 17:29; Status DC Morphine Sulfate (Morphine Sulfate) 4 mg PRN Q15MIN PRN IV/SQ PAIN GREATER THAN 3/10 Last administered on 04/03/21at 17:01; Start 04/03/21 at 16:30; Stop 04/04/21 at 16:29 Ondansetron HCl (Zofran) 4 mg 1X ONCE IVP Last administered on 04/03/21at 17:00; Start 04/03/21 at 16:30; Stop 04/03/21 at 16:37; Status DC Sodium Chloride 1,000 ml @ 1,000 mls/hr 1X ONCE IV ; Start 04/03/21 at 17:30; Stop 04/03/21 at 18:29; Status DC Levofloxacin/ Dextrose 100 ml @ 100 mls/hr 1X ONCE IV ; Start 04/03/21 at 18:00; Stop 04/03/21 at 18:59 Allergies Allergies: Coded Allergies: naproxen (Verified Allergy, Intermediate, 04/03/21) GIB Penicillins (Verified Allergy, Unknown, 04/03/21) ROS General: YES: Chills, Night Sweats, Fatigue, Malaise; No: Appetite, Other PSYCHOLOGICAL ROS: YES: Anxiety, Disorientation, Irritablity, Memory difficulties, Mood Swings, Obsessive thoughts; No: Behavioral Disorder, Concentration difficultie, Decreased libido, Depression, Hallucinations, Hostility, Physical abuse, Sexual abuse, Sleep disturbances, Suicidal ideation, Other Eyes: Yes Blurry vision; No Decreased vision, No Double vision, No Dry eyes, No Excessive tearing, No Eye Pain, No Itchy Eyes, No Loss of vision, No Photophobia, No Scotomata, No Uses contacts, No Uses glasses, No Other HEENT: No: Heacaches, Visual Changes, Hearing change, Nasal congestion, Nasal discharge, Oral lesions, Sinus pain, Sore Throat, Epistaxis, Sneezing, Snoring, Tinnitus, Vertigo, Vocal changes, Other ALLERGY AND IMMUNOLOGY: No: Hives, Insect Bite Sensitivity, Itchy/Watery Eyes, Nasal Congestion, Post Nasal Drip, Seasonal Allergies, Other Hematological and Lymphatic: No: Bleeding Problems, Blood Clots, Blood Transfusions, Brusing, Night Sweats, Pallor, Swollen Lymph Nodes, Other ENDOCRINE: No: Breast Changes, Galactorrhea, Hair Pattern Changes, Hot Flashes, Malaise/lethargy, Mood Swings, Palpitations, Polydipsia/polyuria, Skin Changes, Temperature Intolerance, Unexpected Weight Changes, Other Breast: No New/Changing Breast Lumps, No Nipple changes, No Nipple discharge, No Other Respiratory: No: Cough, Hemoptysis, Orthopnea, Pleuritic Pain, Shortness of breath, SOB with excertion, Sputum Changes, Stridor, Tachypnea, Wheezing, Other Cardiovascular: No Chest Pain, No Palpitations, No Orthopnea, No Paroxysmal Noc. Dyspnea, No Edema, No Lt Headedness, No Other Gastrointestinal: Yes Nausea, Yes Abdominal Pain; No Vomiting, No Diarrhea, No Constipation, No Melena, No Hematochezia, No Other Genitourinary: YES Dysuria, YES Frequency, YES Retention, YES Urgency, YES Pain , YES Flank Pain; No Incontinence, No Hematuria, No Discharge, No Other, No , No , No , No , No , No , No Musculoskeletal: No Gait Disturbance, No Joint Pain, No Joint Stiffness, No Joint Swelling, No Muscle Pain, No Muscular Weakness, No Pain In:, No Swelling In:, No Other Neurological: Yes Memory Loss, Yes Numbness/Tingling; No Behavorial Changes, No Bowel/Bladder ControlChng, No Confusion, No Dizziness, No Gait Disturbance, No Headaches, No Impaired Coord/balance, No Seizures, No Speech Problems, No Tremors, No Visual Changes, No Weakness, No Other Skin: No Dry Skin, No Eczema, No Hair Changes, No Lumps, No Mole Changes, No Mottling, No Nail Changes, No Pruritus, No Rash, No Skin Lesion Changes, No Othe r, No Acne 9- Left pyelonephritis - passed kidney stone. IV levaquin given PCN allergy with little likelihood of cephalosporin cross allergy will change to rocephin. IVF as well Left-sided moderate hydronephrosis and hydroureter with perinephric edema. There is a suspected 3 mm high density focus within the urinary bladder. Urinary bladder is decompressed with prominence the wall and some haziness of the adjacent fat. Nonobstructive right renal stone without right-sided hydronephrosis. Sepsis - given empiric IVF, f/u urine and blood cultures, empiric levaquin for pyelo DKA - IVF insulin and fluids, npo except for water, nausea control. Can take PO and lantus when gap closes ALISHA - multifactorial, vasomotor nephropathy from dehydration 2/2 DKA and possib ly some mild obstruction cleared on left Neuropathy - likely diabetic in nature given history of extremely poor control Cannabinoid positive - counseled on the safety and legality Hyponatremia - nutritional and DKA related D/W RN ID CONSULT 37 min pt exam, chart review, > 50% of time spent with exam, chart review, pt care coordination 9-03 Mild prominence the wall the distal esophagus which could be from lack of distention but would correlate with symptoms given that a pathologic cause such as esophagitis Left pyelonephritis - passed kidney stone. IV levaquin given PCN allergy with little likelihood of cephalosporin cross allergy will change to rocephin. IVF as well Left-sided moderate hydronephrosis and hydroureter with perinephric edema. There is a suspected 3 mm high density focus within the urinary bladder. Urinary bladder is decompressed with prominence the wall and some haziness of the adjacent fat. Nonobstructive right renal stone without right-sided hydronephrosis. Sepsis - given empiric IVF, f/u urine and blood cultures, empiric levaquin for pyelo DKA - IVF insulin and fluids, npo except for water, nausea control. Can take PO and lantus when gap closes ALISHA - multifactorial, vasomotor nephropathy from dehydration 2/2 DKA and possibly some mild obstruction cleared on left Neuropathy - likely diabetic in nature given history of extremely poor control Cannabinoid positive - counseled on the safety and legality Hyponatremia - nutritional and DKA related D/W RN ID CONSULT NEPHROLOGY CONSULT 36 min pt exam, chart review, > 50% of time spent with exam, chart review, pt care coordination Vitals Vitals Vital Signs Date Time Temp Pulse Resp B/P (MAP) Pulse Ox O2 Delivery O2 Flow Rate FiO2 04/05/21 07:00 98.1 98 18 112/65 (81) 100 Room Air 98.1 Physical Exam Physical Exam Constitutional: Well developed, well nourished, no acute distress, non-toxic appearance. [] HENT: Normocephalic, atraumatic, bilateral external ears normal, oropharynx moist, no oral exudates, nose normal. [] Eyes: PERRLA, EOMI, conjunctiva normal, no discharge. [] Neck: Normal range of motion, no tenderness, supple, no stridor. [] Cardiovascular:Heart rate regular rhythm, no murmur [] Lungs & Thorax: Bilateral breath sounds clear to auscultation [] Abdomen: Bowel sounds normal, soft, no tenderness, no masses, no pulsatile masses. [] Skin: Warm, dry, no erythema, no rash. [] Back: No tenderness, moderate bilateral CVA tenderness. [] Extremities: No tenderness, no cyanosis, no clubbing, ROM intact, no edema. [] Neurologic: Alert and oriented X 3, normal motor function, normal sensory function, no focal deficits noted. [] Psychologic: Flat affec General: Alert, Oriented X3, Cooperative, No acute distress Heart: Regular rate Abdomen: Normal bowel sounds, Soft Extremities: No cyanosis, No edema, Normal pulses Labs LABS PATIENT: CATHLEEN PRECIADO ACCOUNT: [id number] : 1975 LOCATION: ER AGE: 45 SEX: F EXAM STATUS: REG ER ORD. PHYSICIAN: GABRIELA SANTOYO APRN REASON: flank pain hx of kidney stones PROCEDURE: CT ABDOMEN PELVIS WO CONTRAST INDICATION: Reason: flank pain hx of kidney stones / Spl. Instructions: / History: . COMPARISON: None. TECHNIQUE: Axial CT images obtained through the abdomen and pelvis without contrast. One or more of the following individualized dose reduction techniques were utilized for this examination: 1. Automated exposure control; 2. Adjustment of the mA and/or kV according to patient size; 3. Use of iterative reconstruction technique. FINDINGS: Mild prominence of the wall the distal esophagus which is not very distended. Abdominal aorta is not aneurysmal. Suspected small fat-containing inguinal hernia. Low-density within the liver at the falciform ligament commonly from focal fat. No peripancreatic fluid collection. The gallbladder is distended at time of exam. Splenic calcified granuloma. Left-sided moderate hydronephrosis and hydroureter with perinephric edema. There is a suspected 3 mm high density focus within the urinary bladder. Urinary bladder is decompressed with prominence the wall and some haziness of the adjacent fat. Nonobstructive right renal stone without right-sided hydronephrosis. No periappendiceal inflammatory changes. No dilated loops of bowel to suggest obstruction. Tiny fat-containing umbilical hernia. Degenerative changes the spine. Sclerosis at sacroiliac joints which can be seen with chronic sacroiliitis or degenerative changes. There is a similar appearance at the pubic symphysis. IMPRESSION: * Left-sided perinephric and periureteral edema with hydronephrosis and hydroureter. This could be either from a recently passed ureter stone or infectious in nature from urinary tract infection. * Wall thickening of the urinary bladder with adjacent edema to the fat. Causes such as cystitis are within the differential. * Nonobstructive right renal stone. * Mild prominence the wall the distal esophagus which could be from lack of distention but would correlate with symptoms given that a pathologic cause such as esophagitis is not excluded. Esophageal mass would be less likely in a patient of this age unless they have risk factors. Electronically signed by: Basia Sahni MD (04/03/2021 5:40 PM) [id number] DICTATED and SIGNED BY: BASIA SAHNI MD DATE: 04/03/21 [id number] Laboratory Tests Test 04/04/21 10:39 04/04/21 11:08 04/04/21 13:00 04/04/21 14:55 Glucose (Fingerstick) 165 mg/dL (70-99) 170 mg/dL (70-99) 115 mg/dL (70-99) 87 mg/dL (70-99) Test 04/04/21 16:47 04/04/21 19:38 04/05/21 06:30 04/05/21 08:28 Glucose (Fingerstick) 100 mg/dL (70-99) 189 mg/dL (70-99) 270 mg/dL (70-99) White Blood Count 21.2 x10^3/uL (4.0-11.0) Red Blood Count 4.54 x10^6/uL (3.50-5.40) Hemoglobin 13.6 g/dL (12.0-15.5) Hematocrit 42.2 % (36.0-47.0) Mean Corpuscular Volume 93 fL (79-100) Mean Corpuscular Hemoglobin 30 pg (25-35) Mean Corpuscular Hemoglobin Concent 32 g/dL (31-37) Red Cell Distribution Width 13.8 % (11.5-14.5) Platelet Count 354 x10^3/uL (140-400) Neutrophils (%) (Auto) 85 % (31-73) Lymphocytes (%) (Auto) 5 % (24-48) Monocytes (%) (Auto) 9 % (0-9) Eosinophils (%) (Auto) 0 % (0-3) Basophils (%) (Auto) 1 % (0-3) Neutrophils # (Auto) 18.1 x10^3/uL (1.8-7.7) Lymphocytes # (Auto) 1.1 x10^3/uL (1.0-4.8) Monocytes # (Auto) 1.8 x10^3/uL (0.0-1.1) Eosinophils # (Auto) 0.0 x10^3/uL (0.0-0.7) Basophils # (Auto) 0.1 x10^3/uL (0.0-0.2) Sodium Level 135 mmol/L (136-145) Potassium Level 4.2 mmol/L (3.5-5.1) Chloride Level 104 mmol/L (98-107) Carbon Dioxide Level 7 mmol/L (21-32) Anion Gap 24 (6-14) Blood Urea Nitrogen 21 mg/dL (7-20) Creatinine 1.0 mg/dL (0.6-1.0) Estimated GFR (Cockcroft-Gault) 60.0 BUN/Creatinine Ratio 21 (6-20) Glucose Level 258 mg/dL (70-99) Calcium Level 9.2 mg/dL (8.5-10.1) Phosphorus Level 2.9 mg/dL (2.6-4.7) Total Bilirubin 0.2 mg/dL (0.2-1.0) Aspartate Amino Transf (AST/SGOT) 17 U/L (15-37) Alanine Aminotransferase (ALT/SGPT) 17 U/L (14-59) Alkaline Phosphatase 122 U/L (46-116) C-Reactive Protein, Quantitative 149.0 mg/L (0-3.3) Total Protein 7.0 g/dL (6.4-8.2) Albumin 2.5 g/dL (3.4-5.0) Albumin/Globulin Ratio 0.6 (1.0-1.7) Assessment and Plan Assessmemt and Plan Problems Medical Problems: (1) Acute kidney injury Status: Acute (2) Acute pyelonephritis Status: Acute (3) DKA (diabetic ketoacidosis) Status: Acute (4) Sepsis Status: Acute Comment Review of Relevant I have reviewed the following items hayde (where applicable) has been applied. Labs Laboratory Tests Test 04/03/21 16:15 04/03/21 16:27 04/03/21 16:54 04/03/21 18:55 Urine Collection Type Unknown Urine Color Yellow Urine Clarity Cloudy Urine pH 5.5 (<5.0-8.0) Urine Specific [place] 1.025 (1.000-1.030) Urine Protein >=300 mg/dL (NEG-TRACE) Urine Glucose (UA) >=1000 mg/dL (NEG) Urine Ketones (Stick) >=80 mg/dL (NEG) Urine Blood Large (NEG) Urine Nitrite Negative (NEG) Urine Bilirubin Negative (NEG) Urine Urobilinogen Dipstick 0.2 mg/dL (0.2 mg/dL) Urine Leukocyte Esterase Small (NEG) Urine RBC Tntc /HPF (0-2) Urine WBC 20-40 /HPF (0-4) Urine Squamous Epithelial Cells Mod /LPF Urine Bacteria Moderate /HPF (0-FEW) Urine Hyaline Casts Moderate /HPF Urine Mucus Mod /LPF Urine Opiates Screen Neg (NEG) Urine Methadone Screen Neg (NEG) Urine Barbiturates Neg (NEG) Urine Phencyclidine Screen Neg (NEG) Urine Amphetamine/Methamphetamine Neg (NEG) Urine Benzodiazepines Screen Neg (NEG) Urine Cocaine Screen Neg (NEG) Urine Cannabinoids Screen Pos (NEG) Urine Ethyl Alcohol Neg (NEG) Bedside Urine HCG, Qualitative Hcg negative (Negative) White Blood Count 27.3 x10^3/uL (4.0-11.0) Red Blood Count 5.22 x10^6/uL (3.50-5.40) Hemoglobin 15.7 g/dL (12.0-15.5) Hematocrit 48.4 % (36.0-47.0) Mean Corpuscular Volume 93 fL (79-100) Mean Corpuscular Hemoglobin 30 pg (25-35) Mean Corpuscular Hemoglobin Concent 33 g/dL (31-37) Red Cell Distribution Width 13.2 % (11.5-14.5) Platelet Count 456 x10^3/uL (140-400) Neutrophils (%) (Auto) 84 % (31-73) Lymphocytes (%) (Auto) 5 % (24-48) Monocytes (%) (Auto) 10 % (0-9) Eosinophils (%) (Auto) 0 % (0-3) Basophils (%) (Auto) 1 % (0-3) Neutrophils # (Auto) 22.9 x10^3/uL (1.8-7.7) Lymphocytes # (Auto) 1.4 x10^3/uL (1.0-4.8) Monocytes # (Auto) 2.7 x10^3/uL (0.0-1.1) Eosinophils # (Auto) 0.0 x10^3/uL (0.0-0.7) Basophils # (Auto) 0.3 x10^3/uL (0.0-0.2) Segmented Neutrophils % 78 % (35-66) Band Neutrophils % 9 % (0-9) Lymphocytes % 7 % (24-48) Monocytes % 6 % (0-10) Platelet Estimate Increased (ADEQUATE) Sodium Level 130 mmol/L (136-145) Potassium Level 5.2 mmol/L (3.5-5.1) Chloride Level 94 mmol/L (98-107) Carbon Dioxide Level 5 mmol/L (21-32) Anion Gap 31 (6-14) Blood Urea Nitrogen 13 mg/dL (7-20) Creatinine 1.5 mg/dL (0.6-1.0) Estimated GFR (Cockcroft-Gault) 37.6 BUN/Creatinine Ratio 9 (6-20) Glucose Level 467 mg/dL (70-99) Calcium Level 9.9 mg/dL (8.5-10.1) Magnesium Level 1.9 mg/dL (1.8-2.4) Total Bilirubin 0.4 mg/dL (0.2-1.0) Aspartate Amino Transf (AST/SGOT) 9 U/L (15-37) Alanine Aminotransferase (ALT/SGPT) 10 U/L (14-59) Alkaline Phosphatase 140 U/L (46-116) Total Protein 8.8 g/dL (6.4-8.2) Albumin 3.6 g/dL (3.4-5.0) Albumin/Globulin Ratio 0.7 (1.0-1.7) Lipase 64 U/L (73-393) Ethyl Alcohol Level < 10 mg/dL (0-10) Lactic Acid Level 2.7 mmol/L (0.4-2.0) Test 04/03/21 20:50 04/03/21 21:55 04/03/21 22:30 04/03/21 23:42 Glucose (Fingerstick) 437 mg/dL (70-99) 404 mg/dL (70-99) 330 mg/dL (70-99) Lactic Acid Level 3.5 mmol/L (0.4-2.0) SARS-CoV-2 RNA (MARU) Negative (Negative) SARS-CoV-2 Antigen (Rapid) Negative (NEGATIVE) Test 04/04/21 01:04 04/04/21 02:14 04/04/21 03:24 04/04/21 04:41 Glucose (Fingerstick) 267 mg/dL (70-99) 186 mg/dL (70-99) 154 mg/dL (70-99) 151 mg/dL (70-99) Test 04/04/21 05:35 04/04/21 05:50 04/04/21 07:38 04/04/21 09:34 Glucose (Fingerstick) 152 mg/dL (70-99) 158 mg/dL (70-99) 155 mg/dL (70-99) White Blood Count 21.2 x10^3/uL (4.0-11.0) Red Blood Count 4.75 x10^6/uL (3.50-5.40) Hemoglobin 14.7 g/dL (12.0-15.5) Hematocrit 42.7 % (36.0-47.0) Mean Corpuscular Volume 90 fL (79-100) Mean Corpuscular Hemoglobin 31 pg (25-35) Mean Corpuscular Hemoglobin Concent 34 g/dL (31-37) Red Cell Distribution Width 12.8 % (11.5-14.5) Platelet Count 359 x10^3/uL (140-400) Neutrophils (%) (Auto) 81 % (31-73) Lymphocytes (%) (Auto) 6 % (24-48) Monocytes (%) (Auto) 12 % (0-9) Eosinophils (%) (Auto) 0 % (0-3) Basophils (%) (Auto) 0 % (0-3) Neutrophils # (Auto) 17.2 x10^3/uL (1.8-7.7) Lymphocytes # (Auto) 1.3 x10^3/uL (1.0-4.8) Monocytes # (Auto) 2.6 x10^3/uL (0.0-1.1) Eosinophils # (Auto) 0.0 x10^3/uL (0.0-0.7) Basophils # (Auto) 0.1 x10^3/uL (0.0-0.2) Sodium Level 138 mmol/L (136-145) Potassium Level 3.7 mmol/L (3.5-5.1) Chloride Level 107 mmol/L (98-107) Carbon Dioxide Level 14 mmol/L (21-32) Anion Gap 17 (6-14) Blood Urea Nitrogen 17 mg/dL (7-20) Creatinine 1.2 mg/dL (0.6-1.0) Estimated GFR (Cockcroft-Gault) 48.6 Glucose Level 133 mg/dL (70-99) Lactic Acid Level 1.4 mmol/L (0.4-2.0) Calcium Level 9.3 mg/dL (8.5-10.1) Phosphorus Level 1.8 mg/dL (2.6-4.7) Test 04/04/21 10:39 04/04/21 11:08 04/04/21 13:00 04/04/21 14:55 Glucose (Fingerstick) 165 mg/dL (70-99) 170 mg/dL (70-99) 115 mg/dL (70-99) 87 mg/dL (70-99) Test 04/04/21 16:47 04/04/21 19:38 9/3/21 06:30 04/05/21 08:28 Glucose (Fingerstick) 100 mg/dL (70-99) 189 mg/dL (70-99) 270 mg/dL (70-99) White Blood Count 21.2 x10^3/uL (4.0-11.0) Red Blood Count 4.54 x10^6/uL (3.50-5.40) Hemoglobin 13.6 g/dL (12.0-15.5) Hematocrit 42.2 % (36.0-47.0) Mean Corpuscular Volume 93 fL (79-100) Mean Corpuscular Hemoglobin 30 pg (25-35) Mean Corpuscular Hemoglobin Concent 32 g/dL (31-37) Red Cell Distribution Width 13.8 % (11.5-14.5) Platelet Count 354 x10^3/uL (140-400) Neutrophils (%) (Auto) 85 % (31-73) Lymphocytes (%) (Auto) 5 % (24-48) Monocytes (%) (Auto) 9 % (0-9) Eosinophils (%) (Auto) 0 % (0-3) Basophils (%) (Auto) 1 % (0-3) Neutrophils # (Auto) 18.1 x10^3/uL (1.8-7.7) Lymphocytes # (Auto) 1.1 x10^3/uL (1.0-4.8) Monocytes # (Auto) 1.8 x10^3/uL (0.0-1.1) Eosinophils # (Auto) 0.0 x10^3/uL (0.0-0.7) Basophils # (Auto) 0.1 x10^3/uL (0.0-0.2) Sodium Level 135 mmol/L (136-145) Potassium Level 4.2 mmol/L (3.5-5.1) Chloride Level 104 mmol/L (98-107) Carbon Dioxide Level 7 mmol/L (21-32) Anion Gap 24 (6-14) Blood Urea Nitrogen 21 mg/dL (7-20) Creatinine 1.0 mg/dL (0.6-1.0) Estimated GFR (Cockcroft-Gault) 60.0 BUN/Creatinine Ratio 21 (6-20) Glucose Level 258 mg/dL (70-99) Calcium Level 9.2 mg/dL (8.5-10.1) Phosphorus Level 2.9 mg/dL (2.6-4.7) Total Bilirubin 0.2 mg/dL (0.2-1.0) Aspartate Amino Transf (AST/SGOT) 17 U/L (15-37) Alanine Aminotransferase (ALT/SGPT) 17 U/L (14-59) Alkaline Phosphatase 122 U/L (46-116) C-Reactive Protein, Quantitative 149.0 mg/L (0-3.3) Total Protein 7.0 g/dL (6.4-8.2) Albumin 2.5 g/dL (3.4-5.0) Albumin/Globulin Ratio 0.6 (1.0-1.7) Laboratory Tests Test 04/04/21 10:39 04/04/21 11:08 04/04/21 13:00 04/04/21 14:55 Glucose (Fingerstick) 165 mg/dL (70-99) 170 mg/dL (70-99) 115 mg/dL (70-99) 87 mg/dL (70-99) Test 04/04/21 16:47 04/04/21 19:38 04/05/21 06:30 04/05/21 08:28 Glucose (Fingerstick) 100 mg/dL (70-99) 189 mg/dL (70-99) 270 mg/dL (70-99) White Blood Count 21.2 x10^3/uL (4.0-11.0) Red Blood Count 4.54 x10^6/uL (3.50-5.40) Hemoglobin 13.6 g/dL (12.0-15.5) Hematocrit 42.2 % (36.0-47.0) Mean Corpuscular Volume 93 fL (79-100) Mean Corpuscular Hemoglobin 30 pg (25-35) Mean Corpuscular Hemoglobin Concent 32 g/dL (31-37) Red Cell Distribution Width 13.8 % (11.5-14.5) Platelet Count 354 x10^3/uL (140-400) Neutrophils (%) (Auto) 85 % (31-73) Lymphocytes (%) (Auto) 5 % (24-48) Monocytes (%) (Auto) 9 % (0-9) Eosinophils (%) (Auto) 0 % (0-3) Basophils (%) (Auto) 1 % (0-3) Neutrophils # (Auto) 18.1 x10^3/uL (1.8-7.7) Lymphocytes # (Auto) 1.1 x10^3/uL (1.0-4.8) Monocytes # (Auto) 1.8 x10^3/uL (0.0-1.1) Eosinophils # (Auto) 0.0 x10^3/uL (0.0-0.7) Basophils # (Auto) 0.1 x10^3/uL (0.0-0.2) Sodium Level 135 mmol/L (136-145) Potassium Level 4.2 mmol/L (3.5-5.1) Chloride Level 104 mmol/L (98-107) Carbon Dioxide Level 7 mmol/L (21-32) Anion Gap 24 (6-14) Blood Urea Nitrogen 21 mg/dL (7-20) Creatinine 1.0 mg/dL (0.6-1.0) Estimated GFR (Cockcroft-Gault) 60.0 BUN/Creatinine Ratio 21 (6-20) Glucose Level 258 mg/dL (70-99) Calcium Level 9.2 mg/dL (8.5-10.1) Phosphorus Level 2.9 mg/dL (2.6-4.7) Total Bilirubin 0.2 mg/dL (0.2-1.0) Aspartate Amino Transf (AST/SGOT) 17 U/L (15-37) Alanine Aminotransferase (ALT/SGPT) 17 U/L (14-59) Alkaline Phosphatase 122 U/L (46-116) C-Reactive Protein, Quantitative 149.0 mg/L (0-3.3) Total Protein 7.0 g/dL (6.4-8.2) Albumin 2.5 g/dL (3.4-5.0) Albumin/Globulin Ratio 0.6 (1.0-1.7) Microbiology 04/03/21 Blood Culture - Preliminary, Resulted NO GROWTH AFTER 1 DAY Medications Current Medications Sodium Chloride 1,000 ml @ 1,000 mls/hr 1X ONCE IV Last administered on 04/03/21at 17:01; Start 04/03/21 at 16:30; Stop 04/03/21 at 17:29; Status DC Morphine Sulfate (Morphine Sulfate) 4 mg PRN Q15MIN PRN IV/SQ PAIN GREATER THAN 3/10 Last administered on 04/04/21at 08:24; Start 04/03/21 at 16:30; Stop 04/04/21 at 16:29; Status DC Ondansetron HCl (Zofran) 4 mg 1X ONCE IVP Last administered on 04/03/21at 17:00; Start 04/03/21 at 16:30; Stop 04/03/21 at 16:37; Status DC Sodium Chloride 1,000 ml @ 1,000 mls/hr 1X ONCE IV Last administered on 04/03/21at 19:37; Start 04/03/21 at 17:30; Stop 04/03/21 at 18:29; Status DC Levofloxacin/ Dextrose 100 ml @ 100 mls/hr 1X ONCE IV Last administered on 04/03/21at 19:22; Start 04/03/21 at 18:00; Stop 04/03/21 at 18:59; Status DC Sodium Chloride 1,000 ml @ 150 mls/hr CONT PRN IV SEE I/O RECORD Last administered on 04/04/21at 17:48; Start 04/03/21 at 19:00 Sodium Chloride 1,000 ml @ 500 mls/hr Q2H IV Last administered on 04/03/21at 21:13; Start 04/03/21 at 19:00; Stop 04/03/21 at 20:59; Status DC Insulin Human Regular 100 unit/ Sodium Chloride 101 ml @ 0 mls/hr CONT PRN PRN IV PER PROTOCOL Last administered on 04/04/21at 09:42; Start 04/03/21 at 19:00; Stop 04/04/21 at 15:54; Status DC Potassium Chloride/Water 100 ml @ 100 mls/hr PRN Q1HR PRN IV SEE COMMENTS; Start 04/03/21 at 19:00 Potassium Chloride/Water 100 ml @ 100 mls/hr PRN Q1HR PRN IV SEE COMMENTS; Start 04/03/21 at 19:00 Potassium Chloride/Water 100 ml @ 100 mls/hr PRN Q1HR PRN IV SEE COMMENTS; S tart 04/03/21 at 19:00 Insulin Human Regular 100 ml @ 9.77 mls/hr 1X ONCE IV Last administered on 04/03/21at 21:11; Start 04/03/21 at 20:15; Stop 04/03/21 at 20:16; Status DC Ondansetron HCl (Zofran) 4 mg PRN Q8HRS PRN IVP NAUSEA/VOMITING; Start 04/03/21 at 21:30; Stop 04/04/21 at 21:29; Status DC Morphine Sulfate (Morphine Sulfate) 4 mg PRN Q2HR PRN IVP PAIN Last administered on 04/04/21at 02:10; Start 04/03/21 at 21:30; Stop 04/04/21 at 21:29; Status DC Tamsulosin HCl (Flomax) 0.4 mg DAILY PO Last administered on 04/04/21at 13:01; Start 04/04/21 at 09:00 Hydralazine HCl (Apresoline Inj) 10 mg PRN Q4HRS PRN IVP ELEVATED BP, SEE COMMENTS; Start 04/03/21 at 23:00 Fentanyl Citrate (Fentanyl 2ml Vial) 25 mcg PRN Q3HRS PRN IVP SEVERE PAIN 7-10 Last administered on 04/05/21at 05:00; Start 04/03/21 at 23:00 Olanzapine (ZyPREXA ZYDIS) 5 mg PRN BID PRN PO ANXIETY / AGITATION; Start 04/03/21 at 23:00 Ceftriaxone Sodium (Rocephin) 2 gm Q24H IVP Last administered on 04/05/21at 01:00; Start 04/03/21 at 23:15 Insulin Human Lispro (HumaLOG) 0-7 UNITS TIDWMEALS SQ Last administered on 04/05/21at 09:24; Start 04/04/21 at 17:00 Dextrose (Dextrose 50%-Water Syringe) 12.5 gm PRN Q15MIN PRN IV SEE COMMENTS; Start 04/04/21 at 16:00 Insulin Glargine (Lantus Syringe) 10 unit QHS SQ ; Start 04/05/21 at 21:00 Ondansetron HCl (Zofran) 4 mg PRN Q4HRS PRN IVP NAUSEA/VOMITING; Start 04/05/21 at 10:15 Insulin Human Regular 100 unit/ Sodium Chloride 101 ml @ 0 mls/hr CONT PRN IV SEE I/O RECORD; Start 04/05/21 at 10:30 Active Scripts Active Reported [Delta 8] [Cbd] Vitals/I & O Vital Sign - Last 24 Hours 04/04/21 04/04/21 04/04/21 04/04/21 11:00 15:00 17:59 19:00 Temp 98.0 98.4 99.2 98.0 98.4 99.2 Pulse 89 95 105 Resp 18 18 19 18 B/P (MAP) 110/66 (81) 114/69 (84) 106/62 (77) Pulse Ox 100 99 93 99 O2 Delivery Room Air Room Air 04/04/21 04/04/21 04/04/21 04/05/21 19:23 20:19 22:42 01:23 Temp 99.0 99.0 Pulse 100 Resp 18 18 B/P (MAP) 109/68 (82) Pulse Ox 93 98 98 O2 Delivery Room Air Room Air Room Air Room Air 04/05/21 04/05/21 04/05/21 04/05/21 03:00 03:20 05:00 05:42 Temp 98.9 98.9 Pulse 98 Resp 18 18 18 B/P (MAP) 115/62 (79) Pulse Ox 100 98 98 98 O2 Delivery Room Air Room Air Room Air Room Air 04/05/21 07:00 Temp 98.1 98.1 Pulse 98 Resp 18 B/P (MAP) 112/65 (81) Pulse Ox 100 O2 Delivery Room Air Intake and Output 0 04/04/21 04/04/21 04/05/21 15:00 23:00 07:00 Intake Total 120 ml Balance 120 ml Justicifation of Admission Dx: Justifications for Admission: Justification of Admission Dx: Yes Sepsis: Infection KO ARCHER MD Apr 05, 2021 10:38
[2021-04-05 11:00] VITALS: BP 126/75
[2021-04-05] MEDS: IV NORMAL SALINE 1000ML BAG 1,000 ML IV PRN (12:54)
[2021-04-05] MEDS: TAMSULOSIN 0.4 MG CAP.ER.24H. PO SCH (14:13)
--- NOTE | 2021-04-05 14:18 | PDOC2 ---
CONSULT Date of Consult Date of Consult DATE: 04/05/21 TIME: 14:14 Reason for Consult Reason for Consult: E-Lyte abnorma Source Source: Chart review, Patient History of Present Illness Reason for Visit: Ms Bryan is a 45yo female with PMHx DM2, nephrolithiasis, neuropathy who presents to the ED today complaining of dysuria for 1 week and severe bilateral flank pain, symptoms began 3 days ago. She is also complaining of nausea, vomiting which began today, 04/03/2021. Denies any fever, but does have chills. Significant other bedside notes that she has had episodic confusion prior to moving from [place] and has been to neurology initially though very early onset dementia. Of note her hemoglobin A1c has never been less than 14. Since we will continue this for years ago she was treated with nausea and vomiting that started 1 month woman as well as Trulicity. Struggled with follow-up and was going to the "[facility]" clinic and stopped since the ID- pandemic and has not seen a physician in the past year and half. She has never been hospitalized previously but has had outpatient treatment for nephrolithiasis with ESWL. Past Medical History Cardiovascular: HTN CENTRAL NERVOUS SYSTEM: Periperal neuropathy Renal/: Other (Nephrolithiasis) Endocrine: Diabetes Past Surgical History Past Surgical History: Other (D&C, ESWL) Family History Family History: Diabetes, High Cholestrol, Hypertension Social History No ALCOHOL: none Drugs: Marijuana Current Problem List Problem List Problems Medical Problems: (1) Acute kidney injury Status: Acute (2) Acute pyelonephritis Status: Acute (3) DKA (diabetic ketoacidosis) Status: Acute (4) Sepsis Status: Acute Current Medications Current Medications Current Medications Sodium Chloride 1,000 ml @ 1,000 mls/hr 1X ONCE IV Last administered on 04/03/21at 17:01; Start 04/03/21 at 16:30; Stop 04/03/21 at 17:29; Status DC Morphine Sulfate (Morphine Sulfate) 4 mg PRN Q15MIN PRN IV/SQ PAIN GREATER THAN 3/10 Last administered on 04/04/21at 08:24; Start 04/03/21 at 16:30; Stop 04/04/21 at 16:29; Status DC Ondansetron HCl (Zofran) 4 mg 1X ONCE IVP Last administered on 04/03/21at 17:00; Start 04/03/21 at 16:30; Stop 04/03/21 at 16:37; Status DC Sodium Chloride 1,000 ml @ 1,000 mls/hr 1X ONCE IV Last administered on 04/03/21at 19:37; Start 04/03/21 at 17:30; Stop 04/03/21 at 18:29; Status DC Levofloxacin/ Dextrose 100 ml @ 100 mls/hr 1X ONCE IV Last administered on 04/03/21at 19:22; Start 04/03/21 at 18:00; Stop 04/03/21 at 18:59; Status DC Sodium Chloride 1,000 ml @ 150 mls/hr CONT PRN IV SEE I/O RECORD Last administered on 04/05/21at 12:54; Start 04/03/21 at 19:00 Sodium Chloride 1,000 ml @ 500 mls/hr Q2H IV Last administered on 04/03/21at 21:13; Start 04/03/21 at 19:00; Stop 04/03/21 at 20:59; Status DC Insulin Human Regular 100 unit/ Sodium Chloride 101 ml @ 0 mls/hr CONT PRN PRN IV PER PROTOCOL Last administered on 04/04/21at 09:42; Start 04/03/21 at 19:00; Stop 04/04/21 at 15:54; Status DC Potassium Chloride/Water 100 ml @ 100 mls/hr PRN Q1HR PRN IV SEE COMMENTS; Start 04/03/21 at 19:00 Potassium Chloride/Water 100 ml @ 100 mls/hr PRN Q1HR PRN IV SEE COMMENTS; Start 04/03/21 at 19:00 Potassium Chloride/Water 100 ml @ 100 mls/hr PRN Q1HR PRN IV SEE COMMENTS; Start 04/03/21 at 19:00 Insulin Human Regular 100 ml @ 9.77 mls/hr 1X ONCE IV Last administered on 04/03/21at 21:11; Start 04/03/21 at 20:15; Stop 04/03/21 at 20:16; Status DC Ondansetron HCl (Zofran) 4 mg PRN Q8HRS PRN IVP NAUSEA/VOMITING; Start 04/03/21 at 21:30; Stop 04/04/21 at 21:29; Status DC Morphine Sulfate (Morphine Sulfate) 4 mg PRN Q2HR PRN IVP PAIN Last administered on 04/04/21at 02:10; Start 04/03/21 at 21:30; Stop 04/04/21 at 21:29; Status DC Tamsulosin HCl (Flomax) 0.4 mg DAILY PO Last administered on 04/04/21at 13:01; Start 04/04/21 at 09:00 Hydralazine HCl (Apresoline Inj) 10 mg PRN Q4HRS PRN IVP ELEVATED BP, SEE COMMENTS; Start 04/03/21 at 23:00 Fentanyl Citrate (Fentanyl 2ml Vial) 25 mcg PRN Q3HRS PRN IVP SEVERE PAIN 7-10 Last administered on 04/05/21at 14:05; Start 04/03/21 at 23:00 Olanzapine (ZyPREXA ZYDIS) 5 mg PRN BID PRN PO ANXIETY / AGITATION; Start 04/03/21 at 23:00 Ceftriaxone Sodium (Rocephin) 2 gm Q24H IVP Last administered on 04/05/21at 01:00; Start 04/03/21 at 23:15 Insulin Human Lispro (HumaLOG) 0-7 UNITS TIDWMEALS SQ Last administered on 04/05/21at 09:24; Start 04/04/21 at 17:00 Dextrose (Dextrose 50%-Water Syringe) 12.5 gm PRN Q15MIN PRN IV SEE COMMENTS; Start 04/04/21 at 16:00 Insulin Glargine (Lantus Syringe) 10 unit QHS SQ ; Start 04/05/21 at 21:00 Ondansetron HCl (Zofran) 4 mg PRN Q4HRS PRN IVP NAUSEA/VOMITING; Start 04/05/21 at 10:15 Insulin Human Regular 100 unit/ Sodium Chloride 101 ml @ 0 mls/hr CONT PRN IV SEE I/O RECORD Last administered on 04/05/21at 12:52; Start 04/05/21 at 10:30 Active Scripts Active Reported [Delta 8] [Cbd] Allergies Allergies: Coded Allergies: latex (Verified Allergy, Mild, Rash, 04/04/21) Penicillins (Verified Allergy, Unknown, 04/03/21) naproxen (Verified Adverse Reaction, Intermediate, 04/04/21) GIB ROS Review of System As per HPI, rest of the ROS is negative Physical Exam Physical Exam GEN: Awake, Oriented x [], In [] distress EYES: Vision Unchanged, Conjunctiva Normal EN: No EN Drainage, Mucous Membranes [] NECK: [] JVD, [] JVP, Supple, [] Thyromegaly CVS: S1S2, [] Murmur, No Gallop, No Rub,[] Edema RESP: [] Rales, [] Rhonchi,[] Acc. Muscle Use GI: BS + ve, NO Bruit, Non Tender, Non Distended : [] CVA tenderness, [] Suprapubic Tenderness Vital Signs Vital Signs Date Time Temp Pulse Resp B/P (MAP) Pulse Ox O2 Delivery O2 Flow Rate FiO2 04/05/21 14:05 19 94 Room Air 04/05/21 11:00 97.7 91 126/75 (92) 97.7 Assessment & Plan Left pyelonephritis - likely due to passed kidney stone. IV levaquin given PCN allergy with little likelihood of cephalosporin cross allergy will change to rocephin. IVF as well Sepsis - given empiric IVF, f/u urine and blood cultures, empiric levaquin for pyelo DKA - IVF insulin and fluids, npo except for water, nausea control. Can take PO and lantus when gap closes ALISHA - multifactorial, vasomotor nephropathy from dehydration 2/2 DKA and possibly some mild obstruction cleared on left Neuropathy - likely diabetic in nature given history of extremely poor control Cannabinoid positive - counseled on the safety and legality Hyponatremia - nutritional and DKA related, will monitor Labs Labs Laboratory Tests Test 04/03/21 16:15 04/03/21 16:27 04/03/21 16:54 04/03/21 18:55 Urine Collection Type Unknown Urine Color Yellow Urine Clarity Cloudy Urine pH 5.5 (<5.0-8.0) Urine Specific [place] 1.025 (1.000-1.030) Urine Protein >=300 mg/dL (NEG-TRACE) Urine Glucose (UA) >=1000 mg/dL (NEG) Urine Ketones (Stick) >=80 mg/dL (NEG) Urine Blood Large (NEG) Urine Nitrite Negative (NEG) Urine Bilirubin Negative (NEG) Urine Urobilinogen Dipstick 0.2 mg/dL (0.2 mg/dL) Urine Leukocyte Esterase Small (NEG) Urine RBC Tntc /HPF (0-2) Urine WBC 20-40 /HPF (0-4) Urine Squamous Epithelial Cells Mod /LPF Urine Bacteria Moderate /HPF (0-FEW) Urine Hyaline Casts Moderate /HPF Urine Mucus Mod /LPF Urine Opiates Screen Neg (NEG) Urine Methadone Screen Neg (NEG) Urine Barbiturates Neg (NEG) Urine Phencyclidine Screen Neg (NEG) Urine Amphetamine/Methamphetamine Neg (NEG) Urine Benzodiazepines Screen Neg (NEG) Urine Cocaine Screen Neg (NEG) Urine Cannabinoids Screen Pos (NEG) Urine Ethyl Alcohol Neg (NEG) Bedside Urine HCG, Qualitative Hcg negative (Negative) White Blood Count 27.3 x10^3/uL (4.0-11.0) Red Blood Count 5.22 x10^6/uL (3.50-5.40) Hemoglobin 15.7 g/dL (12.0-15.5) Hematocrit 48.4 % (36.0-47.0) Mean Corpuscular Volume 93 fL (79-100) Mean Corpuscular Hemoglobin 30 pg (25-35) Mean Corpuscular Hemoglobin Concent 33 g/dL (31-37) Red Cell Distribution Width 13.2 % (11.5-14.5) Platelet Count 456 x10^3/uL (140-400) Neutrophils (%) (Auto) 84 % (31-73) Lymphocytes (%) (Auto) 5 % (24-48) Monocytes (%) (Auto) 10 % (0-9) Eosinophils (%) (Auto) 0 % (0-3) Basophils (%) (Auto) 1 % (0-3) Neutrophils # (Auto) 22.9 x10^3/uL (1.8-7.7) Lymphocytes # (Auto) 1.4 x10^3/uL (1.0-4.8) Monocytes # (Auto) 2.7 x10^3/uL (0.0-1.1) Eosinophils # (Auto) 0.0 x10^3/uL (0.0-0.7) Basophils # (Auto) 0.3 x10^3/uL (0.0-0.2) Segmented Neutrophils % 78 % (35-66) Band Neutrophils % 9 % (0-9) Lymphocytes % 7 % (24-48) Monocytes % 6 % (0-10) Platelet Estimate Increased (ADEQUATE) Sodium Level 130 mmol/L (136-145) Potassium Level 5.2 mmol/L (3.5-5.1) Chloride Level 94 mmol/L (98-107) Carbon Dioxide Level 5 mmol/L (21-32) Anion Gap 31 (6-14) Blood Urea Nitrogen 13 mg/dL (7-20) Creatinine 1.5 mg/dL (0.6-1.0) Estimated GFR (Cockcroft-Gault) 37.6 BUN/Creatinine Ratio 9 (6-20) Glucose Level 467 mg/dL (70-99) Calcium Level 9.9 mg/dL (8.5-10.1) Magnesium Level 1.9 mg/dL (1.8-2.4) Total Bilirubin 0.4 mg/dL (0.2-1.0) Aspartate Amino Transf (AST/SGOT) 9 U/L (15-37) Alanine Aminotransferase (ALT/SGPT) 10 U/L (14-59) Alkaline Phosphatase 140 U/L (46-116) Total Protein 8.8 g/dL (6.4-8.2) Albumin 3.6 g/dL (3.4-5.0) Albumin/Globulin Ratio 0.7 (1.0-1.7) Lipase 64 U/L (73-393) Ethyl Alcohol Level < 10 mg/dL (0-10) Lactic Acid Level 2.7 mmol/L (0.4-2.0) Test 04/03/21 20:50 04/03/21 21:55 04/03/21 22:30 04/03/21 23:42 Glucose (Fingerstick) 437 mg/dL (70-99) 404 mg/dL (70-99) 330 mg/dL (70-99) Lactic Acid Level 3.5 mmol/L (0.4-2.0) SARS-CoV-2 RNA (MARU) Negative (Negative) SARS-CoV-2 Antigen (Rapid) Negative (NEGATIVE) Test 04/04/21 01:04 04/04/21 02:14 04/04/21 03:24 04/04/21 04:41 Glucose (Fingerstick) 267 mg/dL (70-99) 186 mg/dL (70-99) 154 mg/dL (70-99) 151 mg/dL (70-99) Test 04/04/21 05:35 04/04/21 05:50 04/04/21 07:38 04/04/21 09:34 Glucose (Fingerstick) 152 mg/dL (70-99) 158 mg/dL (70-99) 155 mg/dL (70-99) White Blood Count 21.2 x10^3/uL (4.0-11.0) Red Blood Count 4.75 x10^6/uL (3.50-5.40) Hemoglobin 14.7 g/dL (12.0-15.5) Hematocrit 42.7 % (36.0-47.0) Mean Corpuscular Volume 90 fL (79-100) Mean Corpuscular Hemoglobin 31 pg (25-35) Mean Corpuscular Hemoglobin Concent 34 g/dL (31-37) Red Cell Distribution Width 12.8 % (11.5-14.5) Platelet Count 359 x10^3/uL (140-400) Neutrophils (%) (Auto) 81 % (31-73) Lymphocytes (%) (Auto) 6 % (24-48) Monocytes (%) (Auto) 12 % (0-9) Eosinophils (%) (Auto) 0 % (0-3) Basophils (%) (Auto) 0 % (0-3) Neutrophils # (Auto) 17.2 x10^3/uL (1.8-7.7) Lymphocytes # (Auto) 1.3 x10^3/uL (1.0-4.8) Monocytes # (Auto) 2.6 x10^3/uL (0.0-1.1) Eosinophils # (Auto) 0.0 x10^3/uL (0.0-0.7) Basophils # (Auto) 0.1 x10^3/uL (0.0-0.2) Sodium Level 138 mmol/L (136-145) Potassium Level 3.7 mmol/L (3.5-5.1) Chloride Level 107 mmol/L (98-107) Carbon Dioxide Level 14 mmol/L (21-32) Anion Gap 17 (6-14) Blood Urea Nitrogen 17 mg/dL (7-20) Creatinine 1.2 mg/dL (0.6-1.0) Estimated GFR (Cockcroft-Gault) 48.6 Glucose Level 133 mg/dL (70-99) Lactic Acid Level 1.4 mmol/L (0.4-2.0) Calcium Level 9.3 mg/dL (8.5-10.1) Phosphorus Level 1.8 mg/dL (2.6-4.7) Test 04/04/21 10:39 04/04/21 11:08 04/04/21 13:00 04/04/21 14:55 Glucose (Fingerstick) 165 mg/dL (70-99) 170 mg/dL (70-99) 115 mg/dL (70-99) 87 mg/dL (70-99) Test 04/04/21 16:47 04/04/21 19:38 04/05/21 06:30 04/05/21 08:28 Glucose (Fingerstick) 100 mg/dL (70-99) 189 mg/dL (70-99) 270 mg/dL (70-99) White Blood Count 21.2 x10^3/uL (4.0-11.0) Red Blood Count 4.54 x10^6/uL (3.50-5.40) Hemoglobin 13.6 g/dL (12.0-15.5) Hematocrit 42.2 % (36.0-47.0) Mean Corpuscular Volume 93 fL (79-100) Mean Corpuscular Hemoglobin 30 pg (25-35) Mean Corpuscular Hemoglobin Concent 32 g/dL (31-37) Red Cell Distribution Width 13.8 % (11.5-14.5) Platelet Count 354 x10^3/uL (140-400) Neutrophils (%) (Auto) 85 % (31-73) Lymphocytes (%) (Auto) 5 % (24-48) Monocytes (%) (Auto) 9 % (0-9) Eosinophils (%) (Auto) 0 % (0-3) Basophils (%) (Auto) 1 % (0-3) Neutrophils # (Auto) 18.1 x10^3/uL (1.8-7.7) Lymphocytes # (Auto) 1.1 x10^3/uL (1.0-4.8) Monocytes # (Auto) 1.8 x10^3/uL (0.0-1.1) Eosinophils # (Auto) 0.0 x10^3/uL (0.0-0.7) Basophils # (Auto) 0.1 x10^3/uL (0.0-0.2) Sodium Level 135 mmol/L (136-145) Potassium Level 4.2 mmol/L (3.5-5.1) Chloride Level 104 mmol/L (98-107) Carbon Dioxide Level 7 mmol/L (21-32) Anion Gap 24 (6-14) Blood Urea Nitrogen 21 mg/dL (7-20) Creatinine 1.0 mg/dL (0.6-1.0) Estimated GFR (Cockcroft-Gault) 60.0 BUN/Creatinine Ratio 21 (6-20) Glucose Level 258 mg/dL (70-99) Calcium Level 9.2 mg/dL (8.5-10.1) Phosphorus Level 2.9 mg/dL (2.6-4.7) Total Bilirubin 0.2 mg/dL (0.2-1.0) Aspartate Amino Transf (AST/SGOT) 17 U/L (15-37) Alanine Aminotransferase (ALT/SGPT) 17 U/L (14-59) Alkaline Phosphatase 122 U/L (46-116) C-Reactive Protein, Quantitative 149.0 mg/L (0-3.3) Total Protein 7.0 g/dL (6.4-8.2) Albumin 2.5 g/dL (3.4-5.0) Albumin/Globulin Ratio 0.6 (1.0-1.7) Test 04/05/21 11:05 04/05/21 11:44 Lactic Acid Level 0.9 mmol/L (0.4-2.0) Acetone Level Sm pos (NEG) Glucose (Fingerstick) 255 mg/dL (70-99) Laboratory Tests Test 04/04/21 14:55 04/04/21 16:47 04/04/21 19:38 04/05/21 06:30 Glucose (Fingerstick) 87 mg/dL (70-99) 100 mg/dL (70-99) 189 mg/dL (70-99) White Blood Count 21.2 x10^3/uL (4.0-11.0) Red Blood Count 4.54 x10^6/uL (3.50-5.40) Hemoglobin 13.6 g/dL (12.0-15.5) Hematocrit 42.2 % (36.0-47.0) Mean Corpuscular Volume 93 fL (79-100) Mean Corpuscular Hemoglobin 30 pg (25-35) Mean Corpuscular Hemoglobin Concent 32 g/dL (31-37) Red Cell Distribution Width 13.8 % (11.5-14.5) Platelet Count 354 x10^3/uL (140-400) Neutrophils (%) (Auto) 85 % (31-73) Lymphocytes (%) (Auto) 5 % (24-48) Monocytes (%) (Auto) 9 % (0-9) Eosinophils (%) (Auto) 0 % (0-3) Basophils (%) (Auto) 1 % (0-3) Neutrophils # (Auto) 18.1 x10^3/uL (1.8-7.7) Lymphocytes # (Auto) 1.1 x10^3/uL (1.0-4.8) Monocytes # (Auto) 1.8 x10^3/uL (0.0-1.1) Eosinophils # (Auto) 0.0 x10^3/uL (0.0-0.7) Basophils # (Auto) 0.1 x10^3/uL (0.0-0.2) Sodium Level 135 mmol/L (136-145) Potassium Level 4.2 mmol/L (3.5-5.1) Chloride Level 104 mmol/L (98-107) Carbon Dioxide Level 7 mmol/L (21-32) Anion Gap 24 (6-14) Blood Urea Nitrogen 21 mg/dL (7-20) Creatinine 1.0 mg/dL (0.6-1.0) Estimated GFR (Cockcroft-Gault) 60.0 BUN/Creatinine Ratio 21 (6-20) Glucose Level 258 mg/dL (70-99) Calcium Level 9.2 mg/dL (8.5-10.1) Phosphorus Level 2.9 mg/dL (2.6-4.7) Total Bilirubin 0.2 mg/dL (0.2-1.0) Aspartate Amino Transf (AST/SGOT) 17 U/L (15-37) Alanine Aminotransferase (ALT/SGPT) 17 U/L (14-59) Alkaline Phosphatase 122 U/L (46-116) C-Reactive Protein, Quantitative 149.0 mg/L (0-3.3) Total Protein 7.0 g/dL (6.4-8.2) Albumin 2.5 g/dL (3.4-5.0) Albumin/Globulin Ratio 0.6 (1.0-1.7) Test 04/05/21 08:28 04/05/21 11:05 04/05/21 11:44 Glucose (Fingerstick) 270 mg/dL (70-99) 255 mg/dL (70-99) Lactic Acid Level 0.9 mmol/L (0.4-2.0) Acetone Level Sm pos (NEG) Review All relevant outside records, renal labs, imaging studies, telemetry/EKG's were reviewed. Images Images CT ABDOMEN PELVIS WO CONTRAST Mild prominence of the wall the distal esophagus which is not very distended. Abdominal aorta is not aneurysmal. Suspected small fat-containing inguinal hernia. Low-density within the liver at the falciform ligament commonly from focal fat. No peripancreatic fluid collection. The gallbladder is distended at time of exam. Splenic calcified granuloma. Left-sided moderate hydronephrosis and hydroureter with perinephric edema. There is a suspected 3 mm high density focus within the urinary bladder. Urinary bladder is decompressed with prominence the wall and some haziness of the adjacent fat. Nonobstructive right renal stone without right-sided hydronephrosis. No periappendiceal inflammatory changes. No dilated loops of bowel to suggest obstruction. Tiny fat-containing umbilical hernia. Degenerative changes the spine. Sclerosis at sacroiliac joints which can be seen with chronic sacroiliitis or degenerative changes. There is a similar appearance at the pubic symphysis. IMPRESSION: * Left-sided perinephric and periureteral edema with hydronephrosis and hydroureter. This could be either from a recently passed ureter stone or infectious in nature from urinary tract infection. * Wall thickening of the urinary bladder with adjacent edema to the fat. Causes such as cystitis are within the differential. * Nonobstructive right renal stone. * Mild prominence the wall the distal esophagus which could be from lack of distention but would correlate with symptoms given that a pathologic cause such as esophagitis is not excluded. Esophageal mass would be less likely in a patient of this age unless they have risk factors. JANUARY,WHITLEY MD Apr 05, 2021 14:18
[2021-04-05] MEDS ORDERED: SODIUM BICARBONATE VIAL 150 MEQ in IV DEXTROSE 5% 1,000 ML IV ONE (14:30)
[2021-04-05 15:00] VITALS: BP 106/62
--- NOTE | 2021-04-05 16:59 | PDOC ---
Infectious Disease Note Vital Sign Vital Signs Vital Signs Date Time Temp Pulse Resp B/P (MAP) Pulse Ox O2 Delivery O2 Flow Rate FiO2 04/05/21 15:00 98.0 92 18 106/62 (77) 98 Room Air 98.0 Labs Lab Laboratory Tests Test 04/04/21 19:38 04/05/21 06:30 04/05/21 08:28 04/05/21 11:05 Glucose (Fingerstick) 189 mg/dL (70-99) 270 mg/dL (70-99) White Blood Count 21.2 x10^3/uL (4.0-11.0) Red Blood Count 4.54 x10^6/uL (3.50-5.40) Hemoglobin 13.6 g/dL (12.0-15.5) Hematocrit 42.2 % (36.0-47.0) Mean Corpuscular Volume 93 fL (79-100) Mean Corpuscular Hemoglobin 30 pg (25-35) Mean Corpuscular Hemoglobin Concent 32 g/dL (31-37) Red Cell Distribution Width 13.8 % (11.5-14.5) Platelet Count 354 x10^3/uL (140-400) Neutrophils (%) (Auto) 85 % (31-73) Lymphocytes (%) (Auto) 5 % (24-48) Monocytes (%) (Auto) 9 % (0-9) Eosinophils (%) (Auto) 0 % (0-3) Basophils (%) (Auto) 1 % (0-3) Neutrophils # (Auto) 18.1 x10^3/uL (1.8-7.7) Lymphocytes # (Auto) 1.1 x10^3/uL (1.0-4.8) Monocytes # (Auto) 1.8 x10^3/uL (0.0-1.1) Eosinophils # (Auto) 0.0 x10^3/uL (0.0-0.7) Basophils # (Auto) 0.1 x10^3/uL (0.0-0.2) Sodium Level 135 mmol/L (136-145) Potassium Level 4.2 mmol/L (3.5-5.1) Chloride Level 104 mmol/L (98-107) Carbon Dioxide Level 7 mmol/L (21-32) Anion Gap 24 (6-14) Blood Urea Nitrogen 21 mg/dL (7-20) Creatinine 1.0 mg/dL (0.6-1.0) Estimated GFR (Cockcroft-Gault) 60.0 BUN/Creatinine Ratio 21 (6-20) Glucose Level 258 mg/dL (70-99) Calcium Level 9.2 mg/dL (8.5-10.1) Phosphorus Level 2.9 mg/dL (2.6-4.7) Total Bilirubin 0.2 mg/dL (0.2-1.0) Aspartate Amino Transf (AST/SGOT) 17 U/L (15-37) Alanine Aminotransferase (ALT/SGPT) 17 U/L (14-59) Alkaline Phosphatase 122 U/L (46-116) C-Reactive Protein, Quantitative 149.0 mg/L (0-3.3) Total Protein 7.0 g/dL (6.4-8.2) Albumin 2.5 g/dL (3.4-5.0) Albumin/Globulin Ratio 0.6 (1.0-1.7) Lactic Acid Level 0.9 mmol/L (0.4-2.0) Acetone Level Sm pos (NEG) Test 04/05/21 11:44 04/05/21 14:09 04/05/21 15:09 04/05/21 16:55 Glucose (Fingerstick) 255 mg/dL (70-99) 278 mg/dL (70-99) 225 mg/dL (70-99) 208 mg/dL (70-99) Micro Microbiology 04/03/21 Blood Culture - Preliminary, Resulted NO GROWTH AFTER 1 DAY 04/03/21 Urine Culture - Final, Complete Objective Assessment pt seen, consult dictated Plan Plan of Care / YVONNE SAHNI MD Apr 05, 2021 16:59
[2021-04-05 19:00] VITALS: BP 118/67
--- NOTE | 2021-04-05 19:06 | CONS ---
DATE OF CONSULTATION: 04/05/2021 REFERRING PHYSICIAN: Vasyl Figueroa MD. REASON FOR CONSULTATION: Pyelonephritis. HISTORY OF PRESENT ILLNESS: This is a 45-year-old female with history of diabetes, which she is not taking any medication for, came in with painful urination for about 1 week. She was trying to flush her kidney by drinking more water, she says, or fluids. She has had some flank pain, not feeling well, nausea, vomiting. The patient initially was diagnosed with pyelonephritis and DKA, looks like she was on insulin drip and then it was discontinued and transferred to the floor. The patient, in fact, is complaining of pain all over. Her white count is 21,000. Her anion gap was 17 yesterday, down from 31 on admission and now again, bicarbonate is down to 7 and anion gap is up to 24. The patient is not feeling well. The patient had a CT of the abdomen and pelvis, it showed possibly pyelonephritis, but possibly passing the ureteral stone with left-sided perinephric and periureteral edema with hydronephrosis and hydroureter. The patient is on Rocephin. PAST MEDICAL HISTORY: Positive for diabetes, fibromyalgia, gastroesophageal reflux disease, psychiatric disorder, PTSD, depression, anxiety, alcohol abuse. SOCIAL HISTORY: Positive for alcohol abuse, smoking and some drug use. ALLERGIES: SHE IS LISTED ALLERGIC TO PENICILLIN. CURRENT MEDICATIONS: Reviewed. REVIEW OF SYSTEMS: As in HPI. All other systems reviewed are negative. PHYSICAL EXAMINATION: GENERAL: Alert, oriented female, who does not look comfortable. Breathing dominguez, she is okay. VITAL SIGNS: Temperature 98.1, pulse 97, respirations 18, blood pressure 125/77. HEENT: Both pupils are round and reacting. No conjunctival lesion. No lesion in the mouth. NECK: Supple, no JVP, no lymphadenopathy. LUNGS: Clear. HEART: S1, S2 regular. ABDOMEN: Soft, nontender. No rebound or guarding. No organomegaly. EXTREMITIES: No edema or cyanosis. SKIN: Unremarkable. NEUROLOGIC: The patient is alert, awake. Moves all the extremities. No focal deficit. LABORATORY DATA: White count is 21,000. BUN and creatinine is 21 and 1.0, bicarbonate is 7, anion gap is 24, blood sugar is 270. Urinalysis showed 20-40 wbc's. Urine culture and blood culture is pending. Abdominal CT as I mentioned earlier. IMPRESSION: 1. Pyelonephritis and/or plus or minus passed ureteral stone. 2. Metabolic acidosis, most likely she is going back into diabetic ketoacidosis. 3. Leukocytosis. 4. Fibromyalgia. 5. Diabetes. RECOMMENDATIONS: We will get lactic acid, acetone. The patient is probably going to need to go on IV insulin, with the bicarb the way it is. We will get ABGs and continue Rocephin. Supportive care. We will follow cultures. Thank you very much, Dr. Figueroa, for giving me the opportunity to participate in this patient's care. LORRIE/PARIS/SADAF DR: Santiago TID: [id number]
[2021-04-05] MEDS: PATCH REMOVAL. MC SCH (21:00)
[2021-04-05] MEDS: ACETAMINOPHEN 325 MG TABLET. PO PRN (22:17)
[2021-04-05] MEDS: LIDOCAINE (700MG/PATCH) PATCH. TD SCH (22:18)
[2021-04-05] MEDS: INSULIN GLARGINE SYRINGE. SQ SCH (22:19)
[2021-04-05 23:06] VITALS: BP 141/67
[2021-04-06] MEDS: fentaNYL PF VIAL 100 MCG/2 ML VIAL IVP PRN ×2 (02:19→06:05)
--- NOTE | 2021-04-06 02:54 | NUR ---
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 She stated that she has no cardiac problems. Telemetry d/c'd per protocol.
[2021-04-06 03:00] VITALS: BP 133/68
[2021-04-06 03:12] LABS: HEMOGLOBIN A1C 13.5 % (4.8-5.6)
[2021-04-06] MEDS: ACETAMINOPHEN 325 MG TABLET. PO PRN ×3 (05:51→21:57)
[2021-04-06 07:00] VITALS: BP 121/74
[2021-04-06] MEDS: INSULIN LISPRO 300 UNITS/3 ML VIAL. SQ SCH ×3 (08:00→17:00)
[2021-04-06 08:38] LABS: BASO # 0.2 x10^3/uL (0.0-0.2); BASO % 1 % (0-3); EOS # 0.1 x10^3/uL (0.0-0.7); EOS % 1 % (0-3); HEMATOCRIT 36.9 % (36.0-47.0); HEMOGLOBIN 12.4 g/dL (12.0-15.5); LYMPH # 1.2 x10^3/uL (1.0-4.8); LYMPH % 8 % (24-48); MEAN CORPUSCULAR HEMOGLOBIN 29 pg (25-35); MEAN CORPUSCULAR HGB CONC 34 g/dL (31-37); MEAN CORPUSCULAR VOLUME 88 fL (79-100); MONO # 1.3 x10^3/uL (0.0-1.1); MONO % 9 % (0-9); NEUT # 11.8 x10^3/uL (1.8-7.7); NEUT % 81 % (31-73); PLATELET COUNT 366 x10^3/uL (140-400); RED BLOOD COUNT 4.21 x10^6/uL (3.50-5.40); RED CELL DISTRIBUTION WIDTH 13.6 % (11.5-14.5); WHITE BLOOD COUNT 14.6 x10^3/uL (4.0-11.0)
[2021-04-06] MEDS: TAMSULOSIN 0.4 MG CAP.ER.24H. PO SCH (09:15)
[2021-04-06] MEDS: LIDOCAINE (700MG/PATCH) PATCH. TD SCH (09:15)
[2021-04-06 10:40] LABS: ALBUMIN 2.2 g/dL (3.4-5.0); ALBUMIN/GLOBULIN RATIO 0.5 (1.0-1.7); CALCIUM 8.8 mg/dL (8.5-10.1); CREATININE 0.8 mg/dL (0.6-1.0); GFR 77.6; TOTAL BILIRUBIN 0.3 mg/dL (0.2-1.0); TOTAL PROTEIN 6.4 g/dL (6.4-8.2)
[2021-04-06 10:42] LABS: POTASSIUM 2.6 mmol/L (3.5-5.1)
[2021-04-06 11:00] VITALS: BP 112/75
--- NOTE | 2021-04-06 11:14 | PDOC ---
PROGRESS NOTES Date of Service: DATE: 04/06/21 TIME: 11:11 Chief Complaint Chief Complaint Images Images CT ABDOMEN PELVIS WO CONTRAST Mild prominence of the wall the distal esophagus which is not very distended. Abdominal aorta is not aneurysmal. Suspected small fat-containing inguinal hernia. Low-density within the liver at the falciform ligament commonly from focal fat. No peripancreatic fluid collection. The gallbladder is distended at time of exam. Splenic calcified granuloma. Left-sided moderate hydronephrosis and hydroureter with perinephric edema. There is a suspected 3 mm high density focus within the urinary bladder. Urinary bladder is decompressed with prominence the wall and some haziness of the adjacent fat. Nonobstructive right renal stone without right-sided hydronephrosis. No periappendiceal inflammatory changes. No dilated loops of bowel to suggest obstruction. Tiny fat-containing umbilical hernia. Degenerative changes the spine. Sclerosis at sacroiliac joints which can be seen with chronic sacroiliitis or degenerative changes. There is a similar appearance at the pubic symphysis. IMPRESSION: * Left-sided perinephric and periureteral edema with hydronephrosis and hydroureter. This could be either from a recently passed ureter stone or infectious in nature from urinary tract infection. * Wall thickening of the urinary bladder with adjacent edema to the fat. Causes such as cystitis are within the differential. * Nonobstructive right renal stone. * Mild prominence the wall the distal esophagus which could be from lack of distention but would correlate with symptoms given that a pathologic cause such as esophagitis is not excluded. Esophageal mass would be less likely in a patient of this age unless they have risk factors. VTE Prophylaxis Ordered VTE Prophylaxis Devices: No VTE Pharmacological Prophylaxi: Yes Assessment/Plan Assessment/Plan A/P: Left pyelonephritis - likely due to passed kidney stone. IV levaquin given PCN allergy with little likelihood of cephalosporin cross allergy will change to rocephin. IVF as well Sepsis - given empiric IVF, f/u urine and blood cultures, empiric levaquin for pyelo DKA - IVF insulin and fluids, npo except for water, nausea control. Can take PO and lantus when gap closes ALISHA - multifactorial, vasomotor nephropathy from dehydration 2/2 DKA and possibly some mild obstruction cleared on left Neuropathy - likely diabetic in nature given history of extremely poor control Cannabinoid positive - counseled on the safety and legality Hyponatremia - nutritional and DKA related, will monitor FEN - NPO PPX - heparin FULL CODE Dispo - inpatient RESTART INSULIN DRIP PROTOCOL 04-05 33 MIN CC TIME Justifications for Admission Justifications for Admission Other Justification History of Present Illness History of Present Illness identification/Chief Complaint Chief Complaint Abdominal pain Source Source: Caregiver, Chart review, Patient History of Present Illness History of Present Illness Ms Bryan is a 45yo female with PMHx DM2, nephrolithiasis, neuropathy who presents to the ED today complaining of dysuria for 1 week and severe bilateral flank pain, symptoms began 3 days ago. She is also complaining of nausea, vomiting which began today, 04/03/2021. Denies any fever, but does have chills. Significant other bedside notes that she has had episodic confusion prior to moving from [place] and has been to neurology initially though very early onset dementia. Of note her hemoglobin A1c has never been less than 14. Since we will continue this for years ago she was treated with nausea and vomiting that started 1 month woman as well as Trulicity. Struggled with follow-up and was going to the [facility] and stopped since the COVID-19 pandemic and has not seen a physician in the past year and half. She has never been hospitalized previously but has had outpatient treatment for nephrolithiasis with ESWL. WBC 27.3, Hb 15.7, platelets 156, NA 130, K4.3, chloride 94 HCO3 5 BUN 31, CR 1.5, BUN 13, glucose 467, magnesium 1.9, calcium 9.9, lactic acid 2.7, AST 9, bilirubin 0.4, ALT 10, alkaline phos is 140, albumin 3.6. UDS positive for cannabinoids. UA with large protein large glucose positive ketones positive blood positive leukocyte esterase moderate bacteria negative urine hCG. CT abdomen pelvis with left-sided perinephric and periureteral edema with hydronephrosis and hydroureter, wall thickening of the urinary bladder with adjacent edema to the fat and nonobstructive right renal stone. Given IVF, IV levofloxacin, IV insulin and admitted for further care Past Medical History Cardiovascular: HTN CENTRAL NERVOUS SYSTEM: Periperal neuropathy Renal/: Other (Nephrolithiasis) Endocrine: Diabetes Past Surgical History Past Surgical History: Other (D&C, ESWL) Family History Family History: Diabetes, High Cholestrol, Hypertension Social History Smoke: No ALCOHOL: none Drugs: Marijuana Current Medications Current Medications Current Medications Sodium Chloride 1,000 ml @ 1,000 mls/hr 1X ONCE IV Last administered on 04/03/21at 17:01; Start 04/03/21 at 16:30; Stop 04/03/21 at 17:29; Status DC Morphine Sulfate (Morphine Sulfate) 4 mg PRN Q15MIN PRN IV/SQ PAIN GREATER THAN 3/10 Last administered on 04/03/21at 17:01; Start 04/03/21 at 16:30; Stop 04/04/21 at 16:29 Ondansetron HCl (Zofran) 4 mg 1X ONCE IVP Last administered on 04/03/21at 17:00; Start 04/03/21 at 16:30; Stop 04/03/21 at 16:37; Status DC Sodium Chloride 1,000 ml @ 1,000 mls/hr 1X ONCE IV ; Start 04/03/21 at 17:30; Stop 04/03/21 at 18:29; Status DC Levofloxacin/ Dextrose 100 ml @ 100 mls/hr 1X ONCE IV ; Start 04/03/21 at 18:00; Stop 04/03/21 at 18:59 Allergies Allergies: Coded Allergies: naproxen (Verified Allergy, Intermediate, 04/03/21) GIB Penicillins (Verified Allergy, Unknown, 04/03/21) ROS General: YES: Chills, Night Sweats, Fatigue, Malaise; No: Appetite, Other PSYCHOLOGICAL ROS: YES: Anxiety, Disorientation, Irritablity, Memory difficulties, Mood Swings, Obsessive thoughts; No: Behavioral Disorder, Concentration difficultie, Decreased libido, Depression, Hallucinations, Hostility, Physical abuse, Sexual abuse, Sleep disturbances, Suicidal ideation, Other Eyes: Yes Blurry vision; No Decreased vision, No Double vision, No Dry eyes, No Excessive tearing, No Eye Pain, No Itchy Eyes, No Loss of vision, No Photophobia, No Scotomata, No Uses contacts, No Uses glasses, No Other HEENT: No: Heacaches, Visual Changes, Hearing change, Nasal congestion, Nasal discharge, Oral lesions, Sinus pain, Sore Throat, Epistaxis, Sneezing, Snoring, Tinnitus, Vertigo, Vocal changes, Other ALLERGY AND IMMUNOLOGY: No: Hives, Insect Bite Sensitivity, Itchy/Watery Eyes, Nasal Congestion, Post Nasal Drip, Seasonal Allergies, Other Hematological and Lymphatic: No: Bleeding Problems, Blood Clots, Blood Transfusions, Brusing, Night Sweats, Pallor, Swollen Lymph Nodes, Other ENDOCRINE: No: Breast Changes, Galactorrhea, Hair Pattern Changes, Hot Flashes, Malaise/lethargy, Mood Swings, Palpitations, Polydipsia/polyuria, Skin Changes, Temperature Intolerance, Unexpected Weight Changes, Other Breast: No New/Changing Breast Lumps, No Nipple changes, No Nipple discharge, No Other Respiratory: No: Cough, Hemoptysis, Orthopnea, Pleuritic Pain, Shortness of breath, SOB with excertion, Sputum Changes, Stridor, Tachypnea, Wheezing, Other Cardiovascular: No Chest Pain, No Palpitations, No Orthopnea, No Paroxysmal Noc. Dyspnea, No Edema, No Lt Headedness, No Other Gastrointestinal: Yes Nausea, Yes Abdominal Pain; No Vomiting, No Diarrhea, No Constipation, No Melena, No Hematochezia, No Other Genitourinary: YES Dysuria, YES Frequency, YES Retention, YES Urgency, YES Pain , YES Flank Pain; No Incontinence, No Hematuria, No Discharge, No Other, No , No , No , No , No , No , No Musculoskeletal: No Gait Disturbance, No Joint Pain, No Joint Stiffness, No Joint Swelling, No Muscle Pain, No Muscular Weakness, No Pain In:, No Swelling In:, No Other Neurological: Yes Memory Loss, Yes Numbness/Tingling; No Behavorial Changes, No Bowel/Bladder ControlChng, No Confusion, No Dizziness, No Gait Disturbance, No Headaches, No Impaired Coord/balance, No Seizures, No Speech Problems, No Tremors, No Visual Changes, No Weakness, No Other Skin: No Dry Skin, No Eczema, No Hair Changes, No Lumps, No Mole Changes, No Mottling, No Nail Changes, No Pruritus, No Rash, No Skin Lesion Changes, No Oth er, No Acne 04-04 Left pyelonephritis - passed kidney stone. IV levaquin given PCN allergy with little likelihood of cephalosporin cross allergy will change to rocephin. IVF as well Left-sided moderate hydronephrosis and hydroureter with perinephric edema. There is a suspected 3 mm high density focus within the urinary bladder. Urinary bladder is decompressed with prominence the wall and some haziness of the adjacent fat. Nonobstructive right renal stone without right-sided hydronephrosis. Sepsis - given empiric IVF, f/u urine and blood cultures, empiric levaquin for pyelo DKA - IVF insulin and fluids, npo except for water, nausea control. Can take PO and lantus when gap closes ALISHA - multifactorial, vasomotor nephropathy from dehydration 2/2 DKA and possi radha some mild obstruction cleared on left Neuropathy - likely diabetic in nature given history of extremely poor control Cannabinoid positive - counseled on the safety and legality Hyponatremia - nutritional and DKA related D/W RN ID CONSULT 37 min pt exam, chart review, > 50% of time spent with exam, chart review, pt care coordination 04-05 Mild prominence the wall the distal esophagus which could be from lack of distention but would correlate with symptoms given that a pathologic cause such as esophagitis Left pyelonephritis - passed kidney stone. IV levaquin given PCN allergy with little likelihood of cephalosporin cross allergy will change to rocephin. IVF as well Left-sided moderate hydronephrosis and hydroureter with perinephric edema. There is a suspected 3 mm high density focus within the urinary bladder. Urinary bladder is decompressed with prominence the wall and some haziness of the adjacent fat. Nonobstructive right renal stone without right-sided hydronephrosis. Sepsis - given empiric IVF, f/u urine and blood cultures, empiric levaquin for pyelo DKA - IVF insulin and fluids, npo except for water, nausea control. Can take PO and lantus when gap closes ALISHA - multifactorial, vasomotor nephropathy from dehydration 2/2 DKA and possibly some mild obstruction cleared on left Neuropathy - likely diabetic in nature given history of extremely poor control Cannabinoid positive - counseled on the safety and legality Hyponatremia - nutritional and DKA related D/W RN ID CONSULT NEPHROLOGY CONSULT 36 min pt exam, chart review, > 50% of time spent with exam, chart review, pt care coordination 04-06 k=2.6, replaced ALISHA - multifactorial, vasomotor nephropathy from dehydration 2/2 DKA and possibly some mild obstruction cleared on left Mild prominence the wall the distal esophagus which could be from lack of distention but would correlate with symptoms given that a pathologic cause such as esophagitis Left pyelonephritis - passed kidney stone. IV levaquin given PCN allergy with little likelihood of cephalosporin cross allergy will change to rocephin. IVF as well Left-sided moderate hydronephrosis and hydroureter with perinephric edema. There is a suspected 3 mm high density focus within the urinary bladder. Urinary bladder is decompressed with prominence the wall and some haziness of the adjacent fat. Nonobstructive right renal stone without right-sided hydronephrosis. Sepsis - given empiric IVF, f/u urine and blood cultures, empiric levaquin for pyelo DKA - IVF insulin and fluids, npo except for water, nausea control. Can take PO and lantus when gap closes ALISHA - multifactorial, vasomotor nephropathy from dehydration 2/2 DKA and possi radha some mild obstruction cleared on left Neuropathy - likely diabetic in nature given history of extremely poor control Cannabinoid positive - counseled on the safety and legality Hyponatremia - nutritional and DKA related D/W RN ID CONSULT NEPHROLOGY CONSULT renal us 04-06 pending 32 min cc time Vitals Vitals Vital Signs Date Time Temp Pulse Resp B/P (MAP) Pulse Ox O2 Delivery O2 Flow Rate FiO2 04/06/21 07:00 98.6 88 20 121/74 (90) 98 Room Air 98.6 Physical Exam General: Alert, Oriented X3, Cooperative, No acute distress, mild distress Heart: Regular rate Abdomen: Normal bowel sounds, Soft Extremities: No cyanosis, No edema, Normal pulses Labs LABS NDICATION: Reason: flank pain hx of kidney stones / Spl. Instructions: / History: . COMPARISON: None. TECHNIQUE: Axial CT images obtained through the abdomen and pelvis without contrast. One or more of the following individualized dose reduction techniques were utilized for this examination: 1. Automated exposure control; 2. Adjustment of the mA and/or kV according to patient size; 3. Use of iterative reconstruction technique. FINDINGS: Mild prominence of the wall the distal esophagus which is not very distended. Abdominal aorta is not aneurysmal. Suspected small fat-containing inguinal hernia. Low-density within the liver at the falciform ligament commonly from focal fat. No peripancreatic fluid collection. The gallbladder is distended at time of exam. Splenic calcified granuloma. Left-sided moderate hydronephrosis and hydroureter with perinephric edema. There is a suspected 3 mm high density focus within the urinary bladder. Urinary bladder is decompressed with prominence the wall and some haziness of the adjacent fat. Nonobstructive right renal stone without right-sided hydronephrosis. No periappendiceal inflammatory changes. No dilated loops of bowel to suggest obstruction. Tiny fat-containing umbilical hernia. Degenerative changes the spine. Sclerosis at sacroiliac joints which can be seen with chronic sacroiliitis or degenerative changes. There is a similar appearance at the pubic symphysis. IMPRESSION: * Left-sided perinephric and periureteral edema with hydronephrosis and hydroureter. This could be either from a recently passed ureter stone or infectious in nature from urinary tract infection. * Wall thickening of the urinary bladder with adjacent edema to the fat. Causes such as cystitis are within the differential. * Nonobstructive right renal stone. * Mild prominence the wall the distal esophagus which could be from lack of distention but would correlate with symptoms given that a pathologic cause such as esophagitis is not excluded. Esophageal mass would be less likely in a patient of this age unless they have risk factors. Electronically signed by: Basia Dias MD (04/03/2021 5:40 PM) [id number] DICTATED and SIGNED BY: BASIA DIAS MD DATE: 04/03/21 [id number] Procedure Result BLOOD CULTURE Preliminary NO GROWTH AFTER 2 DAYS Laboratory Tests Test 04/05/21 11:44 04/05/21 14:09 04/05/21 15:09 04/05/21 16:55 Glucose (Fingerstick) 255 mg/dL (70-99) 278 mg/dL (70-99) 225 mg/dL (70-99) 208 mg/dL (70-99) Test 04/05/21 18:02 04/05/21 19:26 04/05/21 20:26 04/05/21 21:15 Glucose (Fingerstick) 197 mg/dL (70-99) 189 mg/dL (70-99) 171 mg/dL (70-99) 175 mg/dL (70-99) Test 04/05/21 22:22 04/05/21 23:30 04/06/21 00:39 04/06/21 01:56 Glucose (Fingerstick) 145 mg/dL (70-99) 117 mg/dL (70-99) 111 mg/dL (70-99) 131 mg/dL (70-99) Test 04/06/21 02:51 04/06/21 04:10 04/06/21 04:52 04/06/21 06:20 Glucose (Fingerstick) 131 mg/dL (70-99) 122 mg/dL (70-99) 129 mg/dL (70-99) 118 mg/dL (70-99) Test 04/06/21 07:27 04/06/21 07:52 04/06/21 07:54 04/06/21 08:34 Glucose (Fingerstick) 151 mg/dL (70-99) 171 mg/dL (70-99) 162 mg/dL (70-99) White Blood Count 14.6 x10^3/uL (4.0-11.0) Red Blood Count 4.21 x10^6/uL (3.50-5.40) Hemoglobin 12.4 g/dL (12.0-15.5) Hematocrit 36.9 % (36.0-47.0) Mean Corpuscular Volume 88 fL (79-100) Mean Corpuscular Hemoglobin 29 pg (25-35) Mean Corpuscular Hemoglobin Concent 34 g/dL (31-37) Red Cell Distribution Width 13.6 % (11.5-14.5) Platelet Count 366 x10^3/uL (140-400) Neutrophils (%) (Auto) 81 % (31-73) Lymphocytes (%) (Auto) 8 % (24-48) Monocytes (%) (Auto) 9 % (0-9) Eosinophils (%) (Auto) 1 % (0-3) Basophils (%) (Auto) 1 % (0-3) Neutrophils # (Auto) 11.8 x10^3/uL (1.8-7.7) Lymphocytes # (Auto) 1.2 x10^3/uL (1.0-4.8) Monocytes # (Auto) 1.3 x10^3/uL (0.0-1.1) Eosinophils # (Auto) 0.1 x10^3/uL (0.0-0.7) Basophils # (Auto) 0.2 x10^3/uL (0.0-0.2) Test 04/06/21 09:36 04/06/21 10:00 Glucose (Fingerstick) 153 mg/dL (70-99) Sodium Level 136 mmol/L (136-145) Potassium Level 2.6 mmol/L (3.5-5.1) Chloride Level 103 mmol/L (98-107) Carbon Dioxide Level 21 mmol/L (21-32) Anion Gap 12 (6-14) Blood Urea Nitrogen 15 mg/dL (7-20) Creatinine 0.8 mg/dL (0.6-1.0) Estimated GFR (Cockcroft-Gault) 77.6 BUN/Creatinine Ratio 19 (6-20) Glucose Level 159 mg/dL (70-99) Calcium Level 8.8 mg/dL (8.5-10.1) Total Bilirubin 0.3 mg/dL (0.2-1.0) Aspartate Amino Transf (AST/SGOT) 8 U/L (15-37) Alanine Aminotransferase (ALT/SGPT) 14 U/L (14-59) Alkaline Phosphatase 105 U/L (46-116) Total Protein 6.4 g/dL (6.4-8.2) Albumin 2.2 g/dL (3.4-5.0) Albumin/Globulin Ratio 0.5 (1.0-1.7) Assessment and Plan Assessmemt and Plan Problems Medical Problems: (1) Acute kidney injury Status: Acute (2) Acute pyelonephritis Status: Acute (3) DKA (diabetic ketoacidosis) Status: Acute (4) Sepsis Status: Acute Comment Review of Relevant I have reviewed the following items hayde (where applicable) has been applied. Labs Laboratory Tests Test 04/04/21 13:00 04/04/21 14:55 04/04/21 16:47 04/04/21 19:38 Glucose (Fingerstick) 115 mg/dL (70-99) 87 mg/dL (70-99) 100 mg/dL (70-99) 189 mg/dL (70-99) Test 04/05/21 06:30 04/05/21 08:28 04/05/21 11:05 04/05/21 11:44 White Blood Count 21.2 x10^3/uL (4.0-11.0) Red Blood Count 4.54 x10^6/uL (3.50-5.40) Hemoglobin 13.6 g/dL (12.0-15.5) Hematocrit 42.2 % (36.0-47.0) Mean Corpuscular Volume 93 fL (79-100) Mean Corpuscular Hemoglobin 30 pg (25-35) Mean Corpuscular Hemoglobin Concent 32 g/dL (31-37) Red Cell Distribution Width 13.8 % (11.5-14.5) Platelet Count 354 x10^3/uL (140-400) Neutrophils (%) (Auto) 85 % (31-73) Lymphocytes (%) (Auto) 5 % (24-48) Monocytes (%) (Auto) 9 % (0-9) Eosinophils (%) (Auto) 0 % (0-3) Basophils (%) (Auto) 1 % (0-3) Neutrophils # (Auto) 18.1 x10^3/uL (1.8-7.7) Lymphocytes # (Auto) 1.1 x10^3/uL (1.0-4.8) Monocytes # (Auto) 1.8 x10^3/uL (0.0-1.1) Eosinophils # (Auto) 0.0 x10^3/uL (0.0-0.7) Basophils # (Auto) 0.1 x10^3/uL (0.0-0.2) Sodium Level 135 mmol/L (136-145) Potassium Level 4.2 mmol/L (3.5-5.1) Chloride Level 104 mmol/L (98-107) Carbon Dioxide Level 7 mmol/L (21-32) Anion Gap 24 (6-14) Blood Urea Nitrogen 21 mg/dL (7-20) Creatinine 1.0 mg/dL (0.6-1.0) Estimated GFR (Cockcroft-Gault) 60.0 BUN/Creatinine Ratio 21 (6-20) Glucose Level 258 mg/dL (70-99) Hemoglobin A1c 13.5 % (4.8-5.6) Calcium Level 9.2 mg/dL (8.5-10.1) Phosphorus Level 2.9 mg/dL (2.6-4.7) Total Bilirubin 0.2 mg/dL (0.2-1.0) Aspartate Amino Transf (AST/SGOT) 17 U/L (15-37) Alanine Aminotransferase (ALT/SGPT) 17 U/L (14-59) Alkaline Phosphatase 122 U/L (46-116) C-Reactive Protein, Quantitative 149.0 mg/L (0-3.3) Total Protein 7.0 g/dL (6.4-8.2) Albumin 2.5 g/dL (3.4-5.0) Albumin/Globulin Ratio 0.6 (1.0-1.7) Glucose (Fingerstick) 270 mg/dL (70-99) 255 mg/dL (70-99) Lactic Acid Level 0.9 mmol/L (0.4-2.0) Acetone Level Sm pos (NEG) Test 04/05/21 14:09 04/05/21 15:09 04/05/21 16:55 04/05/21 18:02 Glucose (Fingerstick) 278 mg/dL (70-99) 225 mg/dL (70-99) 208 mg/dL (70-99) 197 mg/dL (70-99) Test 04/05/21 19:26 04/05/21 20:26 04/05/21 21:15 04/05/21 22:22 Glucose (Fingerstick) 189 mg/dL (70-99) 171 mg/dL (70-99) 175 mg/dL (70-99) 145 mg/dL (70-99) Test 04/05/21 23:30 04/06/21 00:39 04/06/21 01:56 04/06/21 02:51 Glucose (Fingerstick) 117 mg/dL (70-99) 111 mg/dL (70-99) 131 mg/dL (70-99) 131 mg/dL (70-99) Test 04/06/21 04:10 04/06/21 04:52 04/06/21 06:20 04/06/21 07:27 Glucose (Fingerstick) 122 mg/dL (70-99) 129 mg/dL (70-99) 118 mg/dL (70-99) 151 mg/dL (70-99) Test 04/06/21 07:52 04/06/21 07:54 04/06/21 08:34 04/06/21 09:36 Glucose (Fingerstick) 171 mg/dL (70-99) 162 mg/dL (70-99) 153 mg/dL (70-99) White Blood Count 14.6 x10^3/uL (4.0-11.0) Red Blood Count 4.21 x10^6/uL (3.50-5.40) Hemoglobin 12.4 g/dL (12.0-15.5) Hematocrit 36.9 % (36.0-47.0) Mean Corpuscular Volume 88 fL (79-100) Mean Corpuscular Hemoglobin 29 pg (25-35) Mean Corpuscular Hemoglobin Concent 34 g/dL (31-37) Red Cell Distribution Width 13.6 % (11.5-14.5) Platelet Count 366 x10^3/uL (140-400) Neutrophils (%) (Auto) 81 % (31-73) Lymphocytes (%) (Auto) 8 % (24-48) Monocytes (%) (Auto) 9 % (0-9) Eosinophils (%) (Auto) 1 % (0-3) Basophils (%) (Auto) 1 % (0-3) Neutrophils # (Auto) 11.8 x10^3/uL (1.8-7.7) Lymphocytes # (Auto) 1.2 x10^3/uL (1.0-4.8) Monocytes # (Auto) 1.3 x10^3/uL (0.0-1.1) Eosinophils # (Auto) 0.1 x10^3/uL (0.0-0.7) Basophils # (Auto) 0.2 x10^3/uL (0.0-0.2) Test 04/06/21 10:00 Sodium Level 136 mmol/L (136-145) Potassium Level 2.6 mmol/L (3.5-5.1) Chloride Level 103 mmol/L (98-107) Carbon Dioxide Level 21 mmol/L (21-32) Anion Gap 12 (6-14) Blood Urea Nitrogen 15 mg/dL (7-20) Creatinine 0.8 mg/dL (0.6-1.0) Estimated GFR (Cockcroft-Gault) 77.6 BUN/Creatinine Ratio 19 (6-20) Glucose Level 159 mg/dL (70-99) Calcium Level 8.8 mg/dL (8.5-10.1) Total Bilirubin 0.3 mg/dL (0.2-1.0) Aspartate Amino Transf (AST/SGOT) 8 U/L (15-37) Alanine Aminotransferase (ALT/SGPT) 14 U/L (14-59) Alkaline Phosphatase 105 U/L (46-116) Total Protein 6.4 g/dL (6.4-8.2) Albumin 2.2 g/dL (3.4-5.0) Albumin/Globulin Ratio 0.5 (1.0-1.7) Laboratory Tests Test 04/05/21 11:44 04/05/21 14:09 04/05/21 15:09 04/05/21 16:55 Glucose (Fingerstick) 255 mg/dL (70-99) 278 mg/dL (70-99) 225 mg/dL (70-99) 208 mg/dL (70-99) Test 04/05/21 18:02 04/05/21 19:26 04/05/21 20:26 04/05/21 21:15 Glucose (Fingerstick) 197 mg/dL (70-99) 189 mg/dL (70-99) 171 mg/dL (70-99) 175 mg/dL (70-99) Test 04/05/21 22:22 04/05/21 23:30 04/06/21 00:39 04/06/21 01:56 Glucose (Fingerstick) 145 mg/dL (70-99) 117 mg/dL (70-99) 111 mg/dL (70-99) 131 mg/dL (70-99) Test 04/06/21 02:51 04/06/21 04:10 04/06/21 04:52 04/06/21 06:20 Glucose (Fingerstick) 131 mg/dL (70-99) 122 mg/dL (70-99) 129 mg/dL (70-99) 118 mg/dL (70-99) Test 04/06/21 07:27 04/06/21 07:52 04/06/21 07:54 04/06/21 08:34 Glucose (Fingerstick) 151 mg/dL (70-99) 171 mg/dL (70-99) 162 mg/dL (70-99) White Blood Count 14.6 x10^3/uL (4.0-11.0) Red Blood Count 4.21 x10^6/uL (3.50-5.40) Hemoglobin 12.4 g/dL (12.0-15.5) Hematocrit 36.9 % (36.0-47.0) Mean Corpuscular Volume 88 fL (79-100) Mean Corpuscular Hemoglobin 29 pg (25-35) Mean Corpuscular Hemoglobin Concent 34 g/dL (31-37) Red Cell Distribution Width 13.6 % (11.5-14.5) Platelet Count 366 x10^3/uL (140-400) Neutrophils (%) (Auto) 81 % (31-73) Lymphocytes (%) (Auto) 8 % (24-48) Monocytes (%) (Auto) 9 % (0-9) Eosinophils (%) (Auto) 1 % (0-3) Basophils (%) (Auto) 1 % (0-3) Neutrophils # (Auto) 11.8 x10^3/uL (1.8-7.7) Lymphocytes # (Auto) 1.2 x10^3/uL (1.0-4.8) Monocytes # (Auto) 1.3 x10^3/uL (0.0-1.1) Eosinophils # (Auto) 0.1 x10^3/uL (0.0-0.7) Basophils # (Auto) 0.2 x10^3/uL (0.0-0.2) Test 04/06/21 09:36 04/06/21 10:00 Glucose (Fingerstick) 153 mg/dL (70-99) Sodium Level 136 mmol/L (136-145) Potassium Level 2.6 mmol/L (3.5-5.1) Chloride Level 103 mmol/L (98-107) Carbon Dioxide Level 21 mmol/L (21-32) Anion Gap 12 (6-14) Blood Urea Nitrogen 15 mg/dL (7-20) Creatinine 0.8 mg/dL (0.6-1.0) Estimated GFR (Cockcroft-Gault) 77.6 BUN/Creatinine Ratio 19 (6-20) Glucose Level 159 mg/dL (70-99) Calcium Level 8.8 mg/dL (8.5-10.1) Total Bilirubin 0.3 mg/dL (0.2-1.0) Aspartate Amino Transf (AST/SGOT) 8 U/L (15-37) Alanine Aminotransferase (ALT/SGPT) 14 U/L (14-59) Alkaline Phosphatase 105 U/L (46-116) Total Protein 6.4 g/dL (6.4-8.2) Albumin 2.2 g/dL (3.4-5.0) Albumin/Globulin Ratio 0.5 (1.0-1.7) Microbiology 04/03/21 Blood Culture - Preliminary, Resulted NO GROWTH AFTER 2 DAYS 04/03/21 Urine Culture - Final, Complete Medications Current Medications Sodium Chloride 1,000 ml @ 1,000 mls/hr 1X ONCE IV Last administered on 04/03/21at 17:01; Start 04/03/21 at 16:30; Stop 04/03/21 at 17:29; Status DC Morphine Sulfate (Morphine Sulfate) 4 mg PRN Q15MIN PRN IV/SQ PAIN GREATER THAN 3/10 Last administered on 04/04/21at 08:24; Start 04/03/21 at 16:30; Stop 04/04/21 at 16:29; Status DC Ondansetron HCl (Zofran) 4 mg 1X ONCE IVP Last administered on 04/03/21at 17:00; Start 04/03/21 at 16:30; Stop 04/03/21 at 16:37; Status DC Sodium Chloride 1,000 ml @ 1,000 mls/hr 1X ONCE IV Last administered on 04/03/21at 19:37; Start 04/03/21 at 17:30; Stop 04/03/21 at 18:29; Status DC Levofloxacin/ Dextrose 100 ml @ 100 mls/hr 1X ONCE IV Last administered on 04/03/21at 19:22; Start 04/03/21 at 18:00; Stop 04/03/21 at 18:59; Status DC Sodium Chloride 1,000 ml @ 150 mls/hr CONT PRN IV SEE I/O RECORD Last administered on 04/05/21at 12:54; Start 04/03/21 at 19:00; Stop 04/05/21 at 14:17; Status DC Sodium Chloride 1,000 ml @ 500 mls/hr Q2H IV Last administered on 04/03/21at 21:13; Start 04/03/21 at 19:00; Stop 04/03/21 at 20:59; Status DC Insulin Human Regular 100 unit/ Sodium Chloride 101 ml @ 0 mls/hr CONT PRN PRN IV PER PROTOCOL Last administered on 04/04/21at 09:42; Start 04/03/21 at 19:00; Stop 04/04/21 at 15:54; Status DC Potassium Chloride/Water 100 ml @ 100 mls/hr PRN Q1HR PRN IV SEE COMMENTS; Start 04/03/21 at 19:00 Potassium Chloride/Water 100 ml @ 100 mls/hr PRN Q1HR PRN IV SEE COMMENTS; Start 04/03/21 at 19:00 Potassium Chloride/Water 100 ml @ 100 mls/hr PRN Q1HR PRN IV SEE COMMENTS; Start 04/03/21 at 19:00 Insulin Human Regular 100 ml @ 9.77 mls/hr 1X ONCE IV Last administered on 04/03/21at 21:11; Start 04/03/21 at 20:15; Stop 04/03/21 at 20:16; Status DC Ondansetron HCl (Zofran) 4 mg PRN Q8HRS PRN IVP NAUSEA/VOMITING; Start 04/03/21 at 21:30; Stop 04/04/21 at 21:29; Status DC Morphine Sulfate (Morphine Sulfate) 4 mg PRN Q2HR PRN IVP PAIN Last administered on 04/04/21at 02:10; Start 04/03/21 at 21:30; Stop 04/04/21 at 21:29; Status DC Tamsulosin HCl (Flomax) 0.4 mg DAILY PO Last administered on 04/06/21at 09:15; Start 04/04/21 at 09:00 Hydralazine HCl (Apresoline Inj) 10 mg PRN Q4HRS PRN IVP ELEVATED BP, SEE COMMENTS; Start 04/03/21 at 23:00 Fentanyl Citrate (Fentanyl 2ml Vial) 25 mcg PRN Q3HRS PRN IVP SEVERE PAIN 7-10 Last administered on 04/06/21at 06:05; Start 04/03/21 at 23:00 Olanzapine (ZyPREXA ZYDIS) 5 mg PRN BID PRN PO ANXIETY / AGITATION; Start 04/03/21 at 23:00 Ceftriaxone Sodium (Rocephin) 2 gm Q24H IVP Last administered on 04/05/21at 23:57; Start 04/03/21 at 23:15 Insulin Human Lispro (HumaLOG) 0-7 UNITS TIDWMEALS SQ Last administered on 04/05/21at 09:24; Start 04/04/21 at 17:00 Dextrose (Dextrose 50%-Water Syringe) 12.5 gm PRN Q15MIN PRN IV SEE COMMENTS; Start 04/04/21 at 16:00 Insulin Glargine (Lantus Syringe) 10 unit QHS SQ Last administered on 04/05/21at 22:19; Start 04/05/21 at 21:00 Ondansetron HCl (Zofran) 4 mg PRN Q4HRS PRN IVP NAUSEA/VOMITING; Start 04/05/21 at 10:15 Insulin Human Regular 100 unit/ Sodium Chloride 101 ml @ 0 mls/hr CONT PRN IV SEE I/O RECORD Last administered on 04/05/21at 12:52; Start 04/05/21 at 10:30 Sodium Bicarbonate 150 meq/Dextrose 1,150 ml @ 125 mls/hr 1X ONCE IV Last administered on 04/05/21at 15:12; Start 04/05/21 at 14:30; Stop 04/05/21 at 23:41; Status DC Acetaminophen (Tylenol) 650 mg PRN Q6HRS PRN PO MILD PAIN / TEMP > 100.3'F Last administered on 04/06/21at 05:51; Start 04/05/21 at 20:00 Lidocaine (Lidoderm) 1 patch DAILY TD Last administered on 04/06/21at 09:15; Start 04/05/21 at 20:00 Miscellaneous (Lidoderm Patch Removal) 1 ea QHS MC ; Start 04/05/21 at 21:00 Potassium Chloride (Klor-Con) 40 meq 1X ONCE PO ; Start 04/06/21 at 11:30; Stop 04/06/21 at 11:31 Active Scripts Active Reported [Delta 8] [Cbd] Vitals/I & O Vital Sign - Last 24 Hours 04/05/21 04/05/21 04/05/21 04/05/21 14:05 14:35 15:00 19:00 Temp 98.0 98.7 98.0 98.7 Pulse 92 89 Resp 19 19 18 24 B/P (MAP) 106/62 (77) 118/67 (84) Pulse Ox 94 94 98 99 O2 Delivery Room Air Room Air Room Air Room Air 04/05/21 04/05/21 04/05/21 04/05/21 20:03 22:16 23:06 23:52 Temp 98.4 98.4 Pulse 82 Resp 18 20 18 B/P (MAP) 141/67 (91) Pulse Ox 99 99 99 O2 Delivery Room Air Room Air Room Air Room Air 04/06/21 04/06/21 04/06/21 04/06/21 02:19 02:52 03:00 06:05 Temp 98.8 98.8 Pulse 80 Resp 18 18 24 18 B/P (MAP) 133/68 (89) Pulse Ox 99 98 98 O2 Delivery Room Air Room Air Room Air Room Air 04/06/21 04/06/21 06:36 07:00 Temp 98.6 98.6 Pulse 88 Resp 18 20 B/P (MAP) 121/74 (90) Pulse Ox 98 98 O2 Delivery Room Air Room Air Intake and Output 04/05/21 04/05/21 04/06/21 15:00 23:00 07:00 Intake Total 0 ml 0 ml Output Total 1050 ml Balance 0 ml -1050 ml Justicifation of Admission Dx: Justifications for Admission: Justification of Admission Dx: Yes Sepsis: Infection KO ARCHER MD Apr 06, 2021 11:14
[2021-04-06] MEDS ORDERED: POTASSIUM CHLORIDE 20 MEQ TABLET.ER. PO ONE (11:30)
--- NOTE | 2021-04-06 12:42 | PDOC ---
PROGRESS NOTES Date of Service DATE: 04/06/21 TIME: 12:41 Subjective Subjective SEEN IN FOLLOW UP OF ARF WITH PYELONEPHRITIS Objective Objective Vital Signs Date Time Temp Pulse Resp B/P (MAP) Pulse Ox O2 Delivery O2 Flow Rate FiO2 04/06/21 11:00 99.0 78 20 112/75 (87) 99 Room Air 99.0 Intake and Output 04/06/21 07:00 Intake Total 0 ml Output Total 1050 ml Balance -1050 ml Intake Oral 0 ml Output Urine Total 1050 ml # Voids 1 Physical Exam Heart: Regular rate, Normal S1, Normal S2, No murmurs, Gallops Extremities: No clubbing, No cyanosis, No edema, Normal pulses, No tenderness/swelling General: Alert, Oriented X3, Cooperative, No acute distress Lungs: Clear to auscultation, Normal air movement Psych/Mental Status: Mental status NL, Mood NL Diagnosis RENAL FAILURE: Acute (Acute tubular necrosis) Assessment Assessment Problems Medical Problems: (1) Acute kidney injury Status: Acute (2) Acute pyelonephritis Status: Acute (3) DKA (diabetic ketoacidosis) Status: Acute (4) Sepsis Status: Acute Plan Plan of Care ACUTE RENAL FAILURE IS RESOLVING. CONT FLUIDS AND ANTIBIOTICS. WILL SIGN OF Comment Review of Relevant I have reviewed the following items hayde (where applicable) has been applied. Labs Laboratory Tests Test 04/04/21 13:00 04/04/21 14:55 04/04/21 16:47 04/04/21 19:38 Glucose (Fingerstick) 115 mg/dL (70-99) 87 mg/dL (70-99) 100 mg/dL (70-99) 189 mg/dL (70-99) Test 04/05/21 06:30 04/05/21 08:28 04/05/21 11:05 04/05/21 11:44 White Blood Count 21.2 x10^3/uL (4.0-11.0) Red Blood Count 4.54 x10^6/uL (3.50-5.40) Hemoglobin 13.6 g/dL (12.0-15.5) Hematocrit 42.2 % (36.0-47.0) Mean Corpuscular Volume 93 fL (79-100) Mean Corpuscular Hemoglobin 30 pg (25-35) Mean Corpuscular Hemoglobin Concent 32 g/dL (31-37) Red Cell Distribution Width 13.8 % (11.5-14.5) Platelet Count 354 x10^3/uL (140-400) Neutrophils (%) (Auto) 85 % (31-73) Lymphocytes (%) (Auto) 5 % (24-48) Monocytes (%) (Auto) 9 % (0-9) Eosinophils (%) (Auto) 0 % (0-3) Basophils (%) (Auto) 1 % (0-3) Neutrophils # (Auto) 18.1 x10^3/uL (1.8-7.7) Lymphocytes # (Auto) 1.1 x10^3/uL (1.0-4.8) Monocytes # (Auto) 1.8 x10^3/uL (0.0-1.1) Eosinophils # (Auto) 0.0 x10^3/uL (0.0-0.7) Basophils # (Auto) 0.1 x10^3/uL (0.0-0.2) Sodium Level 135 mmol/L (136-145) Potassium Level 4.2 mmol/L (3.5-5.1) Chloride Level 104 mmol/L (98-107) Carbon Dioxide Level 7 mmol/L (21-32) Anion Gap 24 (6-14) Blood Urea Nitrogen 21 mg/dL (7-20) Creatinine 1.0 mg/dL (0.6-1.0) Estimated GFR (Cockcroft-Gault) 60.0 BUN/Creatinine Ratio 21 (6-20) Glucose Level 258 mg/dL (70-99) Hemoglobin A1c 13.5 % (4.8-5.6) Calcium Level 9.2 mg/dL (8.5-10.1) Phosphorus Level 2.9 mg/dL (2.6-4.7) Total Bilirubin 0.2 mg/dL (0.2-1.0) Aspartate Amino Transf (AST/SGOT) 17 U/L (15-37) Alanine Aminotransferase (ALT/SGPT) 17 U/L (14-59) Alkaline Phosphatase 122 U/L (46-116) C-Reactive Protein, Quantitative 149.0 mg/L (0-3.3) Total Protein 7.0 g/dL (6.4-8.2) Albumin 2.5 g/dL (3.4-5.0) Albumin/Globulin Ratio 0.6 (1.0-1.7) Glucose (Fingerstick) 270 mg/dL (70-99) 255 mg/dL (70-99) Lactic Acid Level 0.9 mmol/L (0.4-2.0) Acetone Level Sm pos (NEG) Test 04/05/21 14:09 04/05/21 15:09 04/05/21 16:55 04/05/21 18:02 Glucose (Fingerstick) 278 mg/dL (70-99) 225 mg/dL (70-99) 208 mg/dL (70-99) 197 mg/dL (70-99) Test 04/05/21 19:26 04/05/21 20:26 04/05/21 21:15 04/05/21 22:22 Glucose (Fingerstick) 189 mg/dL (70-99) 171 mg/dL (70-99) 175 mg/dL (70-99) 145 mg/dL (70-99) Test 04/05/21 23:30 04/06/21 00:39 04/06/21 01:56 04/06/21 02:51 Glucose (Fingerstick) 117 mg/dL (70-99) 111 mg/dL (70-99) 131 mg/dL (70-99) 131 mg/dL (70-99) Test 04/06/21 04:10 04/06/21 04:52 04/06/21 06:20 04/06/21 07:27 Glucose (Fingerstick) 122 mg/dL (70-99) 129 mg/dL (70-99) 118 mg/dL (70-99) 151 mg/dL (70-99) Test 04/06/21 07:52 04/06/21 07:54 04/06/21 08:34 04/06/21 09:36 Glucose (Fingerstick) 171 mg/dL (70-99) 162 mg/dL (70-99) 153 mg/dL (70-99) White Blood Count 14.6 x10^3/uL (4.0-11.0) Red Blood Count 4.21 x10^6/uL (3.50-5.40) Hemoglobin 12.4 g/dL (12.0-15.5) Hematocrit 36.9 % (36.0-47.0) Mean Corpuscular Volume 88 fL (79-100) Mean Corpuscular Hemoglobin 29 pg (25-35) Mean Corpuscular Hemoglobin Concent 34 g/dL (31-37) Red Cell Distribution Width 13.6 % (11.5-14.5) Platelet Count 366 x10^3/uL (140-400) Neutrophils (%) (Auto) 81 % (31-73) Lymphocytes (%) (Auto) 8 % (24-48) Monocytes (%) (Auto) 9 % (0-9) Eosinophils (%) (Auto) 1 % (0-3) Basophils (%) (Auto) 1 % (0-3) Neutrophils # (Auto) 11.8 x10^3/uL (1.8-7.7) Lymphocytes # (Auto) 1.2 x10^3/uL (1.0-4.8) Monocytes # (Auto) 1.3 x10^3/uL (0.0-1.1) Eosinophils # (Auto) 0.1 x10^3/uL (0.0-0.7) Basophils # (Auto) 0.2 x10^3/uL (0.0-0.2) Test 04/06/21 10:00 04/06/21 11:59 Sodium Level 136 mmol/L (136-145) Potassium Level 2.6 mmol/L (3.5-5.1) Chloride Level 103 mmol/L (98-107) Carbon Dioxide Level 21 mmol/L (21-32) Anion Gap 12 (6-14) Blood Urea Nitrogen 15 mg/dL (7-20) Creatinine 0.8 mg/dL (0.6-1.0) Estimated GFR (Cockcroft-Gault) 77.6 BUN/Creatinine Ratio 19 (6-20) Glucose Level 159 mg/dL (70-99) Calcium Level 8.8 mg/dL (8.5-10.1) Total Bilirubin 0.3 mg/dL (0.2-1.0) Aspartate Amino Transf (AST/SGOT) 8 U/L (15-37) Alanine Aminotransferase (ALT/SGPT) 14 U/L (14-59) Alkaline Phosphatase 105 U/L (46-116) Total Protein 6.4 g/dL (6.4-8.2) Albumin 2.2 g/dL (3.4-5.0) Albumin/Globulin Ratio 0.5 (1.0-1.7) Glucose (Fingerstick) 157 mg/dL (70-99) Laboratory Tests Test 04/05/21 14:09 04/05/21 15:09 04/05/21 16:55 04/05/21 18:02 Glucose (Fingerstick) 278 mg/dL (70-99) 225 mg/dL (70-99) 208 mg/dL (70-99) 197 mg/dL (70-99) Test 04/05/21 19:26 04/05/21 20:26 04/05/21 21:15 04/05/21 22:22 Glucose (Fingerstick) 189 mg/dL (70-99) 171 mg/dL (70-99) 175 mg/dL (70-99) 145 mg/dL (70-99) Test 04/05/21 23:30 04/06/21 00:39 04/06/21 01:56 04/06/21 02:51 Glucose (Fingerstick) 117 mg/dL (70-99) 111 mg/dL (70-99) 131 mg/dL (70-99) 131 mg/dL (70-99) Test 04/06/21 04:10 04/06/21 04:52 04/06/21 06:20 04/06/21 07:27 Glucose (Fingerstick) 122 mg/dL (70-99) 129 mg/dL (70-99) 118 mg/dL (70-99) 151 mg/dL (70-99) Test 04/06/21 07:52 04/06/21 07:54 04/06/21 08:34 04/06/21 09:36 Glucose (Fingerstick) 171 mg/dL (70-99) 162 mg/dL (70-99) 153 mg/dL (70-99) White Blood Count 14.6 x10^3/uL (4.0-11.0) Red Blood Count 4.21 x10^6/uL (3.50-5.40) Hemoglobin 12.4 g/dL (12.0-15.5) Hematocrit 36.9 % (36.0-47.0) Mean Corpuscular Volume 88 fL (79-100) Mean Corpuscular Hemoglobin 29 pg (25-35) Mean Corpuscular Hemoglobin Concent 34 g/dL (31-37) Red Cell Distribution Width 13.6 % (11.5-14.5) Platelet Count 366 x10^3/uL (140-400) Neutrophils (%) (Auto) 81 % (31-73) Lymphocytes (%) (Auto) 8 % (24-48) Monocytes (%) (Auto) 9 % (0-9) Eosinophils (%) (Auto) 1 % (0-3) Basophils (%) (Auto) 1 % (0-3) Neutrophils # (Auto) 11.8 x10^3/uL (1.8-7.7) Lymphocytes # (Auto) 1.2 x10^3/uL (1.0-4.8) Monocytes # (Auto) 1.3 x10^3/uL (0.0-1.1) Eosinophils # (Auto) 0.1 x10^3/uL (0.0-0.7) Basophils # (Auto) 0.2 x10^3/uL (0.0-0.2) Test 04/06/21 10:00 04/06/21 11:59 Sodium Level 136 mmol/L (136-145) Potassium Level 2.6 mmol/L (3.5-5.1) Chloride Level 103 mmol/L (98-107) Carbon Dioxide Level 21 mmol/L (21-32) Anion Gap 12 (6-14) Blood Urea Nitrogen 15 mg/dL (7-20) Creatinine 0.8 mg/dL (0.6-1.0) Estimated GFR (Cockcroft-Gault) 77.6 BUN/Creatinine Ratio 19 (6-20) Glucose Level 159 mg/dL (70-99) Calcium Level 8.8 mg/dL (8.5-10.1) Total Bilirubin 0.3 mg/dL (0.2-1.0) Aspartate Amino Transf (AST/SGOT) 8 U/L (15-37) Alanine Aminotransferase (ALT/SGPT) 14 U/L (14-59) Alkaline Phosphatase 105 U/L (46-116) Total Protein 6.4 g/dL (6.4-8.2) Albumin 2.2 g/dL (3.4-5.0) Albumin/Globulin Ratio 0.5 (1.0-1.7) Glucose (Fingerstick) 157 mg/dL (70-99) Microbiology 04/03/21 Blood Culture - Preliminary, Resulted NO GROWTH AFTER 2 DAYS 04/03/21 Urine Culture - Final, Complete Medications Current Medications Sodium Chloride 1,000 ml @ 1,000 mls/hr 1X ONCE IV Last administered on 04/03/21at 17:01; Start 04/03/21 at 16:30; Stop 04/03/21 at 17:29; Status DC Morphine Sulfate (Morphine Sulfate) 4 mg PRN Q15MIN PRN IV/SQ PAIN GREATER THAN 3/10 Last administered on 04/04/21at 08:24; Start 04/03/21 at 16:30; Stop 04/04/21 at 16:29; Status DC Ondansetron HCl (Zofran) 4 mg 1X ONCE IVP Last administered on 04/03/21at 17:00; Start 04/03/21 at 16:30; Stop 04/03/21 at 16:37; Status DC Sodium Chloride 1,000 ml @ 1,000 mls/hr 1X ONCE IV Last administered on 04/03/21at 19:37; Start 04/03/21 at 17:30; Stop 04/03/21 at 18:29; Status DC Levofloxacin/ Dextrose 100 ml @ 100 mls/hr 1X ONCE IV Last administered on 04/03/21at 19:22; Start 04/03/21 at 18:00; Stop 04/03/21 at 18:59; Status DC Sodium Chloride 1,000 ml @ 150 mls/hr CONT PRN IV SEE I/O RECORD Last administered on 04/05/21at 12:54; Start 04/03/21 at 19:00; Stop 04/05/21 at 14:17; Status DC Sodium Chloride 1,000 ml @ 500 mls/hr Q2H IV Last administered on 04/03/21at 21:13; Start 04/03/21 at 19:00; Stop 04/03/21 at 20:59; Status DC Insulin Human Regular 100 unit/ Sodium Chloride 101 ml @ 0 mls/hr CONT PRN PRN IV PER PROTOCOL Last administered on 04/04/21at 09:42; Start 04/03/21 at 19:00; Stop 04/04/21 at 15:54; Status DC Potassium Chloride/Water 100 ml @ 100 mls/hr PRN Q1HR PRN IV SEE COMMENTS; Start 04/03/21 at 19:00 Potassium Chloride/Water 100 ml @ 100 mls/hr PRN Q1HR PRN IV SEE COMMENTS; Start 04/03/21 at 19:00 Potassium Chloride/Water 100 ml @ 100 mls/hr PRN Q1HR PRN IV SEE COMMENTS; Start 04/03/21 at 19:00 Insulin Human Regular 100 ml @ 9.77 mls/hr 1X ONCE IV Last administered on 04/03/21at 21:11; Start 04/03/21 at 20:15; Stop 04/03/21 at 20:16; Status DC Ondansetron HCl (Zofran) 4 mg PRN Q8HRS PRN IVP NAUSEA/VOMITING; Start 04/03/21 at 21:30; Stop 04/04/21 at 21:29; Status DC Morphine Sulfate (Morphine Sulfate) 4 mg PRN Q2HR PRN IVP PAIN Last administered on 04/04/21at 02:10; Start 04/03/21 at 21:30; Stop 04/04/21 at 21:29; Status DC Tamsulosin HCl (Flomax) 0.4 mg DAILY PO Last administered on 04/06/21at 09:15; Start 04/04/21 at 09:00 Hydralazine HCl (Apresoline Inj) 10 mg PRN Q4HRS PRN IVP ELEVATED BP, SEE COMMENTS; Start 04/03/21 at 23:00 Fentanyl Citrate (Fentanyl 2ml Vial) 25 mcg PRN Q3HRS PRN IVP SEVERE PAIN 7-10 Last administered on 04/06/21at 06:05; Start 04/03/21 at 23:00 Olanzapine (ZyPREXA ZYDIS) 5 mg PRN BID PRN PO ANXIETY / AGITATION; Start 04/03/21 at 23:00 Ceftriaxone Sodium (Rocephin) 2 gm Q24H IVP Last administered on 04/05/21at 23:57; Start 04/03/21 at 23:15 Insulin Human Lispro (HumaLOG) 0-7 UNITS TIDWMEALS SQ Last administered on 04/05/21at 09:24; Start 04/04/21 at 17:00 Dextrose (Dextrose 50%-Water Syringe) 12.5 gm PRN Q15MIN PRN IV SEE COMMENTS; Start 04/04/21 at 16:00 Insulin Glargine (Lantus Syringe) 10 unit QHS SQ Last administered on 04/05/21at 22:19; Start 04/05/21 at 21:00 Ondansetron HCl (Zofran) 4 mg PRN Q4HRS PRN IVP NAUSEA/VOMITING; Start 04/05/21 at 10:15 Insulin Human Regular 100 unit/ Sodium Chloride 101 ml @ 0 mls/hr CONT PRN IV SEE I/O RECORD Last administered on 04/05/21at 12:52; Start 04/05/21 at 10:30 Sodium Bicarbonate 150 meq/Dextrose 1,150 ml @ 125 mls/hr 1X ONCE IV Last administered on 04/05/21at 15:12; Start 04/05/21 at 14:30; Stop 04/05/21 at 23:41; Status DC Acetaminophen (Tylenol) 650 mg PRN Q6HRS PRN PO MILD PAIN / TEMP > 100.3'F Last administered on 04/06/21at 11:56; Start 04/05/21 at 20:00 Lidocaine (Lidoderm) 1 patch DAILY TD Last administered on 04/06/21at 09:15; Start 04/05/21 at 20:00 Miscellaneous (Lidoderm Patch Removal) 1 ea QHS MC ; Start 04/05/21 at 21:00 Potassium Chloride (Klor-Con) 40 meq 1X ONCE PO Last administered on 04/06/21at 11:53; Start 04/06/21 at 11:30; Stop 04/06/21 at 11:31; Status DC Active Scripts Active Reported [Delta 8] [Cbd] Vitals/I & O Vital Sign - Last 24 Hours 04/05/21 04/05/21 04/05/21 04/05/21 14:05 14:35 15:00 19:00 Temp 98.0 98.7 98.0 98.7 Pulse 92 89 Resp 19 19 18 24 B/P (MAP) 106/62 (77) 118/67 (84) Pulse Ox 94 94 98 99 O2 Delivery Room Air Room Air Room Air Room Air 04/05/21 04/05/21 04/05/21 04/05/21 20:03 22:16 23:06 23:52 Temp 98.4 98.4 Pulse 82 Resp 18 20 18 B/P (MAP) 141/67 (91) Pulse Ox 99 99 99 O2 Delivery Room Air Room Air Room Air Room Air 04/06/21 04/06/21 04/06/21 04/06/21 02:19 02:52 03:00 06:05 Temp 98.8 98.8 Pulse 80 Resp 18 18 24 18 B/P (MAP) 133/68 (89) Pulse Ox 99 98 98 O2 Delivery Room Air Room Air Room Air Room Air 04/06/21 04/06/21 04/06/21 06:36 07:00 11:00 Temp 98.6 99.0 98.6 99.0 Pulse 88 78 Resp 18 20 20 B/P (MAP) 121/74 (90) 112/75 (87) Pulse Ox 98 98 99 O2 Delivery Room Air Room Air Room Air Intake and Output 04/05/21 04/05/21 04/06/21 15:00 23:00 07:00 Intake Total 0 ml 0 ml Output Total 1050 ml Balance 0 ml -1050 ml Justifications for Admission Other Justification ADRYAN PADGETT MD Apr 06, 2021 12:42
--- NOTE | 2021-04-06 13:14 | PDOC ---
Infectious Disease Note Subjective Subjective pt is feeling better ROS ROS no n/v/d/sob/fever Vital Sign Vital Signs Vital Signs Date Time Temp Pulse Resp B/P (MAP) Pulse Ox O2 Delivery O2 Flow Rate FiO2 04/06/21 11:00 99.0 78 20 112/75 (87) 99 Room Air 99.0 Physical Exam PHYSICAL EXAM GENERAL: Alert, oriented female, who does not look comfortable. Breathing dominguez, she is okay. HEENT: Both pupils are round and reacting. No conjunctival lesion. No lesion in the mouth. NECK: Supple, no JVP, no lymphadenopathy. LUNGS: Clear. HEART: S1, S2 regular. ABDOMEN: Soft, nontender. No rebound or guarding. No organomegaly. EXTREMITIES: No edema or cyanosis. SKIN: Unremarkable. NEUROLOGIC: The patient is alert, awake. Moves all the extremities. No focal deficit. Labs Lab Laboratory Tests Test 04/05/21 14:09 04/05/21 15:09 04/05/21 16:55 04/05/21 18:02 Glucose (Fingerstick) 278 mg/dL (70-99) 225 mg/dL (70-99) 208 mg/dL (70-99) 197 mg/dL (70-99) Test 04/05/21 19:26 04/05/21 20:26 04/05/21 21:15 04/05/21 22:22 Glucose (Fingerstick) 189 mg/dL (70-99) 171 mg/dL (70-99) 175 mg/dL (70-99) 145 mg/dL (70-99) Test 04/05/21 23:30 04/06/21 00:39 04/06/21 01:56 04/06/21 02:51 Glucose (Fingerstick) 117 mg/dL (70-99) 111 mg/dL (70-99) 131 mg/dL (70-99) 131 mg/dL (70-99) Test 04/06/21 04:10 04/06/21 04:52 04/06/21 06:20 04/06/21 07:27 Glucose (Fingerstick) 122 mg/dL (70-99) 129 mg/dL (70-99) 118 mg/dL (70-99) 151 mg/dL (70-99) Test 04/06/21 07:52 04/06/21 07:54 04/06/21 08:34 04/06/21 09:36 Glucose (Fingerstick) 171 mg/dL (70-99) 162 mg/dL (70-99) 153 mg/dL (70-99) White Blood Count 14.6 x10^3/uL (4.0-11.0) Red Blood Count 4.21 x10^6/uL (3.50-5.40) Hemoglobin 12.4 g/dL (12.0-15.5) Hematocrit 36.9 % (36.0-47.0) Mean Corpuscular Volume 88 fL (79-100) Mean Corpuscular Hemoglobin 29 pg (25-35) Mean Corpuscular Hemoglobin Concent 34 g/dL (31-37) Red Cell Distribution Width 13.6 % (11.5-14.5) Platelet Count 366 x10^3/uL (140-400) Neutrophils (%) (Auto) 81 % (31-73) Lymphocytes (%) (Auto) 8 % (24-48) Monocytes (%) (Auto) 9 % (0-9) Eosinophils (%) (Auto) 1 % (0-3) Basophils (%) (Auto) 1 % (0-3) Neutrophils # (Auto) 11.8 x10^3/uL (1.8-7.7) Lymphocytes # (Auto) 1.2 x10^3/uL (1.0-4.8) Monocytes # (Auto) 1.3 x10^3/uL (0.0-1.1) Eosinophils # (Auto) 0.1 x10^3/uL (0.0-0.7) Basophils # (Auto) 0.2 x10^3/uL (0.0-0.2) Test 04/06/21 10:00 04/06/21 11:59 04/06/21 13:04 Sodium Level 136 mmol/L (136-145) Potassium Level 2.6 mmol/L (3.5-5.1) Chloride Level 103 mmol/L (98-107) Carbon Dioxide Level 21 mmol/L (21-32) Anion Gap 12 (6-14) Blood Urea Nitrogen 15 mg/dL (7-20) Creatinine 0.8 mg/dL (0.6-1.0) Estimated GFR (Cockcroft-Gault) 77.6 BUN/Creatinine Ratio 19 (6-20) Glucose Level 159 mg/dL (70-99) Calcium Level 8.8 mg/dL (8.5-10.1) Total Bilirubin 0.3 mg/dL (0.2-1.0) Aspartate Amino Transf (AST/SGOT) 8 U/L (15-37) Alanine Aminotransferase (ALT/SGPT) 14 U/L (14-59) Alkaline Phosphatase 105 U/L (46-116) Total Protein 6.4 g/dL (6.4-8.2) Albumin 2.2 g/dL (3.4-5.0) Albumin/Globulin Ratio 0.5 (1.0-1.7) Glucose (Fingerstick) 157 mg/dL (70-99) 153 mg/dL (70-99) Micro Microbiology 04/03/21 Blood Culture - Preliminary, Resulted NO GROWTH AFTER 1 DAY 04/03/21 Urine Culture - Final, Complete Objective Assessment 1. Pyelonephritis and/or plus or minus passed ureteral stone. UC 10K strep agalactiae 2. Metabolic acidosis, most likely she is going back into diabetic ketoacidosis. 3. Leukocytosis. 4. Fibromyalgia. 5. Diabetes.Poorly controlled Plan Plan of Care continue Rocephin. follow cultures. Supportive care. YVONNE SAHNI MD Apr 06, 2021 13:14
[2021-04-06 14:18] LABS: BASE EXCESS COOX -5 mmol/L (-3-3); HCO3 COOX 16 mmol/L (21-28); METHEMOGLOBIN 0.5 % (0.0-1.9); OXYHEMOGLOBIN 97.7 %; PCO2 COOX 23 mmHg (35-46); PO2 COOX 114 mmHg (75-108); SAT O2 COOX 98 % (92-99)
[2021-04-06 15:00] VITALS: BP 118/73
[2021-04-06 19:00] VITALS: BP 135/81
[2021-04-06] MEDS: INSULIN GLARGINE SYRINGE. SQ SCH (20:31)
[2021-04-06] MEDS: PATCH REMOVAL. MC SCH (21:00)
[2021-04-06] MEDS: cefTRIAXone IV Push 2 GM VIAL. IVP SCH (21:57)
[2021-04-06 23:00] VITALS: BP 133/79
[2021-04-07 03:06] VITALS: BP 133/82
[2021-04-07] MEDS: ACETAMINOPHEN 325 MG TABLET. PO PRN (04:28)
[2021-04-07 07:00] VITALS: BP 123/79
[2021-04-07] MEDS: INSULIN LISPRO 300 UNITS/3 ML VIAL. SQ SCH ×3 (08:00→17:50)
[2021-04-07] MEDS: LIDOCAINE (700MG/PATCH) PATCH. TD SCH (08:43)
[2021-04-07] MEDS: TAMSULOSIN 0.4 MG CAP.ER.24H. PO SCH (08:43)
[2021-04-07 09:04] LABS: BASO # 0.1 x10^3/uL (0.0-0.2); BASO % 1 % (0-3); EOS # 0.1 x10^3/uL (0.0-0.7); EOS % 1 % (0-3); HEMATOCRIT 38.3 % (36.0-47.0); HEMOGLOBIN 13.4 g/dL (12.0-15.5); LYMPH % 20 % (24-48); MEAN CORPUSCULAR HEMOGLOBIN 30 pg (25-35); MEAN CORPUSCULAR HGB CONC 35 g/dL (31-37); MEAN CORPUSCULAR VOLUME 87 fL (79-100); MONO % 10 % (0-9); NEUT # 6.9 x10^3/uL (1.8-7.7); NEUT % 69 % (31-73); PLATELET COUNT 404 x10^3/uL (140-400); RED BLOOD COUNT 4.41 x10^6/uL (3.50-5.40); RED CELL DISTRIBUTION WIDTH 13.3 % (11.5-14.5); WHITE BLOOD COUNT 10.1 x10^3/uL (4.0-11.0)
[2021-04-07 09:33] LABS: ALBUMIN 2.1 g/dL (3.4-5.0); ALBUMIN/GLOBULIN RATIO 0.5 (1.0-1.7); CALCIUM 8.6 mg/dL (8.5-10.1); CREATININE 0.7 mg/dL (0.6-1.0); GFR 90.5; TOTAL BILIRUBIN 0.3 mg/dL (0.2-1.0); TOTAL PROTEIN 6.2 g/dL (6.4-8.2)
[2021-04-07 09:36] LABS: POTASSIUM 2.8 mmol/L (3.5-5.1)
--- NOTE | 2021-04-07 10:36 | PDOC ---
PROGRESS NOTES Date of Service: DATE: 04/07/21 TIME: 10:36 Chief Complaint Chief Complaint Images Images CT ABDOMEN PELVIS WO CONTRAST Mild prominence of the wall the distal esophagus which is not very distended. Abdominal aorta is not aneurysmal. Suspected small fat-containing inguinal hernia. Low-density within the liver at the falciform ligament commonly from focal fat. No peripancreatic fluid collection. The gallbladder is distended at time of exam. Splenic calcified granuloma. Left-sided moderate hydronephrosis and hydroureter with perinephric edema. There is a suspected 3 mm high density focus within the urinary bladder. Urinary bladder is decompressed with prominence the wall and some haziness of the adjacent fat. Nonobstructive right renal stone without right-sided hydronephrosis. No periappendiceal inflammatory changes. No dilated loops of bowel to suggest obstruction. Tiny fat-containing umbilical hernia. Degenerative changes the spine. Sclerosis at sacroiliac joints which can be seen with chronic sacroiliitis or degenerative changes. There is a similar appearance at the pubic symphysis. IMPRESSION: * Left-sided perinephric and periureteral edema with hydronephrosis and hydroureter. This could be either from a recently passed ureter stone or infectious in nature from urinary tract infection. * Wall thickening of the urinary bladder with adjacent edema to the fat. Causes such as cystitis are within the differential. * Nonobstructive right renal stone. * Mild prominence the wall the distal esophagus which could be from lack of distention but would correlate with symptoms given that a pathologic cause such as esophagitis is not excluded. Esophageal mass would be less likely in a patient of this age unless they have risk factors. VTE Prophylaxis Ordered VTE Prophylaxis Devices: No VTE Pharmacological Prophylaxi: Yes Assessment/Plan Assessment/Plan A/P: Left pyelonephritis - likely due to passed kidney stone. IV levaquin given PCN allergy with little likelihood of cephalosporin cross allergy will change to rocephin. IVF as well Sepsis - given empiric IVF, f/u urine and blood cultures, empiric levaquin for pyelo DKA - IVF insulin and fluids, npo except for water, nausea control. Can take PO and lantus when gap closes ALISHA - multifactorial, vasomotor nephropathy from dehydration 2/2 DKA and possibly some mild obstruction cleared on left Neuropathy - likely diabetic in nature given history of extremely poor control Cannabinoid positive - counseled on the safety and legality Hyponatremia - nutritional and DKA related, will monitor FEN - NPO PPX - heparin FULL CODE Dispo - inpatient RESTART INSULIN DRIP PROTOCOL 04-05 33 MIN CC TIME Justifications for Admission Justifications for Admission Other Justification History of Present Illness History of Present Illness identification/Chief Complaint Chief Complaint Abdominal pain Source Source: Caregiver, Chart review, Patient History of Present Illness History of Present Illness Ms Bryan is a 45yo female with PMHx DM2, nephrolithiasis, neuropathy who presents to the ED today complaining of dysuria for 1 week and severe bilateral flank pain, symptoms began 3 days ago. She is also complaining of nausea, vomiting which began today, 04/03/2021. Denies any fever, but does have chills. Significant other bedside notes that she has had episodic confusion prior to moving from [place] and has been to neurology initially though very early onset dementia. Of note her hemoglobin A1c has never been less than 14. Since we will continue this for years ago she was treated with nausea and vomiting that started 1 month woman as well as Trulicity. Struggled with follow-up and was going to the [facility] and stopped since the COVID-19 pandemic and has not seen a physician in the past year and half. She has never been hospitalized previously but has had outpatient treatment for nephrolithiasis with ESWL. WBC 27.3, Hb 15.7, platelets 156, NA 130, K4.3, chloride 94 HCO3 5 BUN 31, CR 1.5, BUN 13, glucose 467, magnesium 1.9, calcium 9.9, lactic acid 2.7, AST 9, bilirubin 0.4, ALT 10, alkaline phos is 140, albumin 3.6. UDS positive for cannabinoids. UA with large protein large glucose positive ketones positive blood positive leukocyte esterase moderate bacteria negative urine hCG. CT abdomen pelvis with left-sided perinephric and periureteral edema with hydronephrosis and hydroureter, wall thickening of the urinary bladder with adjacent edema to the fat and nonobstructive right renal stone. Given IVF, IV levofloxacin, IV insulin and admitted for further care Past Medical History Cardiovascular: HTN CENTRAL NERVOUS SYSTEM: Periperal neuropathy Renal/: Other (Nephrolithiasis) Endocrine: Diabetes Past Surgical History Past Surgical History: Other (D&C, ESWL) Family History Family History: Diabetes, High Cholestrol, Hypertension Social History Smoke: No ALCOHOL: none Drugs: Marijuana Current Medications Current Medications Current Medications Sodium Chloride 1,000 ml @ 1,000 mls/hr 1X ONCE IV Last administered on 04/03/21at 17:01; Start 04/03/21 at 16:30; Stop 04/03/21 at 17:29; Status DC Morphine Sulfate (Morphine Sulfate) 4 mg PRN Q15MIN PRN IV/SQ PAIN GREATER THAN 3/10 Last administered on 04/03/21at 17:01; Start 04/03/21 at 16:30; Stop 04/04/21 at 16:29 Ondansetron HCl (Zofran) 4 mg 1X ONCE IVP Last administered on 04/03/21at 17:00; Start 04/03/21 at 16:30; Stop 04/03/21 at 16:37; Status DC Sodium Chloride 1,000 ml @ 1,000 mls/hr 1X ONCE IV ; Start 04/03/21 at 17:30; Stop 04/03/21 at 18:29; Status DC Levofloxacin/ Dextrose 100 ml @ 100 mls/hr 1X ONCE IV ; Start 04/03/21 at 18:00; Stop 04/03/21 at 18:59 Allergies Allergies: Coded Allergies: naproxen (Verified Allergy, Intermediate, 04/03/21) GIB Penicillins (Verified Allergy, Unknown, 04/03/21) ROS General: YES: Chills, Night Sweats, Fatigue, Malaise; No: Appetite, Other PSYCHOLOGICAL ROS: YES: Anxiety, Disorientation, Irritablity, Memory difficulties, Mood Swings, Obsessive thoughts; No: Behavioral Disorder, Concentration difficultie, Decreased libido, Depression, Hallucinations, Hostility, Physical abuse, Sexual abuse, Sleep disturbances, Suicidal ideation, Other Eyes: Yes Blurry vision; No Decreased vision, No Double vision, No Dry eyes, No Excessive tearing, No Eye Pain, No Itchy Eyes, No Loss of vision, No Photophobia, No Scotomata, No Uses contacts, No Uses glasses, No Other HEENT: No: Heacaches, Visual Changes, Hearing change, Nasal congestion, Nasal discharge, Oral lesions, Sinus pain, Sore Throat, Epistaxis, Sneezing, Snoring, Tinnitus, Vertigo, Vocal changes, Other ALLERGY AND IMMUNOLOGY: No: Hives, Insect Bite Sensitivity, Itchy/Watery Eyes, Nasal Congestion, Post Nasal Drip, Seasonal Allergies, Other Hematological and Lymphatic: No: Bleeding Problems, Blood Clots, Blood Transfusions, Brusing, Night Sweats, Pallor, Swollen Lymph Nodes, Other ENDOCRINE: No: Breast Changes, Galactorrhea, Hair Pattern Changes, Hot Flashes, Malaise/lethargy, Mood Swings, Palpitations, Polydipsia/polyuria, Skin Changes, Temperature Intolerance, Unexpected Weight Changes, Other Breast: No New/Changing Breast Lumps, No Nipple changes, No Nipple discharge, No Other Respiratory: No: Cough, Hemoptysis, Orthopnea, Pleuritic Pain, Shortness of breath, SOB with excertion, Sputum Changes, Stridor, Tachypnea, Wheezing, Other Cardiovascular: No Chest Pain, No Palpitations, No Orthopnea, No Paroxysmal Noc. Dyspnea, No Edema, No Lt Headedness, No Other Gastrointestinal: Yes Nausea, Yes Abdominal Pain; No Vomiting, No Diarrhea, No Constipation, No Melena, No Hematochezia, No Other Genitourinary: YES Dysuria, YES Frequency, YES Retention, YES Urgency, YES Pain , YES Flank Pain; No Incontinence, No Hematuria, No Discharge, No Other, No , No , No , No , No , No , No Musculoskeletal: No Gait Disturbance, No Joint Pain, No Joint Stiffness, No Joint Swelling, No Muscle Pain, No Muscular Weakness, No Pain In:, No Swelling In:, No Other Neurological: Yes Memory Loss, Yes Numbness/Tingling; No Behavorial Changes, No Bowel/Bladder ControlChng, No Confusion, No Dizziness, No Gait Disturbance, No Headaches, No Impaired Coord/balance, No Seizures, No Speech Problems, No Tremors, No Visual Changes, No Weakness, No Other Skin: No Dry Skin, No Eczema, No Hair Changes, No Lumps, No Mole Changes, No Mottling, No Nail Changes, No Pruritus, No Rash, No Skin Lesion Changes, No Oth er, No Acne 04-04 Left pyelonephritis - passed kidney stone. IV levaquin given PCN allergy with little likelihood of cephalosporin cross allergy will change to rocephin. IVF as well Left-sided moderate hydronephrosis and hydroureter with perinephric edema. There is a suspected 3 mm high density focus within the urinary bladder. Urinary bladder is decompressed with prominence the wall and some haziness of the adjacent fat. Nonobstructive right renal stone without right-sided hydronephrosis. Sepsis - given empiric IVF, f/u urine and blood cultures, empiric levaquin for pyelo DKA - IVF insulin and fluids, npo except for water, nausea control. Can take PO and lantus when gap closes ALISHA - multifactorial, vasomotor nephropathy from dehydration 2/2 DKA and possi radha some mild obstruction cleared on left Neuropathy - likely diabetic in nature given history of extremely poor control Cannabinoid positive - counseled on the safety and legality Hyponatremia - nutritional and DKA related D/W RN ID CONSULT 37 min pt exam, chart review, > 50% of time spent with exam, chart review, pt care coordination 04-05 Mild prominence the wall the distal esophagus which could be from lack of distention but would correlate with symptoms given that a pathologic cause such as esophagitis Left pyelonephritis - passed kidney stone. IV levaquin given PCN allergy with little likelihood of cephalosporin cross allergy will change to rocephin. IVF as well Left-sided moderate hydronephrosis and hydroureter with perinephric edema. There is a suspected 3 mm high density focus within the urinary bladder. Urinary bladder is decompressed with prominence the wall and some haziness of the adjacent fat. Nonobstructive right renal stone without right-sided hydronephrosis. Sepsis - given empiric IVF, f/u urine and blood cultures, empiric levaquin for pyelo DKA - IVF insulin and fluids, npo except for water, nausea control. Can take PO and lantus when gap closes ALISHA - multifactorial, vasomotor nephropathy from dehydration 2/2 DKA and possibly some mild obstruction cleared on left Neuropathy - likely diabetic in nature given history of extremely poor control Cannabinoid positive - counseled on the safety and legality Hyponatremia - nutritional and DKA related D/W RN ID CONSULT NEPHROLOGY CONSULT 36 min pt exam, chart review, > 50% of time spent with exam, chart review, pt care coordination 04-06 k=2.6, replaced ALISHA - multifactorial, vasomotor nephropathy from dehydration 2/2 DKA and possibly some mild obstruction cleared on left Mild prominence the wall the distal esophagus which could be from lack of distention but would correlate with symptoms given that a pathologic cause such as esophagitis Left pyelonephritis - passed kidney stone. IV levaquin given PCN allergy with little likelihood of cephalosporin cross allergy will change to rocephin. IVF as well Left-sided moderate hydronephrosis and hydroureter with perinephric edema. There is a suspected 3 mm high density focus within the urinary bladder. Urinary bladder is decompressed with prominence the wall and some haziness of the adjacent fat. Nonobstructive right renal stone without right-sided hydronephrosis. Sepsis - given empiric IVF, f/u urine and blood cultures, empiric levaquin for pyelo DKA - IVF insulin and fluids, npo except for water, nausea control. Can take PO and lantus when gap closes ALISHA - multifactorial, vasomotor nephropathy from dehydration 2/2 DKA and possi radha some mild obstruction cleared on left Neuropathy - likely diabetic in nature given history of extremely poor control Cannabinoid positive - counseled on the safety and legality Hyponatremia - nutritional and DKA related D/W RN ID CONSULT NEPHROLOGY CONSULT renal us 04-06 pending 32 min cc time 04-07 k=2.6, replaced ALISHA - multifactorial, vasomotor nephropathy from dehydration 2/2 DKA and possibly some mild obstruction cleared on left Mild prominence the wall the distal esophagus which could be from lack of distention but would correlate with symptoms given that a pathologic cause such as esophagitis Left pyelonephritis - passed kidney stone. IV levaquin given PCN allergy with little likelihood of cephalosporin cross allergy will change to rocephin. IVF as well Left-sided moderate hydronephrosis and hydroureter with perinephric edema. There is a suspected 3 mm high density focus within the urinary bladder. Urinary bladder is decompressed with prominence the wall and some haziness of the adjacent fat. Nonobstructive right renal stone without right-sided hydronephrosis. Sepsis - given empiric IVF, f/u urine and blood cultures, empiric levaquin for pyelo DKA - IVF insulin and fluids, npo except for water, nausea control. Can take PO and lantus when gap closes ALISHA - multifactorial, vasomotor nephropathy from dehydration 2/2 DKA and possibly some mild obstruction cleared on left Neuropathy - likely diabetic in nature given history of extremely poor control Cannabinoid positive - counseled on the safety and legality Hyponatremia - nutritional and DKA related D/W RN ID CONSULT NEPHROLOGY CONSULT renal us 04-06 D/C PLANNING 34 MIN D/W DR KAITLYN JONES FOR D/C TODAY PO KEFLEX X 10 DAYS Vitals Vitals Vital Signs Date Time Temp Pulse Resp B/P (MAP) Pulse Ox O2 Delivery O2 Flow Rate FiO2 04/07/21 07:00 98.8 75 20 123/79 (94) 98 Room Air 98.8 Physical Exam Physical Exam GENERAL: Alert, oriented female, who does not look comfortable. Breathing dominguez, she is okay. HEENT: Both pupils are round and reacting. No conjunctival lesion. No lesion in the mouth. NECK: Supple, no JVP, no lymphadenopathy. LUNGS: Clear. HEART: S1, S2 regular. ABDOMEN: Soft, nontender. No rebound or guarding. No organomegaly. EXTREMITIES: No edema or cyanosis. SKIN: Unremarkable. NEUROLOGIC: The patient is alert, awake. Moves all the extremities. No focal deficit. General: Alert, Oriented X3, Cooperative, No acute distress Heart: Regular rate, Normal S1, Normal S2, No murmurs, Gallops Abdomen: Normal bowel sounds, Soft Extremities: No clubbing, No cyanosis, No edema, Normal pulses, No tende rness/swelling Labs LABS Laboratory Tests Test 04/06/21 11:59 04/06/21 13:04 04/06/21 14:04 04/06/21 14:19 Glucose (Fingerstick) 157 mg/dL (70-99) 153 mg/dL (70-99) 153 mg/dL (70-99) O2 Saturation 98 % (92-99) Arterial Blood pH 7.47 (7.35-7.45) Arterial Blood pCO2 at Patient Temp 23 mmHg (35-46) Arterial Blood pO2 at Patient Temp 114 mmHg (75-108) Arterial Blood HCO3 16 mmol/L (21-28) Arterial Blood Base Excess -5 mmol/L (-3-3) Oxyhemoglobin 97.7 % Methemoglobin 0.5 % (0.0-1.9) Carbon Monoxide, Quantitative 0.2 % (0.0-1.9) FiO2 21 Test 04/06/21 16:21 04/06/21 18:06 04/06/21 20:33 04/06/21 22:54 Glucose (Fingerstick) 139 mg/dL (70-99) 147 mg/dL (70-99) 130 mg/dL (70-99) 196 mg/dL (70-99) Test 04/07/21 00:12 04/07/21 01:18 04/07/21 02:26 04/07/21 03:35 Glucose (Fingerstick) 173 mg/dL (70-99) 140 mg/dL (70-99) 172 mg/dL (70-99) 139 mg/dL (70-99) Test 04/07/21 04:42 04/07/21 05:55 04/07/21 06:50 04/07/21 07:48 Glucose (Fingerstick) 117 mg/dL (70-99) 114 mg/dL (70-99) 103 mg/dL (70-99) 121 mg/dL (70-99) Test 04/07/21 08:08 04/07/21 09:58 White Blood Count 10.1 x10^3/uL (4.0-11.0) Red Blood Count 4.41 x10^6/uL (3.50-5.40) Hemoglobin 13.4 g/dL (12.0-15.5) Hematocrit 38.3 % (36.0-47.0) Mean Corpuscular Volume 87 fL (79-100) Mean Corpuscular Hemoglobin 30 pg (25-35) Mean Corpuscular Hemoglobin Concent 35 g/dL (31-37) Red Cell Distribution Width 13.3 % (11.5-14.5) Platelet Count 404 x10^3/uL (140-400) Neutrophils (%) (Auto) 69 % (31-73) Lymphocytes (%) (Auto) 20 % (24-48) Monocytes (%) (Auto) 10 % (0-9) Eosinophils (%) (Auto) 1 % (0-3) Basophils (%) (Auto) 1 % (0-3) Neutrophils # (Auto) 6.9 x10^3/uL (1.8-7.7) Lymphocytes # (Auto) 2.0 x10^3/uL (1.0-4.8) Monocytes # (Auto) 1.0 x10^3/uL (0.0-1.1) Eosinophils # (Auto) 0.1 x10^3/uL (0.0-0.7) Basophils # (Auto) 0.1 x10^3/uL (0.0-0.2) Sodium Level 140 mmol/L (136-145) Potassium Level 2.8 mmol/L (3.5-5.1) Chloride Level 106 mmol/L (98-107) Carbon Dioxide Level 22 mmol/L (21-32) Anion Gap 12 (6-14) Blood Urea Nitrogen 8 mg/dL (7-20) Creatinine 0.7 mg/dL (0.6-1.0) Estimated GFR (Cockcroft-Gault) 90.5 BUN/Creatinine Ratio 11 (6-20) Glucose Level 118 mg/dL (70-99) Calcium Level 8.6 mg/dL (8.5-10.1) Total Bilirubin 0.3 mg/dL (0.2-1.0) Aspartate Amino Transf (AST/SGOT) 15 U/L (15-37) Alanine Aminotransferase (ALT/SGPT) 16 U/L (14-59) Alkaline Phosphatase 103 U/L (46-116) Total Protein 6.2 g/dL (6.4-8.2) Albumin 2.1 g/dL (3.4-5.0) Albumin/Globulin Ratio 0.5 (1.0-1.7) Glucose (Fingerstick) 157 mg/dL (70-99) Assessment and Plan Assessmemt and Plan Problems Medical Problems: (1) Acute kidney injury Status: Acute (2) Acute pyelonephritis Status: Acute (3) DKA (diabetic ketoacidosis) Status: Acute (4) Sepsis Status: Acute Comment Review of Relevant I have reviewed the following items hayde (where applicable) has been applied. Labs Laboratory Tests Test 04/05/21 11:05 04/05/21 11:44 04/05/21 14:09 04/05/21 15:09 Lactic Acid Level 0.9 mmol/L (0.4-2.0) Acetone Level Sm pos (NEG) Glucose (Fingerstick) 255 mg/dL (70-99) 278 mg/dL (70-99) 225 mg/dL (70-99) Test 04/05/21 16:55 04/05/21 18:02 04/05/21 19:26 04/05/21 20:26 Glucose (Fingerstick) 208 mg/dL (70-99) 197 mg/dL (70-99) 189 mg/dL (70-99) 171 mg/dL (70-99) Test 04/05/21 21:15 04/05/21 22:22 04/05/21 23:30 04/06/21 00:39 Glucose (Fingerstick) 175 mg/dL (70-99) 145 mg/dL (70-99) 117 mg/dL (70-99) 111 mg/dL (70-99) Test 04/06/21 01:56 04/06/21 02:51 04/06/21 04:10 04/06/21 04:52 Glucose (Fingerstick) 131 mg/dL (70-99) 131 mg/dL (70-99) 122 mg/dL (70-99) 129 mg/dL (70-99) Test 04/06/21 06:20 04/06/21 07:27 04/06/21 07:52 04/06/21 07:54 Glucose (Fingerstick) 118 mg/dL (70-99) 151 mg/dL (70-99) 171 mg/dL (70-99) White Blood Count 14.6 x10^3/uL (4.0-11.0) Red Blood Count 4.21 x10^6/uL (3.50-5.40) Hemoglobin 12.4 g/dL (12.0-15.5) Hematocrit 36.9 % (36.0-47.0) Mean Corpuscular Volume 88 fL (79-100) Mean Corpuscular Hemoglobin 29 pg (25-35) Mean Corpuscular Hemoglobin Concent 34 g/dL (31-37) Red Cell Distribution Width 13.6 % (11.5-14.5) Platelet Count 366 x10^3/uL (140-400) Neutrophils (%) (Auto) 81 % (31-73) Lymphocytes (%) (Auto) 8 % (24-48) Monocytes (%) (Auto) 9 % (0-9) Eosinophils (%) (Auto) 1 % (0-3) Basophils (%) (Auto) 1 % (0-3) Neutrophils # (Auto) 11.8 x10^3/uL (1.8-7.7) Lymphocytes # (Auto) 1.2 x10^3/uL (1.0-4.8) Monocytes # (Auto) 1.3 x10^3/uL (0.0-1.1) Eosinophils # (Auto) 0.1 x10^3/uL (0.0-0.7) Basophils # (Auto) 0.2 x10^3/uL (0.0-0.2) Test 04/06/21 08:34 04/06/21 09:36 04/06/21 10:00 04/06/21 11:59 Glucose (Fingerstick) 162 mg/dL (70-99) 153 mg/dL (70-99) 157 mg/dL (70-99) Sodium Level 136 mmol/L (136-145) Potassium Level 2.6 mmol/L (3.5-5.1) Chloride Level 103 mmol/L (98-107) Carbon Dioxide Level 21 mmol/L (21-32) Anion Gap 12 (6-14) Blood Urea Nitrogen 15 mg/dL (7-20) Creatinine 0.8 mg/dL (0.6-1.0) Estimated GFR (Cockcroft-Gault) 77.6 BUN/Creatinine Ratio 19 (6-20) Glucose Level 159 mg/dL (70-99) Calcium Level 8.8 mg/dL (8.5-10.1) Total Bilirubin 0.3 mg/dL (0.2-1.0) Aspartate Amino Transf (AST/SGOT) 8 U/L (15-37) Alanine Aminotransferase (ALT/SGPT) 14 U/L (14-59) Alkaline Phosphatase 105 U/L (46-116) Total Protein 6.4 g/dL (6.4-8.2) Albumin 2.2 g/dL (3.4-5.0) Albumin/Globulin Ratio 0.5 (1.0-1.7) Test 04/06/21 13:04 04/06/21 14:04 04/06/21 14:19 04/06/21 16:21 Glucose (Fingerstick) 153 mg/dL (70-99) 153 mg/dL (70-99) 139 mg/dL (70-99) O2 Saturation 98 % (92-99) Arterial Blood pH 7.47 (7.35-7.45) Arterial Blood pCO2 at Patient Temp 23 mmHg (35-46) Arterial Blood pO2 at Patient Temp 114 mmHg (75-108) Arterial Blood HCO3 16 mmol/L (21-28) Arterial Blood Base Excess -5 mmol/L (-3-3) Oxyhemoglobin 97.7 % Methemoglobin 0.5 % (0.0-1.9) Carbon Monoxide, Quantitative 0.2 % (0.0-1.9) FiO2 21 Test 04/06/21 18:06 04/06/21 20:33 04/06/21 22:54 04/07/21 00:12 Glucose (Fingerstick) 147 mg/dL (70-99) 130 mg/dL (70-99) 196 mg/dL (70-99) 173 mg/dL (70-99) Test 04/07/21 01:18 04/07/21 02:26 04/07/21 03:35 04/07/21 04:42 Glucose (Fingerstick) 140 mg/dL (70-99) 172 mg/dL (70-99) 139 mg/dL (70-99) 117 mg/dL (70-99) Test 04/07/21 05:55 04/07/21 06:50 04/07/21 07:48 04/07/21 08:08 Glucose (Fingerstick) 114 mg/dL (70-99) 103 mg/dL (70-99) 121 mg/dL (70-99) White Blood Count 10.1 x10^3/uL (4.0-11.0) Red Blood Count 4.41 x10^6/uL (3.50-5.40) Hemoglobin 13.4 g/dL (12.0-15.5) Hematocrit 38.3 % (36.0-47.0) Mean Corpuscular Volume 87 fL (79-100) Mean Corpuscular Hemoglobin 30 pg (25-35) Mean Corpuscular Hemoglobin Concent 35 g/dL (31-37) Red Cell Distribution Width 13.3 % (11.5-14.5) Platelet Count 404 x10^3/uL (140-400) Neutrophils (%) (Auto) 69 % (31-73) Lymphocytes (%) (Auto) 20 % (24-48) Monocytes (%) (Auto) 10 % (0-9) Eosinophils (%) (Auto) 1 % (0-3) Basophils (%) (Auto) 1 % (0-3) Neutrophils # (Auto) 6.9 x10^3/uL (1.8-7.7) Lymphocytes # (Auto) 2.0 x10^3/uL (1.0-4.8) Monocytes # (Auto) 1.0 x10^3/uL (0.0-1.1) Eosinophils # (Auto) 0.1 x10^3/uL (0.0-0.7) Basophils # (Auto) 0.1 x10^3/uL (0.0-0.2) Sodium Level 140 mmol/L (136-145) Potassium Level 2.8 mmol/L (3.5-5.1) Chloride Level 106 mmol/L (98-107) Carbon Dioxide Level 22 mmol/L (21-32) Anion Gap 12 (6-14) Blood Urea Nitrogen 8 mg/dL (7-20) Creatinine 0.7 mg/dL (0.6-1.0) Estimated GFR (Cockcroft-Gault) 90.5 BUN/Creatinine Ratio 11 (6-20) Glucose Level 118 mg/dL (70-99) Calcium Level 8.6 mg/dL (8.5-10.1) Total Bilirubin 0.3 mg/dL (0.2-1.0) Aspartate Amino Transf (AST/SGOT) 15 U/L (15-37) Alanine Aminotransferase (ALT/SGPT) 16 U/L (14-59) Alkaline Phosphatase 103 U/L (46-116) Total Protein 6.2 g/dL (6.4-8.2) Albumin 2.1 g/dL (3.4-5.0) Albumin/Globulin Ratio 0.5 (1.0-1.7) Test 04/07/21 09:58 Glucose (Fingerstick) 157 mg/dL (70-99) Laboratory Tests Test 04/06/21 11:59 04/06/21 13:04 04/06/21 14:04 04/06/21 14:19 Glucose (Fingerstick) 157 mg/dL (70-99) 153 mg/dL (70-99) 153 mg/dL (70-99) O2 Saturation 98 % (92-99) Arterial Blood pH 7.47 (7.35-7.45) Arterial Blood pCO2 at Patient Temp 23 mmHg (35-46) Arterial Blood pO2 at Patient Temp 114 mmHg (75-108) Arterial Blood HCO3 16 mmol/L (21-28) Arterial Blood Base Excess -5 mmol/L (-3-3) Oxyhemoglobin 97.7 % Methemoglobin 0.5 % (0.0-1.9) Carbon Monoxide, Quantitative 0.2 % (0.0-1.9) FiO2 21 Test 04/06/21 16:21 04/06/21 18:06 04/06/21 20:33 04/06/21 22:54 Glucose (Fingerstick) 139 mg/dL (70-99) 147 mg/dL (70-99) 130 mg/dL (70-99) 196 mg/dL (70-99) Test 04/07/21 00:12 04/07/21 01:18 04/07/21 02:26 04/07/21 03:35 Glucose (Fingerstick) 173 mg/dL (70-99) 140 mg/dL (70-99) 172 mg/dL (70-99) 139 mg/dL (70-99) Test 04/07/21 04:42 04/07/21 05:55 04/07/21 06:50 04/07/21 07:48 Glucose (Fingerstick) 117 mg/dL (70-99) 114 mg/dL (70-99) 103 mg/dL (70-99) 121 mg/dL (70-99) Test 04/07/21 08:08 04/07/21 09:58 White Blood Count 10.1 x10^3/uL (4.0-11.0) Red Blood Count 4.41 x10^6/uL (3.50-5.40) Hemoglobin 13.4 g/dL (12.0-15.5) Hematocrit 38.3 % (36.0-47.0) Mean Corpuscular Volume 87 fL (79-100) Mean Corpuscular Hemoglobin 30 pg (25-35) Mean Corpuscular Hemoglobin Concent 35 g/dL (31-37) Red Cell Distribution Width 13.3 % (11.5-14.5) Platelet Count 404 x10^3/uL (140-400) Neutrophils (%) (Auto) 69 % (31-73) Lymphocytes (%) (Auto) 20 % (24-48) Monocytes (%) (Auto) 10 % (0-9) Eosinophils (%) (Auto) 1 % (0-3) Basophils (%) (Auto) 1 % (0-3) Neutrophils # (Auto) 6.9 x10^3/uL (1.8-7.7) Lymphocytes # (Auto) 2.0 x10^3/uL (1.0-4.8) Monocytes # (Auto) 1.0 x10^3/uL (0.0-1.1) Eosinophils # (Auto) 0.1 x10^3/uL (0.0-0.7) Basophils # (Auto) 0.1 x10^3/uL (0.0-0.2) Sodium Level 140 mmol/L (136-145) Potassium Level 2.8 mmol/L (3.5-5.1) Chloride Level 106 mmol/L (98-107) Carbon Dioxide Level 22 mmol/L (21-32) Anion Gap 12 (6-14) Blood Urea Nitrogen 8 mg/dL (7-20) Creatinine 0.7 mg/dL (0.6-1.0) Estimated GFR (Cockcroft-Gault) 90.5 BUN/Creatinine Ratio 11 (6-20) Glucose Level 118 mg/dL (70-99) Calcium Level 8.6 mg/dL (8.5-10.1) Total Bilirubin 0.3 mg/dL (0.2-1.0) Aspartate Amino Transf (AST/SGOT) 15 U/L (15-37) Alanine Aminotransferase (ALT/SGPT) 16 U/L (14-59) Alkaline Phosphatase 103 U/L (46-116) Total Protein 6.2 g/dL (6.4-8.2) Albumin 2.1 g/dL (3.4-5.0) Albumin/Globulin Ratio 0.5 (1.0-1.7) Glucose (Fingerstick) 157 mg/dL (70-99) Microbiology 04/03/21 Blood Culture - Preliminary, Resulted NO GROWTH AFTER 3 DAYS 04/03/21 Urine Culture - Final, Complete Medications Current Medications Sodium Chloride 1,000 ml @ 1,000 mls/hr 1X ONCE IV Last administered on 04/03/21at 17:01; Start 04/03/21 at 16:30; Stop 04/03/21 at 17:29; Status DC Morphine Sulfate (Morphine Sulfate) 4 mg PRN Q15MIN PRN IV/SQ PAIN GREATER THAN 3/10 Last administered on 04/04/21at 08:24; Start 04/03/21 at 16:30; Stop 04/04/21 at 16:29; Status DC Ondansetron HCl (Zofran) 4 mg 1X ONCE IVP Last administered on 04/03/21at 17:00; Start 04/03/21 at 16:30; Stop 04/03/21 at 16:37; Status DC Sodium Chloride 1,000 ml @ 1,000 mls/hr 1X ONCE IV Last administered on 04/03/21at 19:37; Start 04/03/21 at 17:30; Stop 04/03/21 at 18:29; Status DC Levofloxacin/ Dextrose 100 ml @ 100 mls/hr 1X ONCE IV Last administered on 04/03/21at 19:22; Start 04/03/21 at 18:00; Stop 04/03/21 at 18:59; Status DC Sodium Chloride 1,000 ml @ 150 mls/hr CONT PRN IV SEE I/O RECORD Last administered on 04/05/21at 12:54; Start 04/03/21 at 19:00; Stop 04/05/21 at 14:17; Status DC Sodium Chloride 1,000 ml @ 500 mls/hr Q2H IV Last administered on 04/03/21at 21:13; Start 04/03/21 at 19:00; Stop 04/03/21 at 20:59; Status DC Insulin Human Regular 100 unit/ Sodium Chloride 101 ml @ 0 mls/hr CONT PRN PRN IV PER PROTOCOL Last administered on 04/04/21at 09:42; Start 04/03/21 at 19:00; Stop 04/04/21 at 15:54; Status DC Potassium Chloride/Water 100 ml @ 100 mls/hr PRN Q1HR PRN IV SEE COMMENTS; Start 04/03/21 at 19:00 Potassium Chloride/Water 100 ml @ 100 mls/hr PRN Q1HR PRN IV SEE COMMENTS; Start 04/03/21 at 19:00 Potassium Chloride/Water 100 ml @ 100 mls/hr PRN Q1HR PRN IV SEE COMMENTS; Start 04/03/21 at 19:00 Insulin Human Regular 100 ml @ 9.77 mls/hr 1X ONCE IV Last administered on 04/03/21at 21:11; Start 04/03/21 at 20:15; Stop 04/03/21 at 20:16; Status DC Ondansetron HCl (Zofran) 4 mg PRN Q8HRS PRN IVP NAUSEA/VOMITING; Start 04/03/21 at 21:30; Stop 04/04/21 at 21:29; Status DC Morphine Sulfate (Morphine Sulfate) 4 mg PRN Q2HR PRN IVP PAIN Last adm inistered on 04/04/21at 02:10; Start 04/03/21 at 21:30; Stop 04/04/21 at 21:29; Status DC Tamsulosin HCl (Flomax) 0.4 mg DAILY PO Last administered on 04/07/21at 08:43; Start 04/04/21 at 09:00 Hydralazine HCl (Apresoline Inj) 10 mg PRN Q4HRS PRN IVP ELEVATED BP, SEE COMMENTS; Start 04/03/21 at 23:00 Fentanyl Citrate (Fentanyl 2ml Vial) 25 mcg PRN Q3HRS PRN IVP SEVERE PAIN 7-10 Last administered on 04/06/21at 06:05; Start 04/03/21 at 23:00 Olanzapine (ZyPREXA ZYDIS) 5 mg PRN BID PRN PO ANXIETY / AGITATION; Start 04/03/21 at 23:00 Ceftriaxone Sodium (Rocephin) 2 gm Q24H IVP Last administered on 04/06/21at 21:57; Start 04/03/21 at 23:15 Insulin Human Lispro (HumaLOG) 0-7 UNITS TIDWMEALS SQ Last administered on 04/05/21at 09:24; Start 04/04/21 at 17:00 Dextrose (Dextrose 50%-Water Syringe) 12.5 gm PRN Q15MIN PRN IV SEE COMMENTS; Start 04/04/21 at 16:00 Insulin Glargine (Lantus Syringe) 10 unit QHS SQ Last administered on 04/05/21at 22:19; Start 04/05/21 at 21:00 Ondansetron HCl (Zofran) 4 mg PRN Q4HRS PRN IVP NAUSEA/VOMITING; Start 04/05/21 at 10:15 Insulin Human Regular 100 unit/ Sodium Chloride 101 ml @ 0 mls/hr CONT PRN IV SEE I/O RECORD Last administered on 04/05/21at 12:52; Start 04/05/21 at 10:30 Sodium Bicarbonate 150 meq/Dextrose 1,150 ml @ 125 mls/hr 1X ONCE IV Last administered on 04/05/21at 15:12; Start 04/05/21 at 14:30; Stop 04/05/21 at 23:41; Status DC Acetaminophen (Tylenol) 650 mg PRN Q6HRS PRN PO MILD PAIN / TEMP > 100.3'F Last administered on 04/07/21at 04:28; Start 04/05/21 at 20:00 Lidocaine (Lidoderm) 1 patch DAILY TD Last administered on 04/07/21 08:43; Start 04/05/21 at 20:00 Miscellaneous (Lidoderm Patch Removal) 1 ea QHS MC Last administered on 04/06/21at 21:00; Start 04/05/21 at 21:00 Potassium Chloride (Klor-Con) 40 meq 1X ONCE PO Last administered on 04/06/21at 11:53; Start 04/06/21 at 11:30; Stop 04/06/21 at 11:31; Status DC Active Scripts Active Reported [Delta 8] [Cbd] Vitals/I & O Vital Sign - Last 24 Hours 04/06/21 04/06/21 04/06/21 04/06/21 11:00 15:00 19:00 20:00 Temp 99.0 98.7 98.6 99.0 98.7 98.6 Pulse 78 74 81 Resp 20 20 20 B/P (MAP) 112/75 (87) 118/73 (88) 135/81 (99) Pulse Ox 99 98 98 O2 Delivery Room Air Room Air Room Air Room Air 04/06/21 04/07/21 04/07/21 23:00 03:06 07:00 Temp 97.8 98.2 98.8 97.8 98.2 98.8 Pulse 90 81 75 Resp 20 20 20 B/P (MAP) 133/79 (97) 133/82 (99) 123/79 (94) Pulse Ox 98 100 98 O2 Delivery Room Air Room Air Room Air Intake and Output 04/06/21 04/06/21 04/07/21 15:00 23:00 07:00 Intake Total 0 ml 0 ml Output Total 400 ml Balance 0 ml 0 ml -400 ml Justicifation of Admission Dx: Justifications for Admission: Justification of Admission Dx: Yes Sepsis: Infection KO ARCHER MD Apr 07, 2021 10:36
[2021-04-07] MEDS ORDERED: INSULIN GLARGINE SYRINGE. SQ SCH (10:45)
[2021-04-07] MEDS ORDERED: POTASSIUM BICARB 20 MEQ EFFERVESCENT TABLET. PO ONE (10:45)
[2021-04-07 11:00] VITALS: BP 128/82
--- NOTE | 2021-04-07 13:20 | PDOC ---
Infectious Disease Note Subjective Subjective pt is feeling better Vital Sign Vital Signs Vital Signs Date Time Temp Pulse Resp B/P (MAP) Pulse Ox O2 Delivery O2 Flow Rate FiO2 04/07/21 11:00 98.7 79 20 128/82 (97) 99 Room Air 98.7 Physical Exam PHYSICAL EXAM GENERAL: Alert, oriented female, who does not look comfortable. Breathing dominguez, she is okay. HEENT: Both pupils are round and reacting. No conjunctival lesion. No lesion in the mouth. NECK: Supple, no JVP, no lymphadenopathy. LUNGS: Clear. HEART: S1, S2 regular. ABDOMEN: Soft, nontender. No rebound or guarding. No organomegaly. EXTREMITIES: No edema or cyanosis. SKIN: Unremarkable. NEUROLOGIC: The patient is alert, awake. Moves all the extremities. No focal deficit. Labs Lab Laboratory Tests Test 04/06/21 14:04 04/06/21 14:19 04/06/21 16:21 04/06/21 18:06 Glucose (Fingerstick) 153 mg/dL (70-99) 139 mg/dL (70-99) 147 mg/dL (70-99) O2 Saturation 98 % (92-99) Arterial Blood pH 7.47 (7.35-7.45) Arterial Blood pCO2 at Patient Temp 23 mmHg (35-46) Arterial Blood pO2 at Patient Temp 114 mmHg (75-108) Arterial Blood HCO3 16 mmol/L (21-28) Arterial Blood Base Excess -5 mmol/L (-3-3) Oxyhemoglobin 97.7 % Methemoglobin 0.5 % (0.0-1.9) Carbon Monoxide, Quantitative 0.2 % (0.0-1.9) FiO2 21 Test 04/06/21 20:33 04/06/21 22:54 04/07/21 00:12 04/07/21 01:18 Glucose (Fingerstick) 130 mg/dL (70-99) 196 mg/dL (70-99) 173 mg/dL (70-99) 140 mg/dL (70-99) Test 04/07/21 02:26 04/07/21 03:35 04/07/21 04:42 04/07/21 05:55 Glucose (Fingerstick) 172 mg/dL (70-99) 139 mg/dL (70-99) 117 mg/dL (70-99) 114 mg/dL (70-99) Test 04/07/21 06:50 04/07/21 07:48 04/07/21 08:08 04/07/21 09:58 Glucose (Fingerstick) 103 mg/dL (70-99) 121 mg/dL (70-99) 157 mg/dL (70-99) White Blood Count 10.1 x10^3/uL (4.0-11.0) Red Blood Count 4.41 x10^6/uL (3.50-5.40) Hemoglobin 13.4 g/dL (12.0-15.5) Hematocrit 38.3 % (36.0-47.0) Mean Corpuscular Volume 87 fL (79-100) Mean Corpuscular Hemoglobin 30 pg (25-35) Mean Corpuscular Hemoglobin Concent 35 g/dL (31-37) Red Cell Distribution Width 13.3 % (11.5-14.5) Platelet Count 404 x10^3/uL (140-400) Neutrophils (%) (Auto) 69 % (31-73) Lymphocytes (%) (Auto) 20 % (24-48) Monocytes (%) (Auto) 10 % (0-9) Eosinophils (%) (Auto) 1 % (0-3) Basophils (%) (Auto) 1 % (0-3) Neutrophils # (Auto) 6.9 x10^3/uL (1.8-7.7) Lymphocytes # (Auto) 2.0 x10^3/uL (1.0-4.8) Monocytes # (Auto) 1.0 x10^3/uL (0.0-1.1) Eosinophils # (Auto) 0.1 x10^3/uL (0.0-0.7) Basophils # (Auto) 0.1 x10^3/uL (0.0-0.2) Sodium Level 140 mmol/L (136-145) Potassium Level 2.8 mmol/L (3.5-5.1) Chloride Level 106 mmol/L (98-107) Carbon Dioxide Level 22 mmol/L (21-32) Anion Gap 12 (6-14) Blood Urea Nitrogen 8 mg/dL (7-20) Creatinine 0.7 mg/dL (0.6-1.0) Estimated GFR (Cockcroft-Gault) 90.5 BUN/Creatinine Ratio 11 (6-20) Glucose Level 118 mg/dL (70-99) Calcium Level 8.6 mg/dL (8.5-10.1) Total Bilirubin 0.3 mg/dL (0.2-1.0) Aspartate Amino Transf (AST/SGOT) 15 U/L (15-37) Alanine Aminotransferase (ALT/SGPT) 16 U/L (14-59) Alkaline Phosphatase 103 U/L (46-116) Total Protein 6.2 g/dL (6.4-8.2) Albumin 2.1 g/dL (3.4-5.0) Albumin/Globulin Ratio 0.5 (1.0-1.7) Test 04/07/21 12:19 Glucose (Fingerstick) 273 mg/dL (70-99) Micro Microbiology 04/03/21 Blood Culture - Preliminary, Resulted NO GROWTH AFTER 1 DAY 04/03/21 Urine Culture - Final, Complete Objective Assessment 1. Pyelonephritis and/or plus or minus passed ureteral stone. UC 10K strep agalactiae 2. Metabolic acidosis, most likely she is going back into diabetic ketoacidosis. Improved 3. Leukocytosis. Improved 4. Fibromyalgia. 5. Diabetes.Poorly controlled Plan Plan of Care continue Rocephin. transition to po when ready for dc follow cultures. Supportive care. YVONNE SAHNI MD Apr 07, 2021 13:20
--- NOTE | 2021-04-07 14:48 | PDOC3 ---
Discharge Summary Date of Admission: Apr 03, 2021 Date of Discharge: Apr 07, 2021 Follow-Up: 3-5 days Admitting Diagnosis comment: VTE Prophylaxis Ordered VTE Prophylaxis Devices: No VTE Pharmacological Prophylaxi: Yes HPI History of Present Illness History of Present Illness Ms Bryan is a 45yo female with PMHx DM2, nephrolithiasis, neuropathy who presents to the ED today complaining of dysuria for 1 week and severe bilateral flank pain, symptoms began 3 days ago. She is also complaining of nausea, vomiting which began today, 04/03/2021. Denies any fever, but does have chills. Significant other bedside notes that she has had episodic confusion prior to moving from [place] and has been to neurology initially though very early onset dementia. Of note her hemoglobin A1c has never been less than 14. Since we will continue this for years ago she was treated with nausea and vomiting that started 1 month woman as well as Trulicity. Struggled with follow-up and was going to the "[facility]" clinic and stopped since the COVID-19 pandemic and has not seen a physician in the past year and half. She has never been hospitalized previously but has had outpatient treatment for nephroli thiasis with ESWL. WBC 27.3, Hb 15.7, platelets 156, NA 130, K4.3, chloride 94 HCO3 5 BUN 31, CR 1.5, BUN 13, glucose 467, magnesium 1.9, calcium 9.9, lactic acid 2.7, AST 9, bilirubin 0.4, ALT 10, alkaline phos is 140, albumin 3.6. UDS positive for cannabinoids. UA with large protein large glucose positive ketones positive blood positive leukocyte esterase moderate bacteria negative urine hCG. CT abdomen pelvis with left-sided perinephric and periureteral edema with hydronephrosis and hydroureter, wall thickening of the urinary bladder with adjacent edema to the fat and nonobstructive right renal stone. Given IVF, IV levofloxacin, IV insulin and admitted for further care NOW IMPROVED KANIKA DIET WELL D/W DR KAITLYN DEY Past Medical History Cardiovascular: HTN CENTRAL NERVOUS SYSTEM: Periperal neuropathy Renal/: Other (Nephrolithiasis) Endocrine: Diabetes consults id, nephrology complications none d/c diet ADA D/C MEDS SEE MAR SEE PCP IN 3-5 DAYS discharge dx ======== Assessment/Plan A/P: Left pyelonephritis - likely due to passed kidney stone. IV levaquin given PCN allergy with little likelihood of cephalosporin cross allergy will change to rocephin. IVF as well Sepsis - given empiric IVF, f/u urine and blood cultures, empiric levaquin for pyelo DKA - IVF insulin and fluids, npo except for water, nausea control. Can take PO and lantus when gap closes ALISHA - multifactorial, vasomotor nephropathy from dehydration 2/2 DKA and possibly some mild obstruction cleared on left Neuropathy - likely diabetic in nature given history of extremely poor control Cannabinoid positive - counseled on the safety and legality Hyponatremia - nutritional and DKA related, will monitor FEN - NPO PPX - heparin FULL CODE Dispo - inpatient RESTART INSULIN DRIP PROTOCOL 04-05 33 MIN CC TIME Justifications for Admission Justifications for Admission Other Justification History of Present Illness History of Present Illness identification/Chief Complaint Chief Complaint Abdominal pain Source Source: Caregiver, Chart review, Patient History of Present Illness History of Present Illness Ms Bryan is a 45yo female with PMHx DM2, nephrolithiasis, neuropathy who presents to the ED today complaining of dysuria for 1 week and severe bilateral flank pain, symptoms began 3 days ago. She is also complaining of nausea, vomiting which began today, 04/03/2021. Denies any fever, but does have chills. Significant other bedside notes that she has had episodic confusion prior to moving from [place] and has been to neurology initially though very early onset dementia. Of note her hemoglobin A1c has never been less than 14. Since we will continue this for years ago she was treated with nausea and vomiting that started 1 month woman as well as Trulicity. Struggled with follow-up and was going to the "[facility]" clinic and stopped since the COVID-19 pandemic and has not seen a physician in the past year and half. She has never been hospitalized previously but has had outpatient treatment for nephrolithiasis with ESWL. WBC 27.3, Hb 15.7, platelets 156, NA 130, K4.3, chloride 94 HCO3 5 BUN 31, CR 1.5, BUN 13, glucose 467, magnesium 1.9, calcium 9.9, lactic acid 2.7, AST 9, bilirubin 0.4, ALT 10, alkaline phos is 140, albumin 3.6. UDS positive for cannabinoids. UA with large protein large glucose positive ketones positive blood positive leukocyte esterase moderate bacteria negative urine hCG. CT abdomen pelvis with left-sided perinephric and periureteral edema with hydronephrosis and hydroureter, wall thickening of the urinary bladder with adjacent edema to the fat and nonobstructive right renal stone. Given IVF, IV levofloxacin, IV insulin and admitted for further care Past Medical History Cardiovascular: HTN CENTRAL NERVOUS SYSTEM: Periperal neuropathy Renal/: Other (Nephrolithiasis) Endocrine: Diabetes Past Surgical History Past Surgical History: Other (D&C, ESWL) Family History Family History: Diabetes, High Cholestrol, Hypertension Social History Smoke: No ALCOHOL: none Drugs: Marijuana Current Medications Current Medications Current Medications Sodium Chloride 1,000 ml @ 1,000 mls/hr 1X ONCE IV Last administered on 04/03/21at 17:01; Start 04/03/21 at 16:30; Stop 04/03/21 at 17:29; Status DC Morphine Sulfate (Morphine Sulfate) 4 mg PRN Q15MIN PRN IV/SQ PAIN GREATER THAN 3/10 Last administered on 04/03/21at 17:01; Start 04/03/21 at 16:30; Stop 04/04/21 at 16:29 Ondansetron HCl (Zofran) 4 mg 1X ONCE IVP Last administered on 04/03/21at 17:00; Start 04/03/21 at 16:30; Stop 04/03/21 at 16:37; Status DC Sodium Chloride 1,000 ml @ 1,000 mls/hr 1X ONCE IV ; Start 04/03/21 at 17:30; Stop 04/03/21 at 18:29; Status DC Levofloxacin/ Dextrose 100 ml @ 100 mls/hr 1X ONCE IV ; Start 04/03/21 at 18:00; Stop 04/03/21 at 18:59 Allergies Allergies: Coded Allergies: naproxen (Verified Allergy, Intermediate, 04/03/21) GIB Penicillins (Verified Allergy, Unknown, 04/03/21) ROS General: YES: Chills, Night Sweats, Fatigue, Malaise; No: Appetite, Other PSYCHOLOGICAL ROS: YES: Anxiety, Disorientation, Irritablity, Memory difficulties, Mood Swings, Obsessive thoughts; No: Behavioral Disorder, Concentration difficultie, Decreased libido, Depression, Hallucinations, Hostility, Physical abuse, Sexual abuse, Sleep di sturbances, Suicidal ideation, Other Eyes: Yes Blurry vision; No Decreased vision, No Double vision, No Dry eyes, No Excessive tearing, No Eye Pain, No Itchy Eyes, No Loss of vision, No Photophobia, No Scotomata, No Uses contacts, No Uses glasses, No Other HEENT: No: Heacaches, Visual Changes, Hearing change, Nasal congestion, Nasal discharge, Oral lesions, Sinus pain, Sore Throat, Epistaxis, Sneezing, Snoring, Tinnitus, Vertigo, Vocal changes, Other ALLERGY AND IMMUNOLOGY: No: Hives, Insect Bite Sensitivity, Itchy/Watery Eyes, Nasal Congestion, Post Nasal Drip, Seasonal Allergies, Other Hematological and Lymphatic: No: Bleeding Problems, Blood Clots, Blood Transfusions, Brusing, Night Sweats, Pallor, Swollen Lymph Nodes, Other ENDOCRINE: No: Breast Changes, Galactorrhea, Hair Pattern Changes, Hot Flashes, Malaise/lethargy, Mood Swings, Palpitations, Polydipsia/polyuria, Skin Changes, Temperature Intolerance, Unexpected Weight Changes, Other Breast: No New/Changing Breast Lumps, No Nipple changes, No Nipple discharge, No Other Respiratory: No: Cough, Hemoptysis, Orthopnea, Pleuritic Pain, Shortness of breath, SOB with excertion, Sputum Changes, Stridor, Tachypnea, Wheezing, Other Cardiovascular: No Chest Pain, No Palpitations, No Orthopnea, No Paroxysmal Noc. Dyspnea, No Edema, No Lt Headedness, No Other Gastrointestinal: Yes Nausea, Yes Abdominal Pain; No Vomiting, No Diarrhea, No Constipation, No Melena, No Hematochezia, No Other Genitourinary: YES Dysuria, YES Frequency, YES Retention, YES Urgency, YES Pain , YES Flank Pain; No Incontinence, No Hematuria, No Discharge, No Other, No , No , No , No , No , No , No Musculoskeletal: No Gait Disturbance, No Joint Pain, No Joint Stiffness, No Joint Swelling, No Muscle Pain, No Muscular Weakness, No Pain In:, No Swelling In:, No Other Neurological: Yes Memory Loss, Yes Numbness/Tingling; No Behavorial Changes, No Bowel/Bladder ControlChng, No Confusion, No Dizziness, No Gait Disturbance, No Headaches, No Impaired Coord/balance, No Seizures, No Speech Problems, No Tremors, No Visual Changes, No Weakness, No Other Skin: No Dry Skin, No Eczema, No Hair Changes, No Lumps, No Mole Changes, No Mottling, No Nail Changes, No Pruritus, No Rash, No Skin Lesion Changes, No Other, No Acne 04-04 Left pyelonephritis - passed kidney stone. IV levaquin given PCN allergy with little likelihood of cephalosporin cross allergy will change to rocephin. IVF as well Left-sided moderate hydronephrosis and hydroureter with perinephric edema. There is a suspected 3 mm high density focus within the urinary bladder. Urinary bladder is decompressed with prominence the wall and some haziness of the adjacent fat. Nonobstructive right renal stone without right-sided hydronephrosis. Sepsis - given empiric IVF, f/u urine and blood cultures, empiric levaquin for pyelo DKA - IVF insulin and fluids, npo except for water, nausea control. Can take PO and lantus when gap closes ALISHA - multifactorial, vasomotor nephropathy from dehydration 2/2 DKA and possibly some mild obstruction cleared on left Neuropathy - likely diabetic in nature given history of extremely poor control Cannabinoid positive - counseled on the safety and legality Hyponatremia - nutritional and DKA related D/W RN ID CONSULT 37 min pt exam, chart review, > 50% of time spent with exam, chart review, pt care coordination 04-05 Mild prominence the wall the distal esophagus which could be from lack of d istention but would correlate with symptoms given that a pathologic cause such as esophagitis Left pyelonephritis - passed kidney stone. IV levaquin given PCN allergy with little likelihood of cephalosporin cross allergy will change to rocephin. IVF as well Left-sided moderate hydronephrosis and hydroureter with perinephric edema. There is a suspected 3 mm high density focus within the urinary bladder. Urinary bladder is decompressed with prominence the wall and some haziness of the adjacent fat. Nonobstructive right renal stone without right-sided hydronephrosis. Sepsis - given empiric IVF, f/u urine and blood cultures, empiric levaquin for pyelo DKA - IVF insulin and fluids, npo except for water, nausea control. Can take PO and lantus when gap closes ALISHA - multifactorial, vasomotor nephropathy from dehydration 2/2 DKA and possibly some mild obstruction cleared on left Neuropathy - likely diabetic in nature given history of extremely poor control Cannabinoid positive - counseled on the safety and legality Hyponatremia - nutritional and DKA related D/W RN ID CONSULT NEPHROLOGY CONSULT 36 min pt exam, chart review, > 50% of time spent with exam, chart review, pt care coordination 04-06 k=2.6, replaced ALISHA - multifactorial, vasomotor nephropathy from dehydration 2/2 DKA and possibly some mild obstruction cleared on left Mild prominence the wall the distal esophagus which could be from lack of distention but would correlate with symptoms given that a pathologic cause such as esophagitis Left pyelonephritis - passed kidney stone. IV levaquin given PCN allergy with little likelihood of cephalosporin cross allergy will change to rocephin. IVF as well Left-sided moderate hydronephrosis and hydroureter with perinephric edema. There is a suspected 3 mm high density focus within the urinary bladder. Urinary bladder is decompressed with prominence the wall and some haziness of the adjacent fat. Nonobstructive right renal stone without right-sided hydronephrosis. Sepsis - given empiric IVF, f/u urine and blood cultures, empiric levaquin for pyelo DKA - IVF insulin and fluids, npo except for water, nausea control. Can take PO and lantus when gap closes ALISHA - multifactorial, vasomotor nephropathy from dehydration 2/2 DKA and possibly some mild obstruction cleared on left Neuropathy - likely diabetic in nature given history of extremely poor control Cannabinoid positive - counseled on the safety and legality Hyponatremia - nutritional and DKA related D/W RN ID CONSULT NEPHROLOGY CONSULT renal us 04-06 pending 32 min cc time 04-07 k=2.6, replaced ALISHA - multifactorial, vasomotor nephropathy from dehydration 2/2 DKA and possibly some mild obstruction cleared on left Mild prominence the wall the distal esophagus which could be from lack of distention but would correlate with symptoms given that a pathologic cause such as esophagitis Left pyelonephritis - passed kidney stone. IV levaquin given PCN allergy with little likelihood of cephalosporin cross allergy will change to rocephin. IVF as well Left-sided moderate hydronephrosis and hydroureter with perinephric edema. There is a suspected 3 mm high density focus within the urinary bladder. Urinary bladder is decompressed with prominence the wall and some haziness of the adjacent fat. Nonobstructive right renal stone without right-sided hydronephrosis. Sepsis - given empiric IVF, f/u urine and blood cultures, empiric levaquin for pyelo DKA - IVF insulin and fluids, npo except for water, nausea control. Can take PO and lantus when gap closes ALISHA - multifactorial, vasomotor nephropathy from dehydration 2/2 DKA and possibly some mild obstruction cleared on left Neuropathy - likely diabetic in nature given history of extremely poor control Cannabinoid positive - counseled on the safety and legality Hyponatremia - nutritional and DKA related D/W RN ID CONSULT NEPHROLOGY CONSULT renal us 04-06 D/C PLANNING 34 MIN D/W DR KAITLYN JONES FOR D/C TODAY PO KEFLEX X 10 DAYS Vitals Vitals Vital Signs Date Time Temp Pulse Resp B/P (MAP) Pulse Ox O2 Delivery O2 Flow Rate FiO2 04/07/21 07:00 98.8 75 20 123/79 (94) 98 Room Air 98.8 Physical Exam Physical Exam GENERAL: Alert, oriented female, who does not look comfortable. Breathing dominguez, she is okay. HEENT: Both pupils are round and reacting. No conjunctival lesion. No lesion in the mouth. NECK: Supple, no JVP, no lymphadenopathy. LUNGS: Clear. HEART: S1, S2 regular. ABDOMEN: Soft, nontender. No rebound or guarding. No organomegaly. EXTREMITIES: No edema or cyanosis. SKIN: Unremarkable. NEUROLOGIC: The patient is alert, awake. Moves all the extremities. No focal deficit. General: Alert, Oriented X3, Cooperative, No acute distress Heart: Regular rate, Normal S1, Normal S2, No murmurs, Gallops Abdomen: Normal bowel sounds, Soft Extremities: No clubbing, No cyanosis, No edema, Normal pulses, No tenderness/swelling FINAL DIAGNOSIS Problems Medical Problems: (1) Acute kidney injury Status: Acute (2) Acute pyelonephritis Status: Acute (3) DKA (diabetic ketoacidosis) Status: Acute (4) Sepsis Status: Acute Brief Hospital Course Ms. Bryan is a 45 old [sex] who presented with [ACUTE PYELONEPHRITIS ] CONDITION AT DISCHARGE: Improved Discharge Medications Current Medications Sodium Chloride 1,000 ml @ 1,000 mls/hr 1X ONCE IV Last administered on 04/03/21at 17:01; Start 04/03/21 at 16:30; Stop 04/03/21 at 17:29; Status DC Morphine Sulfate (Morphine Sulfate) 4 mg PRN Q15MIN PRN IV/SQ PAIN GREATER THAN 3/10 Last administered on 04/04/21at 08:24; Start 04/03/21 at 16:30; Stop 04/04/21 at 16:29; Status DC Ondansetron HCl (Zofran) 4 mg 1X ONCE IVP Last administered on 04/03/21at 17:00; Start 04/03/21 at 16:30; Stop 04/03/21 at 16:37; Status DC Sodium Chloride 1,000 ml @ 1,000 mls/hr 1X ONCE IV Last administered on 04/03/21at 19:37; Start 04/03/21 at 17:30; Stop 04/03/21 at 18:29; Status DC Levofloxacin/ Dextrose 100 ml @ 100 mls/hr 1X ONCE IV Last administered on 04/03/21at 19:22; Start 04/03/21 at 18:00; Stop 04/03/21 at 18:59; Status DC Sodium Chloride 1,000 ml @ 150 mls/hr CONT PRN IV SEE I/O RECORD Last administered on 04/05/21at 12:54; Start 04/03/21 at 19:00; Stop 04/05/21 at 14:17; Status DC Sodium Chloride 1,000 ml @ 500 mls/hr Q2H IV Last administered on 04/03/21at 21:13; Start 04/03/21 at 19:00; Stop 04/03/21 at 20:59; Status DC Insulin Human Regular 100 unit/ Sodium Chloride 101 ml @ 0 mls/hr CONT PRN PRN IV PER PROTOCOL Last administered on 04/04/21at 09:42; Start 04/03/21 at 19:00; Stop 04/04/21 at 15:54; Status DC Potassium Chloride/Water 100 ml @ 100 mls/hr PRN Q1HR PRN IV SEE COMMENTS; Start 04/03/21 at 19:00 Potassium Chloride/Water 100 ml @ 100 mls/hr PRN Q1HR PRN IV SEE COMMENTS; Start 04/03/21 at 19:00 Potassium Chloride/Water 100 ml @ 100 mls/hr PRN Q1HR PRN IV SEE COMMENTS; Start 04/03/21 at 19:00 Insulin Human Regular 100 ml @ 9.77 mls/hr 1X ONCE IV Last administered on 04/03/21at 21:11; Start 04/03/21 at 20:15; Stop 04/03/21 at 20:16; Status DC Ondansetron HCl (Zofran) 4 mg PRN Q8HRS PRN IVP NAUSEA/VOMITING; Start 04/03/21 at 21:30; Stop 04/04/21 at 21:29; Status DC Morphine Sulfate (Morphine Sulfate) 4 mg PRN Q2HR PRN IVP PAIN Last admin istered on 04/04/21at 02:10; Start 04/03/21 at 21:30; Stop 04/04/21 at 21:29; Status DC Tamsulosin HCl (Flomax) 0.4 mg DAILY PO Last administered on 04/07/21at 08:43; Start 04/04/21 at 09:00 Hydralazine HCl (Apresoline Inj) 10 mg PRN Q4HRS PRN IVP ELEVATED BP, SEE COMMENTS; Start 04/03/21 at 23:00 Fentanyl Citrate (Fentanyl 2ml Vial) 25 mcg PRN Q3HRS PRN IVP SEVERE PAIN 7-10 Last administered on 04/06/21at 06:05; Start 04/03/21 at 23:00 Olanzapine (ZyPREXA ZYDIS) 5 mg PRN BID PRN PO ANXIETY / AGITATION; Start 04/03/21 at 23:00 Ceftriaxone Sodium (Rocephin) 2 gm Q24H IVP Last administered on 04/06/21at 21:57; Start 04/03/21 at 23:15 Insulin Human Lispro (HumaLOG) 0-7 UNITS TIDWMEALS SQ Last administered on 04/07/21at 12:41; Start 04/04/21 at 17:00 Dextrose (Dextrose 50%-Water Syringe) 12.5 gm PRN Q15MIN PRN IV SEE COMMENTS; Start 04/04/21 at 16:00 Insulin Glargine (Lantus Syringe) 10 unit QHS SQ Last administered on 04/05/21at 22:19; Start 04/05/21 at 21:00 Ondansetron HCl (Zofran) 4 mg PRN Q4HRS PRN IVP NAUSEA/VOMITING; Start 04/05/21 at 10:15 Insulin Human Regular 100 unit/ Sodium Chloride 101 ml @ 0 mls/hr CONT PRN IV SEE I/O RECORD Last administered on 04/05/21at 12:52; Start 04/05/21 at 10:30; Stop 04/07/21 at 10:46; Status DC Sodium Bicarbonate 150 meq/Dextrose 1,150 ml @ 125 mls/hr 1X ONCE IV Last administered on 04/05/21at 15:12; Start 04/05/21 at 14:30; Stop 04/05/21 at 23:41; Status DC Acetaminophen (Tylenol) 650 mg PRN Q6HRS PRN PO MILD PAIN / TEMP > 100.3'F Last administered on 04/07/21 04:28; Start 04/05/21 at 20:00 Lidocaine (Lidoderm) 1 patch DAILY TD Last administered on 04/07/21 08:43; Start 04/05/21 at 20:00 Miscellaneous (Lidoderm Patch Removal) 1 ea QHS MC Last administered on 04/06/21 21:00; Start 04/05/21 at 21:00 Potassium Chloride (Klor-Con) 40 meq 1X ONCE PO Last administered on 04/06/21 11:53; Start 04/06/21 at 11:30; Stop 04/06/21 at 11:31; Status DC Potassium Bicarbonate (Potassium Effervescent Tablet) 40 meq 1X ONCE PO Last administered on 04/07/21 11:03; Start 04/07/21 at 10:45; Stop 04/07/21 at 10:51; Status DC Insulin Glargine (Lantus Syringe) 10 unit DAILY SQ Last administered on 04/07/21at 11:37; Start 04/07/21 at 10:45 Active Scripts Active Reported [Delta 8] [Cbd] Vital Signs Vital Signs Date Time Temp Pulse Resp B/P (MAP) Pulse Ox O2 Delivery O2 Flow Rate FiO2 04/07/21 11:00 98.7 79 20 128/82 (97) 99 Room Air 98.7 Labs Laboratory Tests Test 04/05/21 15:09 04/05/21 16:55 04/05/21 18:02 04/05/21 19:26 Glucose (Fingerstick) 225 mg/dL (70-99) 208 mg/dL (70-99) 197 mg/dL (70-99) 189 mg/dL (70-99) Test 04/05/21 20:26 04/05/21 21:15 04/05/21 22:22 04/05/21 23:30 Glucose (Fingerstick) 171 mg/dL (70-99) 175 mg/dL (70-99) 145 mg/dL (70-99) 117 mg/dL (70-99) Test 04/06/21 00:39 04/06/21 01:56 04/06/21 02:51 04/06/21 04:10 Glucose (Fingerstick) 111 mg/dL (70-99) 131 mg/dL (70-99) 131 mg/dL (70-99) 122 mg/dL (70-99) Test 04/06/21 04:52 04/06/21 06:20 04/06/21 07:27 04/06/21 07:52 Glucose (Fingerstick) 129 mg/dL (70-99) 118 mg/dL (70-99) 151 mg/dL (70-99) 171 mg/dL (70-99) Test 04/06/21 07:54 04/06/21 08:34 04/06/21 09:36 04/06/21 10:00 White Blood Count 14.6 x10^3/uL (4.0-11.0) Red Blood Count 4.21 x10^6/uL (3.50-5.40) Hemoglobin 12.4 g/dL (12.0-15.5) Hematocrit 36.9 % (36.0-47.0) Mean Corpuscular Volume 88 fL (79-100) Mean Corpuscular Hemoglobin 29 pg (25-35) Mean Corpuscular Hemoglobin Concent 34 g/dL (31-37) Red Cell Distribution Width 13.6 % (11.5-14.5) Platelet Count 366 x10^3/uL (140-400) Neutrophils (%) (Auto) 81 % (31-73) Lymphocytes (%) (Auto) 8 % (24-48) Monocytes (%) (Auto) 9 % (0-9) Eosinophils (%) (Auto) 1 % (0-3) Basophils (%) (Auto) 1 % (0-3) Neutrophils # (Auto) 11.8 x10^3/uL (1.8-7.7) Lymphocytes # (Auto) 1.2 x10^3/uL (1.0-4.8) Monocytes # (Auto) 1.3 x10^3/uL (0.0-1.1) Eosinophils # (Auto) 0.1 x10^3/uL (0.0-0.7) Basophils # (Auto) 0.2 x10^3/uL (0.0-0.2) Glucose (Fingerstick) 162 mg/dL (70-99) 153 mg/dL (70-99) Sodium Level 136 mmol/L (136-145) Potassium Level 2.6 mmol/L (3.5-5.1) Chloride Level 103 mmol/L (98-107) Carbon Dioxide Level 21 mmol/L (21-32) Anion Gap 12 (6-14) Blood Urea Nitrogen 15 mg/dL (7-20) Creatinine 0.8 mg/dL (0.6-1.0) Estimated GFR (Cockcroft-Gault) 77.6 BUN/Creatinine Ratio 19 (6-20) Glucose Level 159 mg/dL (70-99) Calcium Level 8.8 mg/dL (8.5-10.1) Total Bilirubin 0.3 mg/dL (0.2-1.0) Aspartate Amino Transf (AST/SGOT) 8 U/L (15-37) Alanine Aminotransferase (ALT/SGPT) 14 U/L (14-59) Alkaline Phosphatase 105 U/L (46-116) Total Protein 6.4 g/dL (6.4-8.2) Albumin 2.2 g/dL (3.4-5.0) Albumin/Globulin Ratio 0.5 (1.0-1.7) Test 04/06/21 11:59 04/06/21 13:04 04/06/21 14:04 04/06/21 14:19 Glucose (Fingerstick) 157 mg/dL (70-99) 153 mg/dL (70-99) 153 mg/dL (70-99) O2 Saturation 98 % (92-99) Arterial Blood pH 7.47 (7.35-7.45) Arterial Blood pCO2 at Patient Temp 23 mmHg (35-46) Arterial Blood pO2 at Patient Temp 114 mmHg (75-108) Arterial Blood HCO3 16 mmol/L (21-28) Arterial Blood Base Excess -5 mmol/L (-3-3) Oxyhemoglobin 97.7 % Methemoglobin 0.5 % (0.0-1.9) Carbon Monoxide, Quantitative 0.2 % (0.0-1.9) FiO2 21 Test 04/06/21 16:21 04/06/21 18:06 04/06/21 20:33 04/06/21 22:54 Glucose (Fingerstick) 139 mg/dL (70-99) 147 mg/dL (70-99) 130 mg/dL (70-99) 196 mg/dL (70-99) Test 04/07/21 00:12 04/07/21 01:18 04/07/21 02:26 04/07/21 03:35 Glucose (Fingerstick) 173 mg/dL (70-99) 140 mg/dL (70-99) 172 mg/dL (70-99) 139 mg/dL (70-99) Test 04/07/21 04:42 04/07/21 05:55 04/07/21 06:50 04/07/21 07:48 Glucose (Fingerstick) 117 mg/dL (70-99) 114 mg/dL (70-99) 103 mg/dL (70-99) 121 mg/dL (70-99) Test 04/07/21 08:08 04/07/21 09:58 04/07/21 12:19 White Blood Count 10.1 x10^3/uL (4.0-11.0) Red Blood Count 4.41 x10^6/uL (3.50-5.40) Hemoglobin 13.4 g/dL (12.0-15.5) Hematocrit 38.3 % (36.0-47.0) Mean Corpuscular Volume 87 fL (79-100) Mean Corpuscular Hemoglobin 30 pg (25-35) Mean Corpuscular Hemoglobin Concent 35 g/dL (31-37) Red Cell Distribution Width 13.3 % (11.5-14.5) Platelet Count 404 x10^3/uL (140-400) Neutrophils (%) (Auto) 69 % (31-73) Lymphocytes (%) (Auto) 20 % (24-48) Monocytes (%) (Auto) 10 % (0-9) Eosinophils (%) (Auto) 1 % (0-3) Basophils (%) (Auto) 1 % (0-3) Neutrophils # (Auto) 6.9 x10^3/uL (1.8-7.7) Lymphocytes # (Auto) 2.0 x10^3/uL (1.0-4.8) Monocytes # (Auto) 1.0 x10^3/uL (0.0-1.1) Eosinophils # (Auto) 0.1 x10^3/uL (0.0-0.7) Basophils # (Auto) 0.1 x10^3/uL (0.0-0.2) Sodium Level 140 mmol/L (136-145) Potassium Level 2.8 mmol/L (3.5-5.1) Chloride Level 106 mmol/L (98-107) Carbon Dioxide Level 22 mmol/L (21-32) Anion Gap 12 (6-14) Blood Urea Nitrogen 8 mg/dL (7-20) Creatinine 0.7 mg/dL (0.6-1.0) Estimated GFR (Cockcroft-Gault) 90.5 BUN/Creatinine Ratio 11 (6-20) Glucose Level 118 mg/dL (70-99) Calcium Level 8.6 mg/dL (8.5-10.1) Total Bilirubin 0.3 mg/dL (0.2-1.0) Aspartate Amino Transf (AST/SGOT) 15 U/L (15-37) Alanine Aminotransferase (ALT/SGPT) 16 U/L (14-59) Alkaline Phosphatase 103 U/L (46-116) Total Protein 6.2 g/dL (6.4-8.2) Albumin 2.1 g/dL (3.4-5.0) Albumin/Globulin Ratio 0.5 (1.0-1.7) Glucose (Fingerstick) 157 mg/dL (70-99) 273 mg/dL (70-99) Laboratory Tests Test 04/06/21 16:21 04/06/21 18:06 04/06/21 20:33 04/06/21 22:54 Glucose (Fingerstick) 139 mg/dL (70-99) 147 mg/dL (70-99) 130 mg/dL (70-99) 196 mg/dL (70-99) Test 04/07/21 00:12 04/07/21 01:18 04/07/21 02:26 04/07/21 03:35 Glucose (Fingerstick) 173 mg/dL (70-99) 140 mg/dL (70-99) 172 mg/dL (70-99) 139 mg/dL (70-99) Test 04/07/21 04:42 04/07/21 05:55 04/07/21 06:50 04/07/21 07:48 Glucose (Fingerstick) 117 mg/dL (70-99) 114 mg/dL (70-99) 103 mg/dL (70-99) 121 mg/dL (70-99) Test 04/07/21 08:08 04/07/21 09:58 04/07/21 12:19 White Blood Count 10.1 x10^3/uL (4.0-11.0) Red Blood Count 4.41 x10^6/uL (3.50-5.40) Hemoglobin 13.4 g/dL (12.0-15.5) Hematocrit 38.3 % (36.0-47.0) Mean Corpuscular Volume 87 fL (79-100) Mean Corpuscular Hemoglobin 30 pg (25-35) Mean Corpuscular Hemoglobin Concent 35 g/dL (31-37) Red Cell Distribution Width 13.3 % (11.5-14.5) Platelet Count 404 x10^3/uL (140-400) Neutrophils (%) (Auto) 69 % (31-73) Lymphocytes (%) (Auto) 20 % (24-48) Monocytes (%) (Auto) 10 % (0-9) Eosinophils (%) (Auto) 1 % (0-3) Basophils (%) (Auto) 1 % (0-3) Neutrophils # (Auto) 6.9 x10^3/uL (1.8-7.7) Lymphocytes # (Auto) 2.0 x10^3/uL (1.0-4.8) Monocytes # (Auto) 1.0 x10^3/uL (0.0-1.1) Eosinophils # (Auto) 0.1 x10^3/uL (0.0-0.7) Basophils # (Auto) 0.1 x10^3/uL (0.0-0.2) Sodium Level 140 mmol/L (136-145) Potassium Level 2.8 mmol/L (3.5-5.1) Chloride Level 106 mmol/L (98-107) Carbon Dioxide Level 22 mmol/L (21-32) Anion Gap 12 (6-14) Blood Urea Nitrogen 8 mg/dL (7-20) Creatinine 0.7 mg/dL (0.6-1.0) Estimated GFR (Cockcroft-Gault) 90.5 BUN/Creatinine Ratio 11 (6-20) Glucose Level 118 mg/dL (70-99) Calcium Level 8.6 mg/dL (8.5-10.1) Total Bilirubin 0.3 mg/dL (0.2-1.0) Aspartate Amino Transf (AST/SGOT) 15 U/L (15-37) Alanine Aminotransferase (ALT/SGPT) 16 U/L (14-59) Alkaline Phosphatase 103 U/L (46-116) Total Protein 6.2 g/dL (6.4-8.2) Albumin 2.1 g/dL (3.4-5.0) Albumin/Globulin Ratio 0.5 (1.0-1.7) Glucose (Fingerstick) 157 mg/dL (70-99) 273 mg/dL (70-99) Allergies Allergies Coded Allergies Type Severity Reaction Last Updated Verified latex Allergy Mild Rash 04/04/21 Yes Penicillins Allergy Unknown 04/03/21 Yes naproxen Adverse Reaction Intermediate 04/04/21 Yes Disposition/Orders: D/C to Home Justicifation of Admission Dx: Justifications for Admission: Justification of Admission Dx: Yes Sepsis: Infection KO ARCHER MD Apr 07, 2021 14:47
[2021-04-07] MEDS ORDERED: INSU100V35 SQ (14:51)
[2021-04-07] MEDS ORDERED: ACET325T21 PO (14:51)
[2021-04-07] MEDS ORDERED: TAMS0.4C97 PO (14:51)
[2021-04-07] MEDS ORDERED: INSU100V8 SQ (14:51)
[2021-04-07] MEDS ORDERED: CEPH500C PO (14:51)
[2021-04-07] MEDS ORDERED: LIDO700A21 TD (14:51)
--- NOTE | 2021-04-07 14:52 | DISCH ---
DISCHARGE INSTRUCTIONS Condition on Discharge Condition on Discharge: Stable Activity After Discharge Activity Instructions for Disc: Activity as tolerated Lifting Instructions after Dis: No heavy lifting, No pulling or pushing Driving Instructions after Dis: Do not drive Diet after Discharge Diet after Discharge: Diabetic No Calorie Level Liquid Texture: Thin Liquid Wound Incision Care Wound/Incision Care: No wound care needed Checks after Discharge Checks after discharge: Check blood press - daily Contacting the DR. after DC Call your doctor for: If your condition worsens Follow-Up Follow up with: SEE YOUR PCP IN 3-10 DAYS Treatment/Equipment after DC Adaptive Equipment Issued: KO Parada MD Apr 07, 2021 14:52
[2021-04-07 15:00] VITALS: BP 125/83
--- NOTE | 2021-04-08 08:55 | RAD ---
Exam Date: 04/06/2021 4:58 PM US RENAL BILAT Indication: Reason: hydronephrosis / Spl. Instructions: / History: . PROCEDURE: COMPLETE RETROPERITONEAL ULTRASOUND TECHNIQUE: Multiple longitudinal and transverse sonographic images of the kidneys and bladder were o btained. FINDINGS: There is a 5 mm nonobstructing calculus in the right kidney. No left renal calculi are see n. The kidneys are normal in size, contour and echotexture. The right kidney measures 12.9 cm and the l eft kidney measures 14.8 cm in length. There is no hydronephrosis, solid renal mass or perinephric f luid. Visualized abdominal aorta and IVC are within normal limits. Urinary bladder is suboptimally evaluated due to underdistention, though no definite abnormality is s een in the pelvis in the midline. IMPRESSION: Nonobstructing right renal calculus. No hydronephrosis. Electronically signed by: Kurt Bermudez MD (04/08/2021 8:53 AM) [facility]
== END 2021-04-07 19:30 | disposition home or self-care (01) | DRG 871 ==
LOC: ER 16:03 → 5 NORTH 19:45
PROVIDERS: ADMIT Internal Medicine; ATTEND Internal Medicine
DX: A41.9 Sepsis, unspecified organism (principal); E11.10 Type 2 diabetes mellitus with ketoacidosis without coma; N17.0 Acute kidney failure with tubular necrosis; E87.1 Hypo-osmolality and hyponatremia; N13.6 Pyonephrosis; E86.0 Dehydration; F03.90 Unspecified dementia, unspecified severity, without behavioral disturbance, psychotic disturbance, mood disturbance, and anxiety; F43.10 Post-traumatic stress disorder, unspecified; I10 Essential (primary) hypertension; M79.7 Fibromyalgia; F32.9 Major depressive disorder, single episode, unspecified; F41.9 Anxiety disorder, unspecified; E11.42 Type 2 diabetes mellitus with diabetic polyneuropathy; K21.9 Gastro-esophageal reflux disease without esophagitis; Z20.822 Contact with and (suspected) exposure to COVID-19; F12.90 Cannabis use, unspecified, uncomplicated; K42.9 Umbilical hernia without obstruction or gangrene; B95.4 Other streptococcus as the cause of diseases classified elsewhere; Z82.49 Family history of ischemic heart disease and other diseases of the circulatory system; Z83.3 Family history of diabetes mellitus; Z87.442 Personal history of urinary calculi; Z87.891 Personal history of nicotine dependence; Z88.0 Allergy status to penicillin; Z88.8 Allergy status to other drugs, medicaments and biological substances; Z91.040 Latex allergy status; Z71.51 Drug abuse counseling and surveillance of drug abuser
CPT/HCPCS: 36415; 36600; 74176; 76770; 80048; 80053; 80307; 81001; 81025; 82010; 82805; 82962; 83036; 83605; 83690; 83735; 84100; 84132; 85007; 85025; 86140; 87040; 87077; 87086; 87426; 96361; 96365; 96375; G0480; J0696; J1815; J1956; J2270; J2405; J3010; J3490; J7030; J7060; U0003; U0005; 99285-25; G0378